=== PATIENT | female | born 1985 | race Caucasian/White ===

== ENCOUNTER 2017-07-05 06:57 | Outpatient (CLI) | payer MEDICAID | END 2017-07-05 06:58 | disposition home or self-care (01) | LOC: EMS 06:57 | PROVIDERS: ATTEND Surgery | DX: R11.10 Vomiting, unspecified (principal) | CPT/HCPCS: A0425; A0429 ==

== ENCOUNTER 2017-07-05 07:15 | Emergency (ER) | payer MEDICAID ==
[2017-07-05 07:21] VITALS: BP 120/76
[2017-07-05] MEDS ORDERED: ONDANSETRON 4 MG/2 ML VIAL IVP STA (07:26)
[2017-07-05] MEDS ORDERED: SODIUM CHLORIDE 0.9% 2,000 ML IV ONE (07:26)
[2017-07-05] MEDS ORDERED: KETOROLAC 60 MG/2 ML VIAL IVP STA (07:26)
--- NOTE | 2017-07-05 07:30 | ED Physician Documentation ---
History of Present Illness - Stated complaint Stated Complaint: ABD PAIN, N/V - Chief complaint Chief Complaint: Abd Pain - Additonal information Additional information: hx from pt 32 female no PMHx no prior surgeries, no meds no allergies, denies preg staying at [facility] and getting meals at [employer] had some abd bloating yesterday and then about 9pm last night, 5 hr after eating dinner (spaghetti), she developed NVD and int sharp abd pains no blood in vomit or diarrhea no one else is ill no travel no recent antibiotics no fever Review of Systems Constitutional: denies: Fever, Chills Cardiac: denies: Chest pain / pressure Respiratory: denies: Dyspnea GI: reports: Abdominal Pain, Nausea, Vomiting, Diarrhea. denies: Hematemesis, Bloody / black stool : denies: Now EGA (denies) Endocrine: denies: Easy bruising / bleeding Immunocompromised: denies: Immunocompromised PD PAST MEDICAL HISTORY - Past Surgical History Past Surgical History: No - Present Medications Home Medications: Ambulatory Orders Medication Instructions Recorded Confirmed Dicyclomine [Bentyl] 10 mg PO Q8H PRN #20 capsule 07/05/17 Ondansetron Odt [Zofran] 4 mg TL Q6H PRN #10 tablet 07/05/17 - Allergies Allergies/Adverse Reactions: Allergies Allergy/AdvReac Type Severity Reaction Status Date / Time No Known Drug Allergies Allergy Verified 07/05/17 07:21 - Social History Does the pt smoke?: Yes Smoking Status: Current every day smoker Does the pt drink ETOH?: Yes Does the pt have substance abuse?: No - Immunizations Immunizations are current?: No Immunizations: TDAP >10years/unknown - POLST Patient has POLST: No PD ED PE NORMAL - Vitals Vital signs reviewed: Yes - General General: Alert and oriented X 3 - HEENT HEENT: Other (dry chapped lips) - Cardiac Cardiac: RRR - Respiratory Respiratory: No respiratory distress - Abdomen Abdomen: Soft, Non tender - Derm Derm: Normal color - Neuro Neuro: Alert and oriented X 3 Results - Vitals Vitals: Vital Signs - 24 hr 07/05/17 07:18 Temperature 36.6 C Heart Rate 85 Respiratory 14 Rate Blood Pressure 120/76 O2 Saturation 96 Oxygen O2 Source Room air - Labs Labs: Laboratory Tests 07/05/17 07/05/17 07/05/17 07:30 07:30 07:30 WBC 14.2 H RBC 5.11 Hgb 15.8 Hct 45.8 MCV 89.5 MCH 31.0 MCHC 34.6 RDW 13.2 Plt Count 246 MPV 8.7 Neut # 13.1 H Lymph # 0.4 L Walker # 0.7 Eos # 0.0 Baso # 0.0 Absolute Nucleated RBC 0.01 Nucleated RBC % 0.1 Sodium 139 Potassium 3.5 Chloride 98 L Carbon Dioxide 28 Anion Gap 13.0 BUN 13 Creatinine 0.7 Estimated GFR (MDRD) 97 Glucose 118 H Calcium 9.8 Total Bilirubin 0.9 AST 22 ALT 22 Alkaline Phosphatase 70 Total Protein 8.9 H Albumin 5.2 Globulin 3.7 Albumin/Globulin Ratio 1.4 Lipase 23 Serum HCG, Qual NEGATIVE PD MEDICAL DECISION MAKING - ED course ED course: benign abd exam doubt food poisoning given that alrge number of people ate same dinner and did not get ill and 2/2 pt had some bloating prior to eating, pt thinks it is 2/2 type of food (chili tacos, spaghetti etc) will give IVF and tx symptomatically given that pt lives in group setting will get stool cx too but sounds viral Departure - Departure Disposition: 01 Home, Self Care Clinical Impression: Dehydration Vomiting Qualifiers: Vomiting type: unspecified Vomiting Intractability: non-intractable Nausea presence: with nausea Qualified Code(s): R11.2 - Nausea with vomiting, unspecified Diarrhea Qualifiers: Diarrhea type: unspecified type Qualified Code(s): R19.7 - Diarrhea, unspecified Condition: Good Instructions: ED Diet Vomiting Diarrhea, ED Gastroenteritis Vs Food Poison Follow-Up: Daphne Zimmer ARNP [Primary Care Provider] - Prescriptions: Dicyclomine [Bentyl] 10 mg PO Q8H PRN #20 capsule PRN Reason: stomach cramps Ondansetron Odt [Zofran] 4 mg TL Q6H PRN #10 tablet PRN Reason: Nausea / Vomiting Comments: Rest. Drink plenty of fluids. If you were able to provide a stool sample, and the results indicate a need for antibiotics, the ER staff will call you - please make sure you gave registration an up to date phone number to reach you at Follow up with your PMD if symptoms persist Return if worse
[2017-07-05 07:43] LABS: BASOPHILS % (AUTO) 0.1 %; EOSINOPHILS % (AUTO) 0.1 %; HGB - HEMOGLOBIN 15.8 g/dL (12.0-16.0); LYMPHOCYTES # (AUTO) 0.4 10^3/uL (1.5-3.5); MEAN CORPUSCULAR HGB CONC 34.6 g/dL (32.0-36.0); MEAN CORPUSCULAR VOLUME 89.5 fL (81.0-99.0); MEAN PLATELET VOLUME 8.7 fL (7.9-10.8); MONOCYTES # (AUTO) 0.7 10^3/uL (0.0-1.0); MONOCYTES % (AUTO) 4.8 %; NEUTROPHILS # (AUTO) 13.1 10^3/uL (1.5-6.6); PLT - PLATELET COUNT 246 10^3/uL (130-450); RED BLOOD COUNT 5.11 10^6/uL (4.20-5.40); RED CELL DISTRIBUTION WIDTH 13.2 % (12.0-15.0); WHITE BLOOD COUNT 14.2 x10^3/uL (4.8-10.8)
[2017-07-05 07:56] LABS: ALBUMIN 5.2 g/dL (3.2-5.5); ALBUMIN/GLOBULIN RATIO 1.4 (1.0-2.2); BILIRUBIN,TOTAL 0.9 mg/dL (0.2-1.0); CALCIUM 9.8 mg/dL (8.5-10.3); CREATININE 0.7 mg/dL (0.4-1.0); TOTAL PROTEIN 8.9 g/dL (6.7-8.2)
[2017-07-05 08:08] LABS: HCG,QUALITATIVE BLOOD NEGATIVE
== END 2017-07-05 09:19 | disposition home or self-care (01) ==
LOC: EDUNIT# → ED 07:15
DX: E86.0 Dehydration (principal); R11.2 Nausea with vomiting, unspecified; R19.7 Diarrhea, unspecified; Z59.0 Homelessness; F17.200 Nicotine dependence, unspecified, uncomplicated
CPT/HCPCS: 36415; 80053; 83690; 84703; 85025; 96374; 96375; 99283; 99284

== ENCOUNTER 2017-08-05 08:01 | Emergency (ER) | payer MEDICAID ==
[2017-08-05 08:10] VITALS: BP 116/73
--- NOTE | 2017-08-05 08:18 | ED Physician Documentation ---
History of Present Illness - Stated complaint Stated Complaint: TOOTH PX - Chief complaint Chief Complaint: General - Additonal information Additional information: hx from pt 32 y/o f denies preg dental decay long standing pain L lower X 5 days states cant get seen at [facility] until September no fever Review of Systems Constitutional: denies: Fever Throat: reports: Dental pain / toothache : denies: Now EGA PD PAST MEDICAL HISTORY - Past Surgical History Past Surgical History: No - Present Medications Home Medications: Ambulatory Orders Medication Instructions Recorded Confirmed Dicyclomine [Bentyl] 10 mg PO Q8H PRN #20 capsule 07/05/17 Ondansetron Odt [Zofran] 4 mg TL Q6H PRN #10 tablet 07/05/17 Amoxicillin 500 mg PO Q8H #30 capsule 08/05/17 HYDROcod/ACETAM 5/325 [[place] 5/325] 1 ea PO Q6H PRN #4 tablet 08/05/17 Ibuprofen [Motrin] 400 mg PO Q6H PRN #20 tablet 08/05/17 - Allergies Allergies/Adverse Reactions: Allergies Allergy/AdvReac Type Severity Reaction Status Date / Time No Known Drug Allergies Allergy Verified 07/05/17 07:21 - Social History Does the pt smoke?: No Smoking Status: Former smoker Does the pt drink ETOH?: Yes Does the pt have substance abuse?: No - Immunizations Immunizations are current?: No Immunizations: TDAP >10years/unknown - POLST Patient has POLST: No PD ED PE NORMAL - Vitals Vital signs reviewed: Yes - HEENT HEENT: Other (extensive decay, TTP L lower premoalr which is broken and missing poisterior 1/3 and 2nd molar which is dacayed down to a stump in the gumline, no visible abscess to drain, no sublingual swelling or trsismus or neck swelling ) - Cardiac Cardiac: RRR - Respiratory Respiratory: No respiratory distress, Clear bilaterally Results - Vitals Vitals: Vital Signs - 24 hr 08/05/17 08:05 Temperature 36.1 C L Heart Rate 71 Respiratory 16 Rate Blood Pressure 116/73 O2 Saturation 98 Oxygen O2 Source Room air Departure - Departure Disposition: Home, Self Care Clinical Impression: Dental infection Condition: Good Instructions: ED Abscess Dental Prescriptions: Amoxicillin 500 mg PO Q8H #30 capsule HYDROcod/ACETAM 5/325 [[place] 5/325] 1 ea PO Q6H PRN #4 tablet PRN Reason: Severe Pain Ibuprofen [Motrin] 400 mg PO Q6H PRN #20 tablet PRN Reason: Pain Comments: Take the antibiotic as prescribed. I have also prescribed motrin for pain and one days worth of vicodin to help until the antibiotics take effect. The antibiotics will help the infection but not the underlying dental decay - it is important you see a dentist as soon as possible Return if worse as discussed
== END 2017-08-05 08:29 | disposition home or self-care (01) ==
LOC: ED 08:01
DX: K04.7 Periapical abscess without sinus (principal); Z87.891 Personal history of nicotine dependence
CPT/HCPCS: 99283

== ENCOUNTER 2017-08-19 07:56 | Emergency (ER) | payer MEDICAID ==
[2017-08-19 08:15] VITALS: BP 132/70
[2017-08-19] MEDS ORDERED: PROPARACAINE 0.5% OPHTH DROPS 15 ML EACHEYE STA (08:22)
--- NOTE | 2017-08-19 08:45 | ED Physician Documentation ---
PD HPI OPHTHO - Stated complaint Stated Complaint: EYE IRRITATION - Chief complaint Chief Complaint: Heent - History obtained from History obtained from: Patient - History of Present Illness Timing - onset: How many days ago (3) Timing - duration: Days (3) Timing - details: Gradual onset, Still present Location: Both Quality / character: Itching, Burning Associated symptoms: Tearing, Discharge, Matting Contributing factors: Other (feels there is a lot of "poop smell" in the air.) Similar symptoms before: Diagnosis (conjunctivitis) Recently seen: Clinic - Additional information Additional information: 32-year-old previously healthy female has developed a bad tooth on the left lower side and has been placed on some amoxicillin about a week ago she is having some improvement in that but now is developed some grittiness to her eyes and discharged from the corner of both of her eyes. She has had this previously with conjunctivitis. Review of Systems Constitutional: denies: Fever Eyes: reports: Discharge, Irritation. denies: Loss of vision, Decreased vision , Photophobia Ears: denies: Ear pain Nose: reports: Congestion. denies: Rhinorrhea / runny nose Throat: reports: Dental pain / toothache. denies: Sore throat Cardiac: denies: Chest pain / pressure, Palpitations Respiratory: reports: Cough. denies: Dyspnea GI: denies: Vomiting Skin: denies: Rash PD PAST MEDICAL HISTORY - Past Medical History Past Medical History: No - Past Surgical History Past Surgical History: No - Present Medications Home Medications: Ambulatory Orders Medication Instructions Recorded Confirmed Amoxicillin 500 mg PO Q8H #30 capsule 08/05/17 08/19/17 Neomycin/Poly/Dex Ophth Drops 1 drops EACHEYE QID #1 bottle 08/19/17 [Maxitrol Ophth Drops] - Allergies Allergies/Adverse Reactions: Allergies Allergy/AdvReac Type Severity Reaction Status Date / Time No Known Drug Allergies Allergy Verified 08/19/17 08:15 - Social History Does the pt smoke?: No Smoking Status: Never smoker Does the pt drink ETOH?: Yes Does the pt have substance abuse?: No - Immunizations Immunizations are current?: No Immunizations: TDAP >10years/unknown - POLST Patient has POLST: No PD ED PE NORMAL - Vitals Vital signs reviewed: Yes - General General: No acute distress, Well developed/nourished - HEENT HEENT: Atraumatic, PERRL, EOMI, Ears normal, Moist mucous membranes, Pharynx benign, Other (There is a broken left lower pre-molar without drainage or swelling . The conjucntiva are with minimal inflamation and no fluoscien uptake. ) - Neck Neck: Supple, no meningeal sign, No bony TTP - Respiratory Respiratory: No respiratory distress - Derm Derm: Normal color, Warm and dry, No rash - Extremities Extremities: No deformity, No edema - Neuro Neuro: Alert and oriented X 3, orthodontist 2-12 intact, No motor deficit, Normal speech Eye Opening: Spontaneous Motor: Obeys Commands Verbal: Oriented GCS Score: 15 - Psych Psych: Normal mood, Normal affect Results - Vitals Vitals: Vital Signs - 24 hr 08/19/17 08:00 Temperature 36.7 C Heart Rate 80 Respiratory 18 Rate Blood Pressure 132/70 H O2 Saturation 96 Oxygen O2 Source Room air PD MEDICAL DECISION MAKING - ED course Complexity details: considered differential, d/w patient ED course: 32-year-old female with a complaint of grittiness to her eyes does not have much in the way of drainage from the eyes acutely here. she has described drainage from the corner of both of her eyes. No evidence of zoster. We will place her on some Maxitrol short-term. Departure - Departure Disposition: 01 Home, Self Care Clinical Impression: Conjunctivitis Qualifiers: Conjunctivitis type: acute Acute conjunctivitis type: bacterial Laterality: bilateral Qualified Code(s): H10.33 - Unspecified acute conjunctivitis, bilateral Condition: Stable Instructions: ED Conjunctivitis Bacterial Follow-Up: Daphne Zimmer ARNP [Primary Care Provider] - Prescriptions: Neomycin/Poly/Dex Ophth Drops [Maxitrol Ophth Drops] 1 drops EACHEYE QID #1 bottle
== END 2017-08-19 08:55 | disposition home or self-care (01) ==
LOC: ED 07:56
DX: H10.33 Unspecified acute conjunctivitis, bilateral (principal)
CPT/HCPCS: 99283; J3490

== ENCOUNTER 2017-09-05 19:53 | Outpatient (CLI) | payer MEDICAID | END 2017-09-05 19:54 | disposition critical access hospital (66) | LOC: EMS 19:53 | PROVIDERS: ATTEND Surgery | DX: R11.2 Nausea with vomiting, unspecified (principal) | CPT/HCPCS: A0425; A0429 ==

== ENCOUNTER 2017-09-05 20:11 | Emergency (ER) | payer MEDICAID ==
[2017-09-05] MEDS ORDERED: ONDANSETRON 4 MG/2 ML VIAL IVP STA (21:25)
[2017-09-05] MEDS ORDERED: SODIUM CHLORIDE 0.9% 1,000 ML IV ONE (21:37)
--- NOTE | 2017-09-05 23:01 | ED Physician Documentation ---
PD HPI NVD - Stated complaint Stated Complaint: VOMITING - Chief complaint Chief Complaint: Abd Pain - History obtained from History obtained from: Patient, EMS - History of Present Illness Timing - onset: Today Timing - details: Abrupt onset, Still present Associated symptoms: Abdominal pain Contributing factors: Bad food Similar symptoms before: Has not had sx before Recently seen: Not recently seen - Additonal information Additional information: Patient is a 32 year old female presenting to the emergency department for vomiting. Patient states that she had multiple episodes that just started today. patient lives in the alf and does not have a ride so she called ems to bring her in. Enroute patient refused IV placement or nausea medicine. Patient states that she is not sure of food that could have caused her symptoms. Review of Systems Constitutional: denies: Fever, Chills Eyes: reports: Reviewed and negative Ears: reports: Reviewed and negative Nose: denies: Rhinorrhea / runny nose, Congestion Throat: denies: Sore throat Cardiac: denies: Chest pain / pressure GI: reports: Abdominal Pain, Nausea, Vomiting, Hematemesis. denies: Diarrhea : reports: Reviewed and negative Skin: reports: Reviewed and negative Musculoskeletal: reports: Reviewed and negative Psychiatric: reports: Delusions, Anxiety PD PAST MEDICAL HISTORY - Past Surgical History Past Surgical History: No - Present Medications Home Medications: Ambulatory Orders Medication Instructions Recorded Confirmed Amoxicillin 500 mg PO Q8H #30 capsule 08/05/17 08/19/17 Neomycin/Poly/Dex Ophth Drops 1 drops EACHEYE QID #1 bottle 08/19/17 [Maxitrol Ophth Drops] Ondansetron Odt [Zofran] 4 mg TL Q6H PRN #10 tablet 09/05/17 - Allergies Allergies/Adverse Reactions: Allergies Allergy/AdvReac Type Severity Reaction Status Date / Time No Known Drug Allergies Allergy Verified 09/05/17 20:18 - Social History Does the pt smoke?: No Smoking Status: Never smoker Does the pt drink ETOH?: Yes Does the pt have substance abuse?: No - Immunizations Immunizations are current?: No Immunizations: TDAP >10years/unknown - POLST Patient has POLST: No PD ED PE NORMAL - Vitals Vital signs reviewed: Yes - General General: Alert and oriented X 3 - HEENT HEENT: Atraumatic, PERRL, Moist mucous membranes - Neck Neck: Supple, no meningeal sign - Cardiac Cardiac: RRR - Respiratory Respiratory: No respiratory distress - Abdomen Abdomen: Soft, Non tender, Non distended - Derm Derm: Normal color, No rash - Extremities Extremities: No deformity - Neuro Neuro: No motor deficit PD ED PE EXPANDED - Psych Psych: Tearful, Agitated, Combative Results - Vitals Vitals: Vital Signs - 24 hr 09/05/17 09/05/17 20:15 22:45 Temperature 36.4 C L 36.8 C Heart Rate 106 H 73 Respiratory 18 18 Rate Blood Pressure 131/87 H 105/63 O2 Saturation 97 97 Oxygen O2 Source Room air PD MEDICAL DECISION MAKING - ED course Complexity details: reviewed old records, reviewed results, re-evaluated patient , considered differential, d/w patient ED course: Patient was seen and examined at bedside. Patient was agitated and verbally abuse. IV was placed and patient was treated with IV fluids and zofran. Patient states that she did not want blood drawn. Patient had no evidence of hematemesis and had no actual episodes of emesis while in the emergency department. Upon discharge patient ripped out her IV and accused ems of stealing her jacket and her food stamps (card). Patient required no further inpatient work up and was stable for discharge with outpatient follow up. Departure - Departure Disposition: 01 Home, Self Care Clinical Impression: Gastroenteritis Condition: Good Instructions: ED Gastroenteritis Bacterial Follow-Up: Daphne Zimmer ARNP [Primary Care Provider] - Prescriptions: Ondansetron Odt [Zofran] 4 mg TL Q6H PRN #10 tablet PRN Reason: Nausea / Vomiting Discharge Date/Time: 09/05/17 23:03
[2017-09-05 23:03] VITALS: BP 105/63
== END 2017-09-05 23:03 | disposition home or self-care (01) ==
LOC: ED 20:11
DX: K52.9 Noninfective gastroenteritis and colitis, unspecified (principal)
CPT/HCPCS: 80053; 80320; 83690; 85025; 96361; 96374; 99283

== ENCOUNTER 2017-11-21 19:48 | Outpatient (CLI) | payer MEDICAID | END 2017-11-21 19:49 | disposition EMS.NT | LOC: EMS 19:48 | PROVIDERS: ATTEND Surgery | DX: K92.0 Hematemesis (principal) ==

== ENCOUNTER 2018-01-06 07:58 | Emergency (ER) | payer MEDICAID ==
[2018-01-06 08:08] VITALS: BP 118/66
--- NOTE | 2018-01-06 08:36 | ED Physician Documentation ---
History of Present Illness - Stated complaint Stated Complaint: WEAKNESS - Chief complaint Chief Complaint: Heent - Additonal information Additional information: hx from pt 2 female denies preg to ER with sinus and ear congestion, foul tasting sinus drainage, now a cough and so no travel lives at group home so perhaps exposed to illness no edema no NVD Review of Systems Constitutional: reports: Fatigue. denies: Fever Ears: reports: Ear pain Nose: reports: Congestion, Sinus pressure / pain Respiratory: reports: Cough GI: denies: Vomiting, Diarrhea : denies: Now EGA Musculoskeletal: denies: Extremity swelling PD PAST MEDICAL HISTORY - Past Medical History Past Medical History: No - Past Surgical History Past Surgical History: No - Present Medications Home Medications: Ambulatory Orders Medication Instructions Recorded Confirmed Fluticasone [Flonase] 1 sprays JORGE BID PRN #1 bottle 01/06/18 Pseudoephedrine [Sudafed] 30 mg PO Q6H PRN #20 tablet 01/06/18 guaiFENesin/DEXTROMETHORPHAN 10 ml PO Q6H PRN #120 ml 01/06/18 [Robitussin Dm] - Allergies Allergies/Adverse Reactions: Allergies Allergy/AdvReac Type Severity Reaction Status Date / Time No Known Drug Allergies Allergy Verified 01/06/18 08:08 - Social History Does the pt smoke?: No Smoking Status: Never smoker Does the pt drink ETOH?: Yes Does the pt have substance abuse?: No - Immunizations Immunizations are current?: No Immunizations: TDAP >10years/unknown - POLST Patient has POLST: No PD ED PE NORMAL - Vitals Vital signs reviewed: Yes - HEENT HEENT: Other (maxillary sinus TTP s focal redness or swelling). No: Ears normal (dull and retracted s erythema or purulence), Moist mucous membranes ( little dry - advised to drink plenty of fluids) - Neck Neck: Supple, no meningeal sign - Cardiac Cardiac: RRR - Respiratory Respiratory: No respiratory distress, Clear bilaterally - Derm Derm: Normal color - Extremities Extremities: No edema - Neuro Neuro: Alert and oriented X 3 Results - Vitals Vitals: Vital Signs - 24 hr 01/06/18 08:05 Temperature 36.4 C L Heart Rate 78 Respiratory 16 Rate Blood Pressure 118/66 O2 Saturation 97 Oxygen O2 Source Room air PD MEDICAL DECISION MAKING - ED course ED course: advised to drink fluids and pt states always thirsty - sugested a blood sugar and she decliens explained lungs sound clear but if coughing and soa rec CXR but pt eclined explained that based on exam does not look like AOM strep or pna and would not rec ab but will rx meds to ease sx she seems OK with this plan - Sepsis Event Vital Signs: Vital Signs - 24 hr 01/06/18 08:05 Temperature 36.4 C L Heart Rate 78 Respiratory 16 Rate Blood Pressure 118/66 O2 Saturation 97 Oxygen O2 Source Room air Departure - Departure Disposition: Home, Self Care Clinical Impression: Sinusitis Qualifiers: Sinusitis location: maxillary Chronicity: acute Recurrence: not specified as recurrent Qualified Code(s): J01.00 - Acute maxillary sinusitis, unspecified Condition: Good Instructions: ED Sinusitis No Abx Follow-Up: Daphne Zimmer ARNP [Primary Care Provider] - Prescriptions: Fluticasone [Flonase] 1 sprays JORGE BID PRN #1 bottle PRN Reason: allergies guaiFENesin/DEXTROMETHORPHAN [Robitussin Dm] 10 ml PO Q6H PRN #120 ml PRN Reason: Cough Pseudoephedrine [Sudafed] 30 mg PO Q6H PRN #20 tablet PRN Reason: congestion Comments: As I explained your exam does not indicate an ear infection, strep throat or pneumonia - so i do not think antibiotics will help Your sinuses are congested and draining and I think that is the source of most of these symptoms I have prescribed medications to ease your symptoms Drink plenty of fluids If your cough or shortness of breath worsens and you want the chest xray after all, please come back to the ER If you continue to be excessively thirsty and want to get a blood est for diabetes please see your PMD or come back to the ER
== END 2018-01-06 08:44 | disposition home or self-care (01) ==
LOC: ED 07:58
DX: J01.00 Acute maxillary sinusitis, unspecified (principal)
CPT/HCPCS: 99283

== ENCOUNTER 2018-03-09 21:54 | Outpatient (CLI) | payer MEDICAID | END 2018-03-09 21:55 | disposition short-term general hospital (02) | LOC: EMS 21:54 | PROVIDERS: ATTEND Surgery | DX: R11.2 Nausea with vomiting, unspecified (principal) | CPT/HCPCS: A0425; A0429; A0999 ==

== ENCOUNTER 2018-04-06 18:49 | Outpatient (CLI) | payer MEDICAID | END 2018-04-06 18:50 | disposition critical access hospital (66) | LOC: EMS 18:49 | PROVIDERS: ATTEND Surgery | DX: M54.9 Dorsalgia, unspecified (principal) | CPT/HCPCS: A0425; A0429; A0999 ==

== ENCOUNTER 2018-04-06 19:06 | Emergency (ER) | payer MEDICAID ==
[2018-04-06] MEDS ORDERED: ONDANSETRON 4 MG/2 ML VIAL IVP STA ×2 (19:18→20:30)
[2018-04-06] MEDS ORDERED: HYDROmorphone 1 MG/ML CARPUJECT IVP STA (19:18)
--- NOTE | 2018-04-06 19:20 | ED Physician Documentation ---
PD HPI ABD PAIN - Stated complaint Stated Complaint: BACK PAIN - History obtained from History obtained from: Patient - History of Present Illness Timing - onset: Today (Around noon today she had sudden onset right flank pain radiating to the right lower quadrant. It does hurt worse with motion. There is no associated nausea. It started at rest. No urinary complaints or hematuria. 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.) Review of Systems Constitutional: denies: Fever, Chills GI: denies: Abdominal Pain, Nausea, Vomiting, Constipation, Diarrhea : denies: Dysuria, Frequency, Hematuria PD PAST MEDICAL HISTORY - Past Surgical History Past Surgical History: No - Present Medications Home Medications: Ambulatory Orders Medication Instructions Recorded Confirmed Fluticasone [Flonase] 1 sprays JORGE BID PRN #1 bottle 01/06/18 Pseudoephedrine [Sudafed] 30 mg PO Q6H PRN #20 tablet 01/06/18 guaiFENesin/DEXTROMETHORPHAN 10 ml PO Q6H PRN #120 ml 01/06/18 [Robitussin Dm] Hydrocodone/Acetaminophen 1 - 2 each PO Q6H PRN #10 tablet 04/06/18 [Hydrocodon-Acetaminophen 5-325] - Allergies Allergies/Adverse Reactions: Allergies Allergy/AdvReac Type Severity Reaction Status Date / Time No Known Drug Allergies Allergy Verified 01/06/18 08:08 - Social History Does the pt smoke?: No Smoking Status: Never smoker Does the pt drink ETOH?: Yes Does the pt have substance abuse?: No - Immunizations Immunizations are current?: No Immunizations: TDAP >10years/unknown - POLST Patient has POLST: No PD ED PE NORMAL - Vitals Vital signs reviewed: Yes - General General: Alert and oriented X 3, No acute distress - HEENT HEENT: PERRL, EOMI - Neck Neck: Supple, no meningeal sign, No bony TTP - Cardiac Cardiac: RRR, No murmur - Respiratory Respiratory: No respiratory distress, Clear bilaterally - Abdomen Abdomen: Normal bowel sounds, Soft, Non tender - Back Back: Other (Some right paralumbar tenderness without focal CVA tenderness.) - Extremities Extremities: No edema, No calf tenderness / cord - Neuro Neuro: Alert and oriented X 3, Normal speech Eye Opening: Spontaneous Motor: Obeys Commands Verbal: Oriented GCS Score: 15 - Psych Psych: Normal mood, Normal affect Results - Vitals Vitals: Vital Signs - 24 hr 04/06/18 19:12 Temperature 37.6 C H Heart Rate 69 Respiratory 18 Rate Blood Pressure 118/73 O2 Saturation 98 Oxygen O2 Source Room air - Labs Labs: Laboratory Tests 04/06/18 04/06/18 04/06/18 19:15 19:30 19:30 WBC 10.3 RBC 4.37 Hgb 13.9 Hct 39.8 MCV 91.1 MCH 31.9 H MCHC 34.9 RDW 13.2 Plt Count 262 MPV 8.5 Neut # (Auto) 5.9 Lymph # (Auto) 3.5 [place] # (Auto) 0.8 Eos # (Auto) 0.1 Baso # (Auto) 0.0 Absolute Nucleated RBC 0.01 Nucleated RBC % 0.1 Sodium 139 Potassium 3.7 Chloride 102 Carbon Dioxide 28 Anion Gap 9.0 BUN 14 Creatinine 0.8 Estimated GFR (MDRD) 83 L Glucose 97 Calcium 9.4 Total Bilirubin 0.2 AST 16 ALT 17 Alkaline Phosphatase 59 Total Protein 8.1 Albumin 4.5 Globulin 3.6 Albumin/Globulin Ratio 1.3 Lipase 32 Urine Color YELLOW Urine Clarity HAZY Urine pH 5.5 Ur Specific [place] 1.020 Urine Protein NEGATIVE Urine Glucose (UA) NEGATIVE Urine Ketones NEGATIVE Urine Occult Blood NEGATIVE Urine Nitrite NEGATIVE Urine Bilirubin NEGATIVE Urine Urobilinogen 0.2 (NORMAL) Ur Leukocyte Esterase TRACE H Urine RBC 0-5 Urine WBC 4-5 Ur Squamous Epith Cells MANY Squamous H Urine Bacteria Few Ur Microscopic Review INDICATED Urine Culture Comments NOT INDICATED Urine HCG, Qual NEGATIVE - Rads (name of study) CT KUB Radiology: EMP read contemporaneously (negative for stone or appy) PD MEDICAL DECISION MAKING - ED course ED course: 33-year-old woman with acute right flank pain radiating to the right lower quadrant. Somewhat consistent with renal colic but no evidence of this on diagnostics. She also has pain with motion and position changing, somewhat consistent with musculoskeletal etiology. - Sepsis Event Vital Signs: Vital Signs - 24 hr 04/06/18 19:12 Temperature 37.6 C H Heart Rate 69 Respiratory 18 Rate Blood Pressure 118/73 O2 Saturation 98 Oxygen O2 Source Room air Departure - Departure Disposition: 01 Home, Self Care Clinical Impression: Abdominal pain Qualifiers: Abdominal location: right lower quadrant Qualified Code(s): R10.31 - Right lower quadrant pain Back pain Qualifiers: Back pain location: low back pain Chronicity: acute Back pain laterality: right Sciatica presence: without sciatica Qualified Code(s): M54.5 - Low back pain Condition: Good Record reviewed to determine appropriate education?: Yes Instructions: ED Abdominal Pain Unkn Cause Prescriptions: Hydrocodone/Acetaminophen [Hydrocodon-Acetaminophen 5-325] 1 - 2 each PO Q6H PRN #10 tablet PRN Reason: pain Comments: Call your doctor to arrange a follow-up appointment, make the next available appointment. In the interim, return anytime if worse or if new symptoms develop.
[2018-04-06 19:31] LABS: BILIRUBIN,URINE NEGATIVE (NEGATIVE); GLUCOSE, URINE (UA) NEGATIVE (NEGATIVE); KETONES,URINE (UA) NEGATIVE (NEGATIVE); LEUKOCYTE ESTERASE, URINE TRACE (NEGATIVE); NITRITE,URINE NEGATIVE (NEGATIVE); OCCULT BLOOD,URINE NEGATIVE (NEGATIVE); PH,URINE 5.5 PH (5.0-7.5); PROTEIN,URINE NEGATIVE (NEGATIVE); UROBILINOGEN,URINE 0.2 (NORMAL) E.U./dL (NORMAL)
[2018-04-06 19:39] LABS: CLARITY,URINE HAZY (CLEAR); HCG UR QUAL NEGATIVE
[2018-04-06 19:41] LABS: BASOPHILS % (AUTO) 0.4 %; EOSINOPHILS # (AUTO) 0.1 10^3/uL (0.0-0.7); HGB - HEMOGLOBIN 13.9 g/dL (12.0-16.0); LYMPHOCYTES # (AUTO) 3.5 10^3/uL (1.5-3.5); LYMPHOCYTES % (AUTO) 33.5 %; MEAN CORPUSCULAR HEMOGLOBIN 31.9 pg (27.0-31.0); MEAN CORPUSCULAR HGB CONC 34.9 g/dL (32.0-36.0); MEAN CORPUSCULAR VOLUME 91.1 fL (81.0-99.0); MEAN PLATELET VOLUME 8.5 fL (7.9-10.8); MONOCYTES # (AUTO) 0.8 10^3/uL (0.0-1.0); NEUTROPHILS # (AUTO) 5.9 10^3/uL (1.5-6.6); NEUTROPHILS % (AUTO) 57.1 %; PLT - PLATELET COUNT 262 10^3/uL (130-450); RED BLOOD COUNT 4.37 10^6/uL (4.20-5.40); RED CELL DISTRIBUTION WIDTH 13.2 % (12.0-15.0); WHITE BLOOD COUNT 10.3 x10^3/uL (4.8-10.8)
[2018-04-06 19:44] LABS: BACTERIA,URINE Few /HPF (None Seen); RBC,URINE 0-5 /HPF (0-5); SQUAMOUS EPITHELIAL CELL,UR MANY Squamous (<= Few)
[2018-04-06 19:52] LABS: ALBUMIN 4.5 g/dL (3.2-5.5); ALBUMIN/GLOBULIN RATIO 1.3 (1.0-2.2); BILIRUBIN,TOTAL 0.2 mg/dL (0.2-1.0); CALCIUM 9.4 mg/dL (8.5-10.3); CREATININE 0.8 mg/dL (0.4-1.0); TOTAL PROTEIN 8.1 g/dL (6.7-8.2)
--- NOTE | 2018-04-06 21:01 | CT Report ---
Reason: R flank pain Procedure Date: 04/06/2018 Accession Number: [id number] / [id number] Procedure: CT - Abdomen/Pelvis W/O CPT Code: FULL RESULT: EXAM: CT ABDOMEN AND PELVIS EXAM DATE: 04/06/2018 08:35 PM. CLINICAL HISTORY: Right flank pain. COMPARISONS: None. TECHNIQUE: Routine helical CT imaging was performed through the abdomen and pelvis. IV contrast: No. Enteric contrast: No. Reconstructions: Coronal and sagittal. In accordance with CT protocol optimization, one or more of the following dose reduction techniques were utilized for this exam: automated exposure control, adjustment of mA and/or KV based on patient size, or use of iterative reconstructive technique. FINDINGS: Lung Bases: Mild bilateral lower lobe dependent atelectasis. Liver: Normal. No masses. Gallbladder/Bile Ducts: Unremarkable. Spleen: Normal. Pancreas: Normal. Adrenal Glands: Normal. Kidneys: Normal. No masses or hydronephrosis. No urinary tract calculi are seen. Peritoneal Cavity/Bowel: Normal. No free fluid, free air or adenopathy. No masses or acute inflammatory process. The appendix appears normal. Pelvic Organs: Normal. The bladder and visualized pelvic organs are within normal limits. Vasculature: No aneurysms or other significant abnormality. Bones: No significant abnormality. IMPRESSION: 1. No urinary tract calculi are seen. No hydronephrosis. 2. Normal appendix. 3. Mild bilateral lower lobe dependent atelectasis. RADIA
[2018-04-06] MEDS ORDERED: HYDROcod/ACET 5/325 Prepack 4 PO STA (21:08)
[2018-04-06 21:20] VITALS: BP 146/77
== END 2018-04-06 21:15 | disposition home or self-care (01) ==
LOC: EDUNIT# → ED 19:06
DX: R10.31 Right lower quadrant pain (principal); M54.5 Low back pain
CPT/HCPCS: 36415; 74176; 80053; 81001; 81025; 83690; 85025; 96374; 99283; J1170; 81003; 87086

== ENCOUNTER 2018-05-10 19:58 | Emergency (ER) | payer MEDICAID ==
--- NOTE | 2018-05-10 20:16 | ED Physician Documentation ---
PD HPI NVD - Stated complaint Stated Complaint: VOMITING - Chief complaint Chief Complaint: Abd Pain - History obtained from History obtained from: Patient - History of Present Illness Timing - onset: How many hours ago (couple of hours ago, per patient), Today Timing - duration: Hours Timing - details: Abrupt onset, Waxing and waning Pain level now: 2 (JUAN) Associated symptoms: No: Fever, Abdominal pain, Chest pain Improved by: No: Eating, Laying still, Vomiting, BM, Position, Meds Worsened by: No: Eating, Moving, Breathing, Position, Palpation Recently seen: Not recently seen - Additonal information Additional information: patient complains of nausea and vomiting that started a few hours prior to arrival. She also has a mild, generalized headache, which is not part of the ief complaint but is noted on review of systems. She has had similar headaches before. Review of Systems Constitutional: reports: Reviewed and negative Eyes: reports: Reviewed and negative Cardiac: reports: Reviewed and negative Respiratory: reports: Reviewed and negative GI: reports: Nausea, Vomiting. denies: Abdominal Pain, Constipation, Diarrhea : denies: Dysuria, Frequency Neurologic: reports: Headache. denies: Head injury PD PAST MEDICAL HISTORY - Past Medical History Past Medical History: No - Past Surgical History Past Surgical History: No - Present Medications Home Medications: Ambulatory Orders Medication Instructions Recorded Confirmed LORazepam [Lorazepam] 0.5 mg PO TID PRN #14 tablet 05/10/18 Ondansetron [Ondansetron Odt] 4 mg PO Q6HR PRN #14 tab.rapdis 05/10/18 - Allergies Allergies/Adverse Reactions: Allergies Allergy/AdvReac Type Severity Reaction Status Date / Time No Known Drug Allergies Allergy Verified 05/10/18 20:05 - Social History Does the pt smoke?: No Smoking Status: Never smoker Does the pt drink ETOH?: Yes Does the pt have substance abuse?: No - Immunizations Immunizations are current?: No Immunizations: TDAP >10years/unknown - POLST Patient has POLST: No PD ED PE NORMAL - Vitals Vital signs reviewed: Yes - General General: Alert and oriented X 3, Well developed/nourished, Other (appears anxious and uncomfortable due to nausea) - HEENT HEENT: Other (pasty/tacky mucous membranes) - Neck Neck: Supple, no meningeal sign - Cardiac Cardiac: RRR, No murmur - Respiratory Respiratory: No respiratory distress, Clear bilaterally - Derm Derm: Normal color, Warm and dry Results - Vitals Vitals: Oxygen O2 Source Room air - Labs Labs: Laboratory Tests 05/10/18 05/10/18 05/10/18 20:15 20:15 21:47 WBC 12.8 H RBC 4.77 Hgb 15.1 Hct 42.8 MCV 89.8 MCH 31.7 H MCHC 35.3 RDW 13.4 Plt Count 288 MPV 8.8 Neut # (Auto) 10.1 H Lymph # (Auto) 1.8 Valley # (Auto) 0.9 Eos # (Auto) 0.0 Baso # (Auto) 0.1 Absolute Nucleated RBC 0.01 Nucleated RBC % 0.1 Sodium 141 Potassium 3.3 L Chloride 103 Carbon Dioxide 25 Anion Gap 13.0 BUN 8 Creatinine 0.7 Estimated GFR (MDRD) 96 Glucose 139 H Calcium 9.7 Total Bilirubin 0.7 AST 20 ALT 16 Alkaline Phosphatase 65 Total Protein 8.9 H Albumin 5.2 Globulin 3.7 Albumin/Globulin Ratio 1.4 Lipase 22 Urine Color YELLOW Urine Clarity CLEAR Urine pH 6.0 Ur Specific [place] >=1.030 H Urine Protein NEGATIVE Urine Glucose (UA) NEGATIVE Urine Ketones 40 H Urine Occult Blood TRACE-LYSE Urine Nitrite NEGATIVE Urine Bilirubin NEGATIVE Urine Urobilinogen 0.2 (NORMAL) Ur Leukocyte Esterase NEGATIVE Ur Microscopic Review NOT INDICATED Urine Culture Comments NOT INDICATED Urine HCG, Qual 05/10/18 21:47 WBC RBC Hgb Hct MCV MCH MCHC RDW Plt Count MPV Neut # (Auto) Lymph # (Auto) Valley # (Auto) Eos # (Auto) Baso # (Auto) Absolute Nucleated RBC Nucleated RBC % Sodium Potassium Chloride Carbon Dioxide Anion Gap BUN Creatinine Estimated GFR (MDRD) Glucose Calcium Total Bilirubin AST ALT Alkaline Phosphatase Total Protein Albumin Globulin Albumin/Globulin Ratio Lipase Urine Color Urine Clarity Urine pH Ur Specific [place] >=1.030 H Urine Protein Urine Glucose (UA) Urine Ketones Urine Occult Blood Urine Nitrite Urine Bilirubin Urine Urobilinogen Ur Leukocyte Esterase Ur Microscopic Review Urine Culture Comments Urine HCG, Qual NEGATIVE PD MEDICAL DECISION MAKING - ED course Complexity details: reviewed results, re-evaluated patient, considered differential, d/w patient ED course: patient reports good symptom relief after IV fluids, zofran, and ativan. SBP 90s is not unusual for her, per patient. Departure - Departure Disposition: 01 Home, Self Care Clinical Impression: Vomiting, Hypokalemia Condition: Good Instructions: ED Potassium Deficiency, ED Nausea Vomiting Follow-Up: Daphne Zimmer ARNP [Primary Care Provider] - Within 1 week Prescriptions: Ondansetron [Ondansetron Odt] 4 mg PO Q6HR PRN #14 tab.rapdis PRN Reason: Nausea / Vomiting LORazepam [Lorazepam] 0.5 mg PO TID PRN #14 tablet PRN Reason: Anxiety Discharge Date/Time: 05/10/18 22:54
[2018-05-10 20:27] LABS: BASOPHILS # (AUTO) 0.1 10^3/uL (0.0-0.1); BASOPHILS % (AUTO) 0.4 %; EOSINOPHILS % (AUTO) 0.1 %; HGB - HEMOGLOBIN 15.1 g/dL (12.0-16.0); LYMPHOCYTES # (AUTO) 1.8 10^3/uL (1.5-3.5); LYMPHOCYTES % (AUTO) 14.2 %; MEAN CORPUSCULAR HEMOGLOBIN 31.7 pg (27.0-31.0); MEAN CORPUSCULAR HGB CONC 35.3 g/dL (32.0-36.0); MEAN CORPUSCULAR VOLUME 89.8 fL (81.0-99.0); MEAN PLATELET VOLUME 8.8 fL (7.9-10.8); MONOCYTES # (AUTO) 0.9 10^3/uL (0.0-1.0); NEUTROPHILS # (AUTO) 10.1 10^3/uL (1.5-6.6); NEUTROPHILS % (AUTO) 78.3 %; PLT - PLATELET COUNT 288 10^3/uL (130-450); RED BLOOD COUNT 4.77 10^6/uL (4.20-5.40); RED CELL DISTRIBUTION WIDTH 13.4 % (12.0-15.0); WHITE BLOOD COUNT 12.8 x10^3/uL (4.8-10.8)
[2018-05-10] MEDS ORDERED: ONDANSETRON 4 MG/2 ML VIAL IVP STA (20:32)
[2018-05-10] MEDS ORDERED: LORazepam 2 MG/ML VIAL IVP STA (20:32)
[2018-05-10] MEDS ORDERED: SODIUM CHLORIDE 0.9% 1,000 ML IV STA (20:32)
[2018-05-10 20:40] LABS: ALBUMIN 5.2 g/dL (3.2-5.5); ALBUMIN/GLOBULIN RATIO 1.4 (1.0-2.2); BILIRUBIN,TOTAL 0.7 mg/dL (0.2-1.0); CALCIUM 9.7 mg/dL (8.5-10.3); CREATININE 0.7 mg/dL (0.4-1.0); TOTAL PROTEIN 8.9 g/dL (6.7-8.2)
[2018-05-10 22:00] LABS: BILIRUBIN,URINE NEGATIVE (NEGATIVE); GLUCOSE, URINE (UA) NEGATIVE (NEGATIVE); KETONES,URINE (UA) 40 mg/dL (NEGATIVE); LEUKOCYTE ESTERASE, URINE NEGATIVE (NEGATIVE); NITRITE,URINE NEGATIVE (NEGATIVE); OCCULT BLOOD,URINE TRACE-LYSE (NEGATIVE); PROTEIN,URINE NEGATIVE (NEGATIVE); UROBILINOGEN,URINE 0.2 (NORMAL) E.U./dL (NORMAL)
[2018-05-10 22:04] LABS: CLARITY,URINE CLEAR (CLEAR); HCG UR QUAL NEGATIVE
[2018-05-10 22:12] VITALS: BP 103/60
[2018-05-10] MEDS ORDERED: POTASSIUM BICARB 25 MEQ TABLET PO STA (22:47)
== END 2018-05-10 22:54 | disposition home or self-care (01) ==
LOC: ED 19:58
DX: R11.2 Nausea with vomiting, unspecified (principal); E87.6 Hypokalemia
CPT/HCPCS: 36415; 80053; 81003; 81025; 83690; 85025; 96361; 96374; 99283; A9270; J2060; 81001; 87086

== ENCOUNTER 2018-05-27 08:00 | Emergency (ER) | payer MEDICAID ==
--- NOTE | 2018-05-27 08:13 | ED Physician Documentation ---
PD HPI GI BLEED - Stated complaint Stated Complaint: BLOOD IN STOOL - History obtained from History obtained from: Patient - History of Present Illness Timing - onset: Yesterday (noted passage of a worm per rectum, with some stool as well. She says she saw it just as toilet was flushing, so not able to bring it.), How many months ago (has noted some dark/black stools at times over the past few months. Has had intermittent abd cramps and nausea for months, and says she has "had intestinal issues since she was a teenager".) Timing - details: Other (has had abd cramps, irregular stools, some melena intermittently for months to years, per patient. No prior worms noted recently. She says she noted some small worms in her stool once when she was young, like 7 years old.) Associated symptoms: Black/tarry stool, Loss of appetite. No: BRBPR, Diarrhea, Fever Contributing factors: No: Sick contact, Bad food, Travel Similar symptoms before: No diagnosis Recently seen: Emergency Dept (for abd cramps, with normal blood tests.) Review of Systems Constitutional: reports: Fatigue. denies: Fever, Chills, Myalgias GI: reports: Abdominal Pain, Nausea, Bloody / black stool. denies: Vomiting, Constipation, Diarrhea : denies: Dysuria, Frequency PD PAST MEDICAL HISTORY - Past Medical History Cardiovascular: None Respiratory: None Neuro: None GI: GERD, Ulcers - Past Surgical History Past Surgical History: No - Present Medications Home Medications: Ambulatory Orders Medication Instructions Recorded Confirmed LORazepam [Lorazepam] 0.5 mg PO TID PRN #14 tablet 05/10/18 Ondansetron [Ondansetron Odt] 4 mg PO Q6HR PRN #14 tab.rapdis 05/10/18 Famotidine 20 mg PO DAILY #30 tablet 05/27/18 Mebendazole [Emverm] 100 mg PO BID #6 tab.chew 05/27/18 Ondansetron Odt [Zofran] 4 mg TL Q6H PRN #10 tablet 05/27/18 - Allergies Allergies/Adverse Reactions: Allergies Allergy/AdvReac Type Severity Reaction Status Date / Time No Known Drug Allergies Allergy Verified 05/27/18 08:18 - Social History Does the pt smoke?: No Smoking Status: Never smoker Does the pt drink ETOH?: Yes Does the pt have substance abuse?: No - Immunizations Immunizations are current?: No Immunizations: TDAP >10years/unknown - POLST Patient has POLST: No PD ED PE NORMAL - Vitals Vital signs reviewed: Yes - General General: Alert and oriented X 3, No acute distress, Well developed/nourished - Cardiac Cardiac: RRR, No murmur - Respiratory Respiratory: Clear bilaterally - Abdomen Abdomen: Normal bowel sounds, Soft, Non tender, Non distended, No organomegaly - Female Female : Deferred - Rectal Rectal: Deferred - Back Back: No CVA TTP - Derm Derm: Normal color, Warm and dry - Neuro Neuro: Alert and oriented X 3, Normal speech Results - Vitals Vitals: Vital Signs - 24 hr 05/27/18 05/27/18 08:03 09:26 Temperature 36.4 C L 36.5 C Heart Rate 83 80 Respiratory 18 18 Rate Blood Pressure 151/100 H 140/87 H O2 Saturation 100 100 Oxygen O2 Source Room air PD MEDICAL DECISION MAKING - ED course Complexity details: considered differential (normal recent labs, so did not feel need to recheck blood count in lieu of the "months of melena". She reports passing a worm in stool that was longer (more like tapeworm and not pinworm, my editorial). I would empirically treat antihelminthic, given the low accuracy of O&P testing. ), d/w patient Departure - Departure Disposition: 01 Home, Self Care Clinical Impression: Intestinal worms, Melena Condition: Stable Record reviewed to determine appropriate education?: Yes Instructions: ED Hematochezia Stable Follow-Up: Madeleine Edwards ARNP [Primary Care Provider] - Prescriptions: Famotidine 20 mg PO DAILY #30 tablet Mebendazole [Emverm] 100 mg PO BID #6 tab.chew Ondansetron Odt [Zofran] 4 mg TL Q6H PRN #10 tablet PRN Reason: Nausea / Vomiting Comments: Drink lots of fluids. I looked up the best dosing for intestinal worms and it was the mebendazole twice daily for 3 days. Given your intestinal pains and recent episodes of vomiting, I would also suggest some acid reducing medicines such as famotidine daily for a month. I would answer trying if needed for nausea. Tylenol if needed for pains or cramps. You may pass other worms after taking the above medication as they detached from the wall and clear out in the stool. That would be normal. Follow-up with your primary care if not improved in a week or so. Discharge Date/Time: 05/27/18 09:26
[2018-05-27 09:49] VITALS: BP 140/87
== END 2018-05-27 09:26 | disposition home or self-care (01) ==
LOC: ED 08:00
DX: B82.0 Intestinal helminthiasis, unspecified (principal); K92.1 Melena
CPT/HCPCS: 99283

== ENCOUNTER 2018-06-24 09:01 | Emergency (ER) | payer MEDICAID ==
[2018-06-24 10:11] LABS: HCG UR QUAL NEGATIVE
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
[2018-06-24 11:39] VITALS: BP 116/66
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
== END 2018-06-24 12:00 | disposition home or self-care (01) ==
LOC: ED 09:01
DX: M54.2 Cervicalgia (principal); G89.4 Chronic pain syndrome; Z59.0 Homelessness
CPT/HCPCS: 72125; 81025; 99283

== ENCOUNTER 2018-06-26 12:59 | Emergency (ER) | payer MEDICAID ==
[2018-06-26 13:06] VITALS: BP 162/133
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
== END 2018-06-26 13:26 | disposition home or self-care (01) ==
LOC: ED 12:59
DX: M54.2 Cervicalgia (principal); R03.0 Elevated blood-pressure reading, without diagnosis of hypertension
CPT/HCPCS: 99283

== ENCOUNTER 2019-01-25 06:43 | Emergency (ER) | payer MEDICAID ==
[2019-01-25 06:51] VITALS: BP 134/76
[2019-01-25 07:17] LABS: BASOPHILS # (AUTO) 0.1 10^3/uL (0.0-0.1); BASOPHILS % (AUTO) 0.6 %; EOSINOPHILS # (AUTO) 0.1 10^3/uL (0.0-0.7); EOSINOPHILS % (AUTO) 1.4 %; HGB - HEMOGLOBIN 13.4 g/dL (12.0-16.0); LYMPHOCYTES # (AUTO) 1.8 10^3/uL (1.5-3.5); LYMPHOCYTES % (AUTO) 22.7 %; MEAN CORPUSCULAR HEMOGLOBIN 30.9 pg (27.0-31.0); MEAN CORPUSCULAR HGB CONC 33.4 g/dL (32.0-36.0); MEAN CORPUSCULAR VOLUME 92.4 fL (81.0-99.0); MEAN PLATELET VOLUME 10.7 fL (7.9-10.8); MONOCYTES # (AUTO) 0.8 10^3/uL (0.0-1.0); MONOCYTES % (AUTO) 10.5 %; NEUTROPHILS # (AUTO) 5.1 10^3/uL (1.5-6.6); NEUTROPHILS % (AUTO) 64.4 %; PLT - PLATELET COUNT 257 10^3/uL (130-450); RED BLOOD COUNT 4.34 10^6/uL (4.20-5.40); RED CELL DISTRIBUTION WIDTH 12.4 % (12.0-15.0); WHITE BLOOD COUNT 7.9 x10^3/uL (4.8-10.8)
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
[2019-01-25] MEDS ORDERED: HALOPERIDOL 5 MG/ML VIAL IVP STA (07:28)
[2019-01-25] MEDS ORDERED: diphenhydrAMINE INJ 50 MG/ML VIAL IVP STA (07:29)
[2019-01-25] MEDS ORDERED: SODIUM CHLORIDE 0.9% 1,000 ML IV ONE ×2 (07:29)
[2019-01-25 07:37] LABS: BILIRUBIN,TOTAL 0.5 mg/dL (0.2-1.0); CALCIUM 8.9 mg/dL (8.5-10.3); CREATININE 0.7 mg/dL (0.4-1.0)
[2019-01-25 07:38] LABS: ALBUMIN 3.9 g/dL (3.2-5.5); ALBUMIN/GLOBULIN RATIO 1.3 (1.0-2.2); TOTAL PROTEIN 6.8 g/dL (6.7-8.2)
[2019-01-25 07:48] LABS: ACETAMINOPHEN < 10 ug/mL (10-30); SALICYLATE < 4.0 mg/dL
== END 2019-01-25 08:10 | disposition home or self-care (01) ==
LOC: EDUNIT# → ED 06:43
DX: R10.9 Unspecified abdominal pain (principal); R11.2 Nausea with vomiting, unspecified; Z53.20 Procedure and treatment not carried out because of patient's decision for unspecified reasons
CPT/HCPCS: 36415; 80053; 80307; 80320; 80329; 83690; 84443; 85025

== ENCOUNTER 2019-01-25 08:41 | Emergency (ER) | payer MEDICAID ==
[2019-01-25] MEDS ORDERED: OLANZapine ODT 5 MG TABLET TL STA (08:51)
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
[2019-01-25 08:57] LABS: MUDS CUTOFF CONCENTRATIONS CUTOFF CONC BELOW:
[2019-01-25 09:00] LABS: BILIRUBIN,URINE NEGATIVE (NEGATIVE); GLUCOSE, URINE (UA) NEGATIVE (NEGATIVE); KETONES,URINE (UA) NEGATIVE (NEGATIVE); LEUKOCYTE ESTERASE, URINE NEGATIVE (NEGATIVE); NITRITE,URINE NEGATIVE (NEGATIVE); OCCULT BLOOD,URINE NEGATIVE (NEGATIVE); PROTEIN,URINE NEGATIVE (NEGATIVE); UROBILINOGEN,URINE 0.2 (NORMAL) E.U./dL (NORMAL)
[2019-01-25 09:12] LABS: CLARITY,URINE SL. CLOUDY (CLEAR); HCG UR QUAL NEGATIVE
[2019-01-25 09:17] LABS: BACTERIA,URINE Moderate /HPF (None Seen); RBC,URINE None Seen /HPF (0-5); SQUAMOUS EPITHELIAL CELL,UR MANY Squamous (<= Few)
[2019-01-25 09:19] LABS: AMPHETAMINE SCREEN,URINE NEGATIVE (NEGATIVE); BENZODIAZEPINES SCREEN, URINE NEGATIVE (NEGATIVE); COCAINE SCREEN URINE NEGATIVE (NEGATIVE); METHADONE SCREEN, URINE NEGATIVE (NEGATIVE); METHAMPHETAMINES SCREEN, URINE NEGATIVE (NEGATIVE); OPIATE SCREEN, URINE NEGATIVE (NEGATIVE); OXYCODONE SCREEN, URINE NEGATIVE (NEGATIVE); PROPOXYPHENE SCREEN, URINE NEGATIVE (NEGATIVE); TRICYCLIC ANTIDEPRESSANT,URINE NEGATIVE (NEGATIVE)
[2019-01-25] MEDS ORDERED: NITROFURANTOIN MACRO 100 MG CAPSULE PO STA (09:41)
[2019-01-25 19:44] VITALS: BP 119/67
== END 2019-01-25 21:12 ==
LOC: EDUNIT# → ED 08:41
DX: F20.9 Schizophrenia, unspecified (principal); R10.9 Unspecified abdominal pain; R11.2 Nausea with vomiting, unspecified
CPT/HCPCS: 36415; 80053; 80306; 80307; 80320; 80329; 81001; 81025; 83690; 84443; 85025; 99285; A9270; 81003; 87086

== ENCOUNTER 2019-06-20 12:14 | Outpatient (CLI) | payer MEDICAID | END 2019-06-20 12:15 | disposition critical access hospital (66) | LOC: EMS 12:14 | PROVIDERS: ATTEND Surgery | DX: S00.83XA Contusion of other part of head, initial encounter (principal); X83.8XXA Intentional self-harm by other specified means, initial encounter; Y92.009 Unspecified place in unspecified non-institutional (private) residence as the place of occurrence of the external cause; R44.0 Auditory hallucinations; R45.1 Restlessness and agitation | CPT/HCPCS: A0425; A0429; A0999 ==

== ENCOUNTER 2019-06-20 12:31 | Emergency (ER) | payer MEDICAID ==
[2019-06-20 12:38] VITALS: BP 107/72
--- NOTE | 2019-06-20 12:49 | ED Physician Documentation ---
PD HPI MHE - Stated complaint Stated Complaint: MHE - Chief complaint Chief Complaint: MHE - History obtained from History obtained from: Patient (34-year-old woman presents by ambulance for potential mental health evaluation. She said her eyes hurt the other day and she smacked her face. There was no self-harm intent. There was some sort of misunderstanding and someone called the police who did not detain her but she is brought in by paramedics. She says she has no suicidal or homicidal ideation. No severe depression. No problems with drugs or alcohol. She is homeless. She declines offers at inpatient psychiatric placement.) Review of Systems Constitutional: denies: Fever, Chills Cardiac: denies: Chest pain / pressure Respiratory: denies: Dyspnea GI: denies: Abdominal Pain, Nausea, Vomiting, Diarrhea PD PAST MEDICAL HISTORY - Past Medical History Cardiovascular: None Respiratory: None Neuro: None GI: GERD, Ulcers Psych: Other - Past Surgical History Past Surgical History: No - Present Medications Home Medications: Ambulatory Orders Medication Instructions Recorded Confirmed No Known Home Medications 06/26/18 06/26/18 Physical Therapy 1 unit TD ONCE #1 06/26/18 - Allergies Allergies/Adverse Reactions: Allergies Allergy/AdvReac Type Severity Reaction Status Date / Time No Known Drug Allergies Allergy Verified 06/20/19 12:34 - Social History Does the pt smoke?: No Smoking Status: Never smoker Does the pt drink ETOH?: Yes Does the pt have substance abuse?: No - Immunizations Immunizations are current?: No Immunizations: TDAP >10years/unknown - POLST Patient has POLST: No PD ED PE NORMAL - Vitals Vital signs reviewed: Yes - General General: Alert and oriented X 3, Other (Well-appearing woman who is quiet but with decent eye sick contact in no distress) - HEENT HEENT: PERRL, EOMI, Other (No facial bony tenderness but there is a little bit of bruising in the infraorbital areas bilaterally.) - Neck Neck: Supple, no meningeal sign, No bony TTP - Neuro Neuro: Alert and oriented X 3, 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 Departure - Departure Disposition: 01 Home, Self Care Clinical Impression: Facial contusion Qualifiers: Encounter type: initial encounter Qualified Code(s): S00.83XA - Contusion of other part of head, initial encounter Condition: Good Record reviewed to determine appropriate education?: Yes Instructions: ED Stress React Comments: Follow-up with [facility] at [phone] to schedule psychiatric care and counseling. Avoid drugs and alcohol. Return anytime if you have Psychiatric or medical needs.
== END 2019-06-20 12:53 | disposition home or self-care (01) ==
LOC: EDUNIT# → ED 12:31
DX: S00.83XA Contusion of other part of head, initial encounter (principal); X58.XXXA Exposure to other specified factors, initial encounter; Z59.0 Homelessness
CPT/HCPCS: 99282

== ENCOUNTER 2019-07-04 08:54 | Outpatient (CLI) | payer MEDICAID | END 2019-07-04 08:55 | disposition EMS.NT | LOC: EMS 08:54 | PROVIDERS: ATTEND Surgery | DX: H93.92 Unspecified disorder of left ear (principal) ==

== ENCOUNTER 2019-07-04 14:06 | Emergency (ER) | payer MEDICAID ==
[2019-07-04 14:18] VITALS: BP 141/89
[2019-07-04] MEDS ORDERED: AMOX/CLAV 875 MG/125 MG TABLET PO STA (15:25)
--- NOTE | 2019-07-04 15:29 | ED Physician Documentation ---
PD HPI MHE - Stated complaint Stated Complaint: MHE - Chief complaint Chief Complaint: MHE - History obtained from History obtained from: Patient, Family - History of Present Illness Primary symptom: Other (states L ear pain, believes there are mites in her ears. States put bleach into her ear to kill the mites.) Pain level max: 0 Pain level now: 0 Similar symptoms before: Diagnosis (schizophrenia) Recently seen: Not recently seen - Additional information Additional information: 34-year-old female states that she is staying in a place with "lots of genetic code" everywhere. She states that when she tried to remove the genetic code from a bookshelf the bone mites fell down and infiltrated her ear. She is trying to kill the bone mites with bleach. She is not suicidal or homicidal. She denies any drug use. Review of Systems Ten Systems: 10 systems reviewed and negative Constitutional: denies: Fever, Chills Ears: denies: Ear pain Nose: denies: Rhinorrhea / runny nose, Congestion Respiratory: denies: Cough GI: denies: Nausea, Vomiting Skin: denies: Rash Musculoskeletal: denies: Neck pain, Back pain Psychiatric: reports: Hallucinations, Delusions PD PAST MEDICAL HISTORY - Past Medical History Cardiovascular: None Respiratory: None Neuro: None GI: GERD, Ulcers Psych: Other - Past Surgical History Past Surgical History: No - Present Medications Home Medications: Ambulatory Orders Medication Instructions Recorded Confirmed Physical Therapy 1 unit TD ONCE #1 06/26/18 Amox/Clav 875/125 [Augmentin] 1 each PO Q12H #20 tablet 07/04/19 OLANZapine ODT [Zyprexa Odt] 5 mg TL DAILY #14 tablet 07/04/19 - Allergies Allergies/Adverse Reactions: Allergies Allergy/AdvReac Type Severity Reaction Status Date / Time No Known Drug Allergies Allergy Verified 07/04/19 14:18 - Social History Does the pt smoke?: No Smoking Status: Never smoker Does the pt drink ETOH?: Yes Does the pt have substance abuse?: No - Immunizations Immunizations are current?: No Immunizations: TDAP >10years/unknown - POLST Patient has POLST: No PD ED PE NORMAL - Vitals Vital signs reviewed: Yes - General General: No acute distress, Other (alert, oriented to person and place) - HEENT HEENT: PERRL, Moist mucous membranes, Pharynx benign, Other (L TM is erythematous, dull, bulging with loss of landmarks. Purulent fluid present. R TM is normal) - Neck Neck: Supple, no meningeal sign - Cardiac Cardiac: RRR, Strong equal pulses - Respiratory Respiratory: No respiratory distress, Clear bilaterally - Abdomen Abdomen: Soft, Non tender, Non distended - Derm Derm: Warm and dry - Neuro Neuro: Alert and oriented X 3 - Psych Psych: Normal mood, Normal affect Results - Vitals Vitals: Vital Signs - 24 hr 07/04/19 14:11 Temperature 36.6 C Heart Rate 104 H Respiratory 20 Rate Blood Pressure 141/89 H O2 Saturation 100 Oxygen O2 Source Room air PD MEDICAL DECISION MAKING - ED course Complexity details: considered differential, d/w patient, d/w family ED course: Family states that she is at her mental baseline. She is disorganized, but is not suicidal or homicidal. We will place her on antibiotics for her ear infection. John Parrish [facility] Zelalem was also present when she was in the ED and spoke with the patient. He knows her well and sees her almost daily. He states that she is at her baseline as well. Patient and family counseled regarding signs and symptoms for which I believe and urgent re-evaluation would be necessary. Patient with good understanding of and agreement to plan and is comfortable going home at this time This document was made in part using voice recognition software. While efforts are made to proofread this document, sound alike and grammatical errors may occur. She refuses any other work-up at this time Departure - Departure Disposition: 01 Home, Self Care Clinical Impression: Otitis media Qualifiers: Otitis media type: suppurative Chronicity: acute Laterality: left Recurrence: not specified as recurrent Spontaneous tympanic membrane rupture: without spontaneous rupture Qualified Code(s): H66.002 - Acute suppurative otitis media without spontaneous rupture of ear drum, left ear Condition: Good Instructions: ED Otitis Media Acute Adult Follow-Up: Daphne Zimmer ARNP [Primary Care Provider] - Within 1 week Prescriptions: Amox/Clav 875/125 [Augmentin] 1 each PO Q12H #20 tablet OLANZapine ODT [Zyprexa Odt] 5 mg TL DAILY #14 tablet Comments: Take all antibiotics until gone. Return if you worsen. Follow-up with your doctor for further care. Discharge Date/Time: 07/04/19 15:45
--- NOTE | 2019-07-05 20:33 | ED Physician Documentation ---
ED Addendum - Addendum Addendum: 07/05/19 20:32 Her sister was here, states patient left before obtaining prescriptions, and patient refused to come back into the department, at the sister's request they were sent electronically to [facility].
== END 2019-07-04 15:45 | disposition home or self-care (01) ==
LOC: ED 14:06
DX: H66.002 Acute suppurative otitis media without spontaneous rupture of ear drum, left ear (principal)
CPT/HCPCS: 80053; 80307; 80320; 80329; 83690; 84443; 85025; 99283; 99284

== ENCOUNTER 2019-07-20 05:19 | Outpatient (CLI) | payer MEDICAID | END 2019-07-20 05:20 | disposition critical access hospital (66) | LOC: EMS 05:19 | PROVIDERS: ATTEND Surgery | DX: R53.1 Weakness (principal) | CPT/HCPCS: A0425; A0429 ==

== ENCOUNTER 2019-07-20 05:35 | Emergency (ER) | payer MEDICAID ==
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
[2019-07-20 05:53] VITALS: BP 115/86
[2019-07-20] MEDS ORDERED: NEOMYCIN/POLYMYX/HC OTIC DROPS RIGHTEAR STA (05:53)
[2019-07-20] MEDS ORDERED: ACETAMINOPHEN 325 MG TABLET PO STA (05:53)
[2019-07-20] MEDS ORDERED: DOXYCYCLINE 100 MG TABLET PO STA (05:53)
[2019-07-20] MEDS ORDERED: OLANZapine ODT 5 MG TABLET TL STA (05:53)
== END 2019-07-20 06:26 | disposition home or self-care (01) ==
LOC: EDUNIT# → ED 05:35
DX: H60.11 Cellulitis of right external ear (principal); F25.9 Schizoaffective disorder, unspecified; Z59.0 Homelessness
CPT/HCPCS: 99284; 99285

== ENCOUNTER 2019-07-20 18:30 | Emergency (ER) | payer MEDICAID ==
[2019-07-20 18:55] LABS: MUDS CUTOFF CONCENTRATIONS CUTOFF CONC BELOW:
[2019-07-20 18:58] LABS: GLUCOSE, URINE (UA) NEGATIVE (NEGATIVE); KETONES,URINE (UA) 15 mg/dL (NEGATIVE); LEUKOCYTE ESTERASE, URINE NEGATIVE (NEGATIVE); NITRITE,URINE NEGATIVE (NEGATIVE); OCCULT BLOOD,URINE NEGATIVE (NEGATIVE); PH,URINE 5.5 PH (5.0-7.5); PROTEIN,URINE 30 mg/dL (NEGATIVE); UROBILINOGEN,URINE 1 (NORMAL) E.U./dL (NORMAL)
[2019-07-20 19:00] LABS: BILIRUBIN,URINE NEGATIVE (NEGATIVE); CLARITY,URINE CLEAR (CLEAR); HCG UR QUAL NEGATIVE; ICTOTEST,URINE NEGATIVE
[2019-07-20 19:06] LABS: BACTERIA,URINE Few /HPF (None Seen); MUCUS,URINE Moderate Strands; RBC,URINE None Seen /HPF (0-5); SQUAMOUS EPITHELIAL CELL,UR MOD Squamous (<= Few)
[2019-07-20 19:08] LABS: AMPHETAMINE SCREEN,URINE POSITIVE (NEGATIVE); BENZODIAZEPINES SCREEN, URINE NEGATIVE (NEGATIVE); COCAINE SCREEN URINE NEGATIVE (NEGATIVE); METHADONE SCREEN, URINE NEGATIVE (NEGATIVE); METHAMPHETAMINES SCREEN, URINE POSITIVE (NEGATIVE); OPIATE SCREEN, URINE NEGATIVE (NEGATIVE); OXYCODONE SCREEN, URINE NEGATIVE (NEGATIVE); PROPOXYPHENE SCREEN, URINE NEGATIVE (NEGATIVE); TRICYCLIC ANTIDEPRESSANT,URINE NEGATIVE (NEGATIVE)
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
[2019-07-20 19:20] LABS: BASOPHILS # (AUTO) 0.1 10^3/uL (0.0-0.1); BASOPHILS % (AUTO) 0.7 %; EOSINOPHILS # (AUTO) 0.1 10^3/uL (0.0-0.7); EOSINOPHILS % (AUTO) 1.1 %; HGB - HEMOGLOBIN 14.9 g/dL (12.0-16.0); LYMPHOCYTES # (AUTO) 2.3 10^3/uL (1.5-3.5); LYMPHOCYTES % (AUTO) 21.9 %; MEAN CORPUSCULAR HEMOGLOBIN 29.8 pg (27.0-31.0); MEAN CORPUSCULAR HGB CONC 33.9 g/dL (32.0-36.0); MEAN CORPUSCULAR VOLUME 87.8 fL (81.0-99.0); MEAN PLATELET VOLUME 10.2 fL (7.9-10.8); MONOCYTES # (AUTO) 0.8 10^3/uL (0.0-1.0); MONOCYTES % (AUTO) 8.2 %; NEUTROPHILS % (AUTO) 67.7 %; PLT - PLATELET COUNT 289 10^3/uL (130-450); RED CELL DISTRIBUTION WIDTH 12.7 % (12.0-15.0); WHITE BLOOD COUNT 10.3 x10^3/uL (4.8-10.8)
[2019-07-20 19:39] LABS: ACETAMINOPHEN < 10 ug/mL (10-30); ALBUMIN/GLOBULIN RATIO 1.6 (1.0-2.2); ALKALINE PHOSPHATASE 54 IU/L (42-121); ALT ALANINE AMINOTRANSFERASE 19 IU/L (10-60); AST ASPARTATE AMINOTRANSFERASE 28 IU/L (10-42); BILIRUBIN,TOTAL 0.9 mg/dL (0.2-1.0); BUN - BLOOD UREA NITROGEN 15 mg/dL (6-20); CALCIUM 9.7 mg/dL (8.5-10.3); CARBON DIOXIDE - CO2 24 mmol/L (21-32); CHLORIDE 99 mmol/L (101-111); CREATININE 0.8 mg/dL (0.4-1.0); GFR - MDRD 82 (>89); GLUCOSE 126 mg/dL (70-100); LIPASE 23 U/L (22-51); SALICYLATE < 6.0 mg/dL; SODIUM 138 mmol/L (135-145); TOTAL PROTEIN 8.2 g/dL (6.7-8.2)
[2019-07-20] MEDS ORDERED: OLANZapine ODT 5 MG TABLET TL ONE (20:24)
[2019-07-20] MEDS ORDERED: POTASSIUM CHLORIDE 20 MEQ/15 ML UDC PO STA (21:23)
[2019-07-20] MEDS ORDERED: POTASSIUM CHLORIDE 20 MEQ TABLET PO STA (21:52)
[2019-07-20] MEDS ORDERED: OLANZapine 10 MG VIAL IM STA (22:37)
[2019-07-20] MEDS: NEOMYCIN/POLYMYX/HC OTIC DROPS RIGHTEAR STA (22:51)
[2019-07-21 00:11] LABS: CALCIUM 9.4 mg/dL (8.5-10.3); CREATININE 0.8 mg/dL (0.4-1.0)
[2019-07-21] MEDS ORDERED: OLANZapine ODT 5 MG TABLET TL ONE (00:44)
[2019-07-21] MEDS ORDERED: LORazepam 1 MG TABLET PO STA (01:01)
[2019-07-21] MEDS: NEOMYCIN/POLYMYX/HC OTIC DROPS RIGHTEAR STA (01:06)
[2019-07-21 01:54] VITALS: BP 121/90
== END 2019-07-21 04:41 ==
LOC: EDUNIT# → ED 18:30
DX: F25.9 Schizoaffective disorder, unspecified (principal); H60.501 Unspecified acute noninfective otitis externa, right ear; H60.11 Cellulitis of right external ear; E87.6 Hypokalemia; Z59.0 Homelessness
CPT/HCPCS: 36415; 80048; 80053; 80306; 80307; 80320; 80329; 81001; 81025; 83690; 84443; 85025; 93005; 99284; 99285; A9270; J8499; 81003; 87086

== ENCOUNTER 2019-08-24 05:11 | Outpatient (CLI) | payer MEDICAID | END 2019-08-24 05:12 | disposition critical access hospital (66) | LOC: EMS 05:11 | PROVIDERS: ATTEND Surgery | DX: H92.01 Otalgia, right ear (principal) | CPT/HCPCS: A0425; A0429 ==

== ENCOUNTER 2019-08-24 05:25 | Emergency (ER) | payer MEDICAID ==
--- NOTE | 2019-08-24 05:15 | ED Physician Documentation ---
History of Present Illness - Stated complaint Stated Complaint: EAR PAIN - History obtained from History obtained from: Patient (The patient is a 34 y/o f who p/w r ear pain, states she is using cortispiron drops in her right eart and new c/o of worsening ear pain and redness and now notices bloody purulent discharge from her right ear without headaches, neck pain or rashes, denies pain behind the ear, denies diabetes or trauma. denies any altitude changes or recent swimming in fresh or saltwater.) Review of Systems Constitutional: reports: Reviewed and negative. denies: Fever Eyes: reports: Reviewed and negative Ears: reports: Ear pain, Drainage/discharge. denies: Loss of hearing Nose: reports: Reviewed and negative Throat: reports: Reviewed and negative Cardiac: reports: Reviewed and negative Respiratory: reports: Reviewed and negative GI: reports: Reviewed and negative : reports: Reviewed and negative Skin: reports: Reviewed and negative Musculoskeletal: reports: Reviewed and negative Neurologic: reports: Reviewed and negative Psychiatric: reports: Reviewed and negative Endocrine: reports: Reviewed and negative Immunocompromised: reports: Reviewed and negative PD PAST MEDICAL HISTORY - Present Medications Home Medications: Ambulatory Orders Medication Instructions Recorded Confirmed Amox/Clav 875/125 [Augmentin] 1 each PO Q12H #20 tablet 07/04/19 OLANZapine ODT [Zyprexa Odt] 5 mg TL DAILY #14 tablet 07/04/19 Doxycycline Monohydrate 100 mg PO BID #14 tablet 07/20/19 Naproxen 375 mg PO BID #20 tablet 07/20/19 Neomycin/Polymyx/Hc Otic Drops 4 drops OT TID #1 bottle 07/20/19 [Cortisporin Ear Susp] Amox/Clav 875/125 [Augmentin] 1 each PO Q12H 10 Days #20 tablet 08/24/19 Ciproflox/Dexameth Otic Drops 4 drops OT BID #1 bottle 08/24/19 [Ciprodex] Ciprofloxacin HCl [Cipro] 500 mg PO BID 10 Days #20 tablet 08/24/19 - Allergies Allergies/Adverse Reactions: Allergies Allergy/AdvReac Type Severity Reaction Status Date / Time No Known Drug Allergies Allergy Verified 08/24/19 05:33 PD ED PE NORMAL - Vitals Vital signs reviewed: Yes - General General: Alert and oriented X 3, No acute distress, Well developed/nourished - HEENT HEENT: Atraumatic, PERRL, EOMI, Moist mucous membranes, Pharynx benign, Dentition benign, Other (right tragus swelling of the right ear and the bryant and antitragus. discharge from the right external auditory canal. no swelling or tenderness of the mastoid process. no preauricular Lymphadenopathy. 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 The right ear external auditory canal I placed a week later and infused it with Ciprodex that should remain in for the next 48 hours and then should be removed after that. If the patient is unable to remove this she should return to the emergency department for removal of the right ear wick.She was given name and phone number of the local early childhood educator aide, [facility] early childhood educator aide in [place].Patient was also given a intramuscular dose of Rocephin here in the emergency department as well as a prescription for oral Augmentin and a prescription for oral ciprofloxacin. Augmentin is 875/125 that should be taken twice a day for the next 10 days and ciprofloxacin 500 mg should be taken twice a day for the next 10 days as well.Patient was given her first dose of ciprofloxacin here in the emergency department.) Departure - Departure Disposition: 01 Home, Self Care Clinical Impression: Otitis externa Qualifiers: Otitis externa type: other infective Chronicity: acute Laterality: right Qualified Code(s): H60.391 - Other infective otitis externa, right ear Otitis media Qualifiers: Otitis media type: suppurative Chronicity: acute Laterality: right Recurrence: non-recurrent Spontaneous tympanic membrane rupture: with spontaneous rupture Qualified Code(s): H66.011 - Acute suppurative otitis media with spontaneous rupture of ear drum, right ear Condition: Good Instructions: ED Otitis Media Acute Adult, ED Otitis Externa Follow-Up: YOUR,DOCTOR [Other] - Tomorrow Chas Andrade MD [Physician No Access] - Tomorrow Prescriptions: Amox/Clav 875/125 [Augmentin] 1 each PO Q12H 10 Days #20 tablet Ciproflox/Dexameth Otic Drops [Ciprodex] 4 drops OT BID #1 bottle Ciprofloxacin HCl [Cipro] 500 mg PO BID 10 Days #20 tablet Comments: CALL [phone] [employer] MACHINE OPERATOR TO SCHEDULE FOLLOW UP THIS WEEK, TAKE ANTIBIOTICS DIRECTED.
[2019-08-24 05:33] VITALS: BP 130/69
[2019-08-24] MEDS ORDERED: CIPROFLOXACIN 250 MG TABLET PO STA (05:36)
[2019-08-24] MEDS ORDERED: cefTRIAXone 1 GM VIAL IM STA (05:37)
[2019-08-24] MEDS ORDERED: LIDOCAINE 1% 2 ML VIAL MC ONE (05:37)
[2019-08-24] MEDS ORDERED: HYDROcod/ACETAM 5/325 MG TABLET PO STA (05:38)
[2019-08-24] MEDS ORDERED: ONDANSETRON ODT 4 MG TABLET TL STA (05:38)
[2019-08-24] MEDS ORDERED: CIPROFLOX/DEXAMETH OTIC DROPS ONE (05:59)
[2019-08-24] MEDS ORDERED: CIPROFLOX/DEXAMETH OTIC DROPS RIGHTEAR SCH (09:00)
== END 2019-08-24 06:11 | disposition home or self-care (01) ==
LOC: EDUNIT# → ED 05:25
DX: H60.391 Other infective otitis externa, right ear (principal); H66.011 Acute suppurative otitis media with spontaneous rupture of ear drum, right ear
CPT/HCPCS: 96372; 99283; 99284; A9270; Q0162

== ENCOUNTER 2019-09-06 15:55 | Emergency (ER) | payer MEDICAID ==
[2019-09-06] MEDS ORDERED: DEXAMETHASONE 10 MG/ML VIAL IVP STA (16:55)
[2019-09-06] MEDS ORDERED: SODIUM CHLORIDE 0.9% 1,000 ML IV ONE (16:55)
[2019-09-06] MEDS ORDERED: IPRATROPIUM/ALBUTEROL 3 ML NEB INH STA (16:57)
--- NOTE | 2019-09-06 16:58 | ED Physician Documentation ---
History of Present Illness - Stated complaint Stated Complaint: DIZZY/SOA/WEAKNESS - Chief complaint Chief Complaint: Neuro - History obtained from History obtained from: Patient - History of Present Illness Timing: How many days ago (2-3) - Additonal information Additional information: 34-year-old female has been recently treated for otitis externa and otitis media has finished her antibiotic and she is beginning to have some pain in her right upper molar she has had some dizziness and lightheadedness feels quite poorly and has developed a cough as well. She feels a bit short of breath. She is feeling that she is having a difficult time breathing through her nose. Review of Systems Constitutional: reports: Chills, Fatigue, Sweats. 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 : None HEENT: None Psych: Other Musculoskeletal: None Derm: None - Past Surgical History Past Surgical History: No - Present Medications Home Medications: Ambulatory Orders Medication Instructions Recorded Confirmed Amox/Clav 875/125 [Augmentin] 1 each PO Q12H #20 tablet 07/04/19 OLANZapine ODT [Zyprexa Odt] 5 mg TL DAILY #14 tablet 07/04/19 Doxycycline Monohydrate 100 mg PO BID #14 tablet 07/20/19 Naproxen 375 mg PO BID #20 tablet 07/20/19 Neomycin/Polymyx/Hc Otic Drops 4 drops OT TID #1 bottle 07/20/19 [Cortisporin Ear Susp] Amox/Clav 875/125 [Augmentin] 1 each PO Q12H 10 Days #20 tablet 08/24/19 Ciproflox/Dexameth Otic Drops 4 drops OT BID #1 bottle 08/24/19 [Ciprodex] Ciprofloxacin HCl [Cipro] 500 mg PO BID 10 Days #20 tablet 08/24/19 - Allergies Allergies/Adverse Reactions: Allergies Allergy/AdvReac Type Severity Reaction Status Date / Time No Known Drug Allergies Allergy Verified 09/06/19 16:11 - Social History Does the pt smoke?: Yes Smoking Status: Light tobacco smoker Does the pt drink ETOH?: No Does the pt have substance abuse?: Yes - Immunizations Immunizations are current?: No Immunizations: TDAP >10years/unknown - POLST Patient has POLST: No PD ED PE NORMAL - Vitals Vital signs reviewed: Yes - General General: Alert and oriented X 3, No acute distress, Well developed/nourished - HEENT HEENT: Atraumatic, PERRL, EOMI, Other (dry mucous membranes. The left TM is healing right is clear. ) - Neck Neck: Supple, no meningeal sign, No bony TTP - Cardiac Cardiac: RRR, No murmur - Respiratory Respiratory: No respiratory distress, Other (diminished breath sounds bilat ) - Abdomen Abdomen: Soft, Non tender - Back Back: No CVA TTP, No spinal TTP - Derm Derm: Normal color, Warm and dry, No rash - Extremities Extremities: No deformity, No edema - Neuro Neuro: Alert and oriented X 3, fashion consultant 2-12 intact, No motor deficit, No sensory deficit, Normal speech Eye Opening: Spontaneous Motor: Obeys Commands Verbal: Oriented GCS Score: 15 - Psych Psych: Other (mood is defeated and the affect is blunted. ) Results - Vitals Vitals: Vital Signs - 24 hr 09/06/19 09/06/19 09/06/19 16:12 17:20 17:56 Temperature 36.9 C 36.7 C Heart Rate 102 H 89 76 Respiratory 16 16 16 Rate Blood Pressure 115/65 119/76 O2 Saturation 100 100 Oxygen O2 Source Room air - Labs Labs: Laboratory Tests 09/06/19 09/06/19 09/06/19 17:05 17:05 17:05 WBC 11.1 H RBC 4.87 Hgb 14.6 Hct 44.8 MCV 92.0 MCH 30.0 MCHC 32.6 RDW 13.2 Plt Count 333 MPV 10.2 Neut # (Auto) 8.1 H Lymph # (Auto) 2.2 [place] # (Auto) 0.6 Eos # (Auto) 0.1 Baso # (Auto) 0.1 Absolute Nucleated RBC 0.00 Nucleated RBC % 0.0 Sodium 137 Potassium 3.9 Chloride 101 Carbon Dioxide 28 Anion Gap 8.0 BUN 13 Creatinine 0.7 Estimated GFR (MDRD) 96 Glucose 101 H Lactic Acid 1.1 Calcium 9.3 Total Bilirubin 0.4 AST 12 ALT 13 Alkaline Phosphatase 54 Total Protein 7.6 Albumin 4.3 Globulin 3.3 Albumin/Globulin Ratio 1.3 Lipase 30 Urine Color Urine Clarity Urine pH Ur Specific [place] Urine Protein Urine Glucose (UA) Urine Ketones Urine Occult Blood Urine Nitrite Urine Bilirubin Urine Urobilinogen Ur Leukocyte Esterase Ur Microscopic Review Urine Culture Comments Urine HCG, Qual 09/06/19 17:50 WBC RBC Hgb Hct MCV MCH MCHC RDW Plt Count MPV Neut # (Auto) Lymph # (Auto) [place] # (Auto) Eos # (Auto) Baso # (Auto) Absolute Nucleated RBC Nucleated RBC % Sodium Potassium Chloride Carbon Dioxide Anion Gap BUN Creatinine Estimated GFR (MDRD) Glucose Lactic Acid Calcium Total Bilirubin AST ALT Alkaline Phosphatase Total Protein Albumin Globulin Albumin/Globulin Ratio Lipase Urine Color YELLOW Urine Clarity CLEAR Urine pH 7.0 Ur Specific [place] 1.020 Urine Protein NEGATIVE Urine Glucose (UA) NEGATIVE Urine Ketones NEGATIVE Urine Occult Blood TRACE-INTA Urine Nitrite NEGATIVE Urine Bilirubin NEGATIVE Urine Urobilinogen 0.2 (NORMAL) Ur Leukocyte Esterase NEGATIVE Ur Microscopic Review NOT INDICATED Urine Culture Comments NOT INDICATED Urine HCG, Qual NEGATIVE - Rads (name of study) chest Radiology: Prelim report reviewed (Impression: Normal two-view chest radiography.), EMP read indepedently, See rad report Procedures - IVC sono (time) 1650 Bedside IVC sono: IVC measures (cm) (1.12), Dehydration (est >1 liter deficit.) PD MEDICAL DECISION MAKING - ED course Complexity details: reviewed old records, reviewed results, re-evaluated patient, considered differential, d/w patient ED course: 34-year-old female who has recently finished a course of antibiotic for otitis media appears to have had improvement in her infection she is dehydrated today and I believe most of her symptoms are related to this dehydration. She does feel improved after getting hydration here in the emergency department she also sounded like she had some wheezes in her lungs and we gave her a dose of dexamethasone and she finished about half a treatment and felt that it was not helping and making her breathing worse. The patient relates that when she takes antibiotic she seems to get dehydrated and certainly that was shown here today. We have treated her for dehydration I have indicated to her that if she feels like there is a new infection that is brewing, when it declares itself, we will be happy to initiate some treatment. Departure - Departure Disposition: 01 Home, Self Care Clinical Impression: Dehydration Condition: Stable Instructions: ED Dehydration Follow-Up: Daphne Zimmer ARNP [Primary Care Provider] -
[2019-09-06 17:12] LABS: BASOPHILS # (AUTO) 0.1 10^3/uL (0.0-0.1); BASOPHILS % (AUTO) 0.7 %; EOSINOPHILS # (AUTO) 0.1 10^3/uL (0.0-0.7); EOSINOPHILS % (AUTO) 0.6 %; HGB - HEMOGLOBIN 14.6 g/dL (12.0-16.0); LYMPHOCYTES # (AUTO) 2.2 10^3/uL (1.5-3.5); LYMPHOCYTES % (AUTO) 19.5 %; MEAN CORPUSCULAR HGB CONC 32.6 g/dL (32.0-36.0); MEAN PLATELET VOLUME 10.2 fL (7.9-10.8); MONOCYTES # (AUTO) 0.6 10^3/uL (0.0-1.0); MONOCYTES % (AUTO) 5.8 %; NEUTROPHILS # (AUTO) 8.1 10^3/uL (1.5-6.6); NEUTROPHILS % (AUTO) 72.9 %; PLT - PLATELET COUNT 333 10^3/uL (130-450); RED BLOOD COUNT 4.87 10^6/uL (4.20-5.40); RED CELL DISTRIBUTION WIDTH 13.2 % (12.0-15.0); WHITE BLOOD COUNT 11.1 x10^3/uL (4.8-10.8)
[2019-09-06 17:24] LABS: ALBUMIN 4.3 g/dL (3.2-5.5); ALBUMIN/GLOBULIN RATIO 1.3 (1.0-2.2); BILIRUBIN,TOTAL 0.4 mg/dL (0.2-1.0); CALCIUM 9.3 mg/dL (8.5-10.3); CREATININE 0.7 mg/dL (0.4-1.0); TOTAL PROTEIN 7.6 g/dL (6.7-8.2)
--- NOTE | 2019-09-06 17:48 | XRAY Report ---
Reason: cough, soa Procedure Date: 09/06/2019 Accession Number: [id number] / [id number] Procedure: XR - Chest 2 View X-Ray CPT Code: 90866 Final Report FULL RESULT: EXAM: CHEST RADIOGRAPHY EXAM DATE: 09/06/2019 05:18 PM. CLINICAL HISTORY: Cough, shortness of breath. COMPARISON: CHEST 2 VIEW PA/LAT 08/19/2015 4:32 AM. TECHNIQUE: 2 views. FINDINGS: Lungs/Pleura: No focal opacities evident. No pleural effusion. No pneumothorax. Normal volumes. Mediastinum: Heart and mediastinal contours are unremarkable. Other: None. IMPRESSION: Normal 2-view chest radiography. [facility]
[2019-09-06 17:57] LABS: BILIRUBIN,URINE NEGATIVE (NEGATIVE); GLUCOSE, URINE (UA) NEGATIVE (NEGATIVE); KETONES,URINE (UA) NEGATIVE (NEGATIVE); LEUKOCYTE ESTERASE, URINE NEGATIVE (NEGATIVE); NITRITE,URINE NEGATIVE (NEGATIVE); OCCULT BLOOD,URINE TRACE-INTA (NEGATIVE); PROTEIN,URINE NEGATIVE (NEGATIVE); UROBILINOGEN,URINE 0.2 (NORMAL) E.U./dL (NORMAL)
[2019-09-06 18:00] LABS: CLARITY,URINE CLEAR (CLEAR); HCG UR QUAL NEGATIVE
[2019-09-06 18:16] VITALS: BP 114/92
== END 2019-09-06 19:07 | disposition home or self-care (01) ==
LOC: ED 15:55
DX: E86.0 Dehydration (principal)
CPT/HCPCS: 36415; 71046; 80053; 81001; 81003; 81025; 83605; 83690; 85025; 87086; 94640; 96361; 96374; 99284

== ENCOUNTER 2019-10-12 11:31 | Emergency (ER) | payer MEDICAID ==
--- NOTE | 2019-10-12 11:43 | ED Physician Documentation ---
PD HPI MHE - Stated complaint Stated Complaint: MHE - History obtained from History obtained from: Patient, Police, Other (IOP/DM) - History of Present Illness Primary symptom: Anxiety, Out of meds (She states she ran out of her medicines and had not taken them for 2 days. She states they are available for pickup at [facility]. [facility] P check with the pharmacy and the medications have been available for 10 days so the patient has been without medicines for much longer than her stated 2 days.), Medical clearance (The patient has reportedly been having a normal behavior and scattered thought process. She was contacted by her IOP counselor who felt she was not managing well. Apparently was taking drugs and not taking her medicines. This was violation of her less restrictive ordinance. The DCR at the patient brought in by police for medical clearance for hospitalization.) Timing - onset: How many days ago (several days) Contributing factors: Substance abuse - drugs, Out of meds Similar symptoms before: Diagnosis (She reportedly has some schizoaffective disorder and also some history of drug use in the past.) Review of Systems Constitutional: denies: Fever, Chills Nose: denies: Rhinorrhea / runny nose, Congestion Throat: denies: Sore throat Respiratory: reports: Cough (mild nonproductive). denies: Dyspnea GI: denies: Nausea, Vomiting, Diarrhea Skin: denies: Abrasion (s), Laceration (s) Neurologic: denies: Headache, Head injury PD PAST MEDICAL HISTORY - Past Medical History Cardiovascular: None Respiratory: None Neuro: None Endocrine/Autoimmune: None GI: GERD, Ulcers HEEL BREASTER: None : None HEENT: None Psych: Other Musculoskeletal: None Derm: None - Past Surgical History Past Surgical History: No - Present Medications Home Medications: Ambulatory Orders Medication Instructions Recorded Confirmed Aripiprazole [Abilify] 15 mg PO 10/12/19 Lorazepam [Ativan] 1 mg 10/12/19 Lurasidone HCl [Latuda] 10/12/19 hydrOXYzine pamoate [Hydroxyzine 50 mg PO 10/12/19 Pamoate] - Allergies Allergies/Adverse Reactions: Allergies Allergy/AdvReac Type Severity Reaction Status Date / Time No Known Drug Allergies Allergy Verified 09/06/19 16:11 - Social History Does the pt smoke?: Yes Smoking Status: Light tobacco smoker Does the pt drink ETOH?: No Does the pt have substance abuse?: Yes - Immunizations Immunizations are current?: No Immunizations: TDAP >10years/unknown - POLST Patient has POLST: No PD ED PE NORMAL - Vitals Vital signs reviewed: Yes - General General: Alert and oriented X 3, Well developed/nourished - HEENT HEENT: Pharynx benign. No: Moist mucous membranes - Neck Neck: Supple, no meningeal sign, No adenopathy - Cardiac Cardiac: RRR, No murmur - Respiratory Respiratory: Clear bilaterally - Abdomen Abdomen: Soft, Non tender - Derm Derm: Normal color, Warm and dry - Neuro Neuro: Alert and oriented X 3, No motor deficit, Normal speech - Psych Psych: No: Normal affect (Somewhat anxious and with some pressured speech but not tangential. She is able answer questions appropriately though will be slightly unfocused at times. She does not feel that she has a problem and needs attention at this time. She initially was refusing blood tests and urine test but then agreed to it.) Results - Vitals Vitals: Vital Signs - 24 hr 10/12/19 10/12/19 10/12/19 11:52 11:56 12:54 Temperature 36.9 C 36.9 C Heart Rate 90 88 70 Respiratory 16 18 16 Rate Blood Pressure 114/93 H 114/90 H 112/67 O2 Saturation 100 100 98 10/12/19 14:51 Temperature 36.6 C Heart Rate 72 Respiratory 16 Rate Blood Pressure 122/70 O2 Saturation 98 Oxygen O2 Source Room air - EKG (time done) 13:44 Rate: Rate (enter#) (72) Rhythm: NSR [place]: Normal Intervals: Normal [place] QRS: Normal Ischemia: Normal ST segments. No: ST elevation c/w ischemia, ST depression - Labs Labs: Laboratory Tests 10/12/19 10/12/19 10/12/19 12:34 12:34 12:34 WBC 8.4 RBC 4.47 Hgb 13.5 Hct 41.6 MCV 93.1 MCH 30.2 MCHC 32.5 RDW 13.5 Plt Count 231 MPV 10.1 Neut # (Auto) 5.3 Lymph # (Auto) 2.1 [place] # (Auto) 0.8 Eos # (Auto) 0.1 Baso # (Auto) 0.1 Absolute Nucleated RBC 0.00 Nucleated RBC % 0.0 Sodium 132 L Potassium 3.8 Chloride 100 L Carbon Dioxide 28 Anion Gap 4.0 L BUN 11 Creatinine 0.5 Estimated GFR (MDRD) 141 Glucose 93 Calcium 8.4 L Total Bilirubin 1.5 H AST 17 ALT 14 Alkaline Phosphatase 55 Total Protein 7.1 Albumin 4.0 Globulin 3.1 Albumin/Globulin Ratio 1.3 Lipase 22 TSH 0.57 Urine Color Urine Clarity Urine pH Ur Specific [place] Urine Protein Urine Glucose (UA) Urine Ketones Urine Occult Blood Urine Nitrite Urine Bilirubin Urine Urobilinogen Ur Leukocyte Esterase Ur Microscopic Review Urine Culture Comments Urine HCG, Qual Salicylates < 6.0 Urine Opiates Screen Ur Oxycodone Screen Urine Methadone Screen Ur Propoxyphene Screen Acetaminophen < 10 L Ur Barbiturates Screen Ur Tricyclics Screen Ur Phencyclidine Scrn Ur Amphetamine Screen U Methamphetamines Scrn U Benzodiazepines Scrn Urine Cocaine Screen U Cannabinoids Screen Ethyl Alcohol < 5.0 10/12/19 10/12/19 13:15 13:15 WBC RBC Hgb Hct MCV MCH MCHC RDW Plt Count MPV Neut # (Auto) Lymph # (Auto) [place] # (Auto) Eos # (Auto) Baso # (Auto) Absolute Nucleated RBC Nucleated RBC % Sodium Potassium Chloride Carbon Dioxide Anion Gap BUN Creatinine Estimated GFR (MDRD) Glucose Calcium Total Bilirubin AST ALT Alkaline Phosphatase Total Protein Albumin Globulin Albumin/Globulin Ratio Lipase TSH Urine Color YELLOW Urine Clarity CLEAR Urine pH 7.0 Ur Specific [place] 1.010 Urine Protein NEGATIVE Urine Glucose (UA) NEGATIVE Urine Ketones NEGATIVE Urine Occult Blood NEGATIVE Urine Nitrite NEGATIVE Urine Bilirubin NEGATIVE Urine Urobilinogen 0.2 (NORMAL) Ur Leukocyte Esterase NEGATIVE Ur Microscopic Review NOT INDICATED Urine Culture Comments NOT INDICATED Urine HCG, Qual NEGATIVE Salicylates Urine Opiates Screen NEGATIVE Ur Oxycodone Screen NEGATIVE Urine Methadone Screen NEGATIVE Ur Propoxyphene Screen NEGATIVE Acetaminophen Ur Barbiturates Screen NEGATIVE Ur Tricyclics Screen NEGATIVE Ur Phencyclidine Scrn NEGATIVE Ur Amphetamine Screen POSITIVE H U Methamphetamines Scrn POSITIVE H U Benzodiazepines Scrn NEGATIVE Urine Cocaine Screen NEGATIVE U Cannabinoids Screen POSITIVE H Ethyl Alcohol - Rads (name of study) chest xray Radiology: Prelim report reviewed (no aCUTE PROCESS), See rad report PD MEDICAL DECISION MAKING - ED course Complexity details: considered differential (Patient was brought in a bit agitated and unfocused in police custody but was still being cooperative and following direction. She did not feel that she needed to be here for assessment. She initially refused blood in urine but then agreed to it. The [facility] Asuncion Serna came in to evaluate the patient and was going to hospitalized her based on her revoking of her LR O due to the not taking medications and also with drug use over the last several days at least.), d/w patient, d/w sap business intelligence consultant ([facility] Asuncion Serna who saw the patient in the ER and felt that she was at danger to herself with noncompliance and her behaviors and drug use. She arranged hospitalization involuntarily.) ED course: The patient seems well here with some agitation but that is improving and little bit of vagueness over the activity is over the last several days or so. Sounds likely should been doing some meth use and drug use and not taking her medi cines. She claims she was out of them and needed to pick them up at the pharmacy but unclear as to how long they have been available there. She is cleared medically without any acute illness visible. Departure - Departure Disposition: [facility] Psych Hosp/Unit DC/Xfer Clinical Impression: Abnormal behavior, Methamphetamine use, Noncompliance with medication regimen Schizoaffective disorder Qualifiers: Schizoaffective disorder type: unspecified Qualified Code(s): F25.9 - Schizoaffective disorder, unspecified Condition: Stable Record reviewed to determine appropriate education?: Yes
--- NOTE | 2019-10-12 12:36 | XRAY Report ---
Reason: mild cough Procedure Date: 10/12/2019 Accession Number: [id number] / [id number] Procedure: XR - Chest 1 View X-Ray CPT Code: 71467 Final Report FULL RESULT: EXAM: CHEST RADIOGRAPHY EXAM DATE: 10/12/2019 12:30 PM. CLINICAL HISTORY: Mild cough. COMPARISON: CHEST 2 VIEW 09/06/2019 5:02 PM CHEST 2 VIEW PA/LAT 08/19/2015 4:32 AM. TECHNIQUE: 1 view. FINDINGS: Lungs/Pleura: No focal opacities evident. No pleural effusion. No pneumothorax. Mediastinum: Within exam limitations, the cardiomediastinal contour is normal. Other: No acute osseous abnormality. IMPRESSION: Normal single view chest. No focal pulmonary consolidation. RADIA
[2019-10-12 12:42] LABS: BASOPHILS # (AUTO) 0.1 10^3/uL (0.0-0.1); BASOPHILS % (AUTO) 0.6 %; EOSINOPHILS # (AUTO) 0.1 10^3/uL (0.0-0.7); EOSINOPHILS % (AUTO) 1.4 %; HGB - HEMOGLOBIN 13.5 g/dL (12.0-16.0); LYMPHOCYTES # (AUTO) 2.1 10^3/uL (1.5-3.5); LYMPHOCYTES % (AUTO) 24.4 %; MEAN CORPUSCULAR HEMOGLOBIN 30.2 pg (27.0-31.0); MEAN CORPUSCULAR HGB CONC 32.5 g/dL (32.0-36.0); MEAN CORPUSCULAR VOLUME 93.1 fL (81.0-99.0); MEAN PLATELET VOLUME 10.1 fL (7.9-10.8); MONOCYTES # (AUTO) 0.8 10^3/uL (0.0-1.0); MONOCYTES % (AUTO) 9.9 %; NEUTROPHILS # (AUTO) 5.3 10^3/uL (1.5-6.6); NEUTROPHILS % (AUTO) 63.2 %; PLT - PLATELET COUNT 231 10^3/uL (130-450); RED BLOOD COUNT 4.47 10^6/uL (4.20-5.40); RED CELL DISTRIBUTION WIDTH 13.5 % (12.0-15.0); WHITE BLOOD COUNT 8.4 x10^3/uL (4.8-10.8)
[2019-10-12 12:59] LABS: ACETAMINOPHEN < 10 ug/mL (10-30); ALBUMIN/GLOBULIN RATIO 1.3 (1.0-2.2); ALKALINE PHOSPHATASE 55 IU/L (42-121); ALT ALANINE AMINOTRANSFERASE 14 IU/L (10-60); AST ASPARTATE AMINOTRANSFERASE 17 IU/L (10-42); BILIRUBIN,TOTAL 1.5 mg/dL (0.2-1.0); BUN - BLOOD UREA NITROGEN 11 mg/dL (6-20); CALCIUM 8.4 mg/dL (8.5-10.3); CARBON DIOXIDE - CO2 28 mmol/L (21-32); CHLORIDE 100 mmol/L (101-111); CREATININE 0.5 mg/dL (0.4-1.0); GLUCOSE 93 mg/dL (70-100); LIPASE 22 U/L (22-51); SALICYLATE < 6.0 mg/dL; SODIUM 132 mmol/L (135-145); TOTAL PROTEIN 7.1 g/dL (6.7-8.2)
[2019-10-12 13:25] LABS: MUDS CUTOFF CONCENTRATIONS CUTOFF CONC BELOW:
[2019-10-12 13:27] LABS: BILIRUBIN,URINE NEGATIVE (NEGATIVE); GLUCOSE, URINE (UA) NEGATIVE (NEGATIVE); KETONES,URINE (UA) NEGATIVE (NEGATIVE); LEUKOCYTE ESTERASE, URINE NEGATIVE (NEGATIVE); NITRITE,URINE NEGATIVE (NEGATIVE); OCCULT BLOOD,URINE NEGATIVE (NEGATIVE); PROTEIN,URINE NEGATIVE (NEGATIVE); UROBILINOGEN,URINE 0.2 (NORMAL) E.U./dL (NORMAL)
[2019-10-12 13:29] LABS: CLARITY,URINE CLEAR (CLEAR); HCG UR QUAL NEGATIVE
[2019-10-12] MEDS ORDERED: LORazepam 0.5 MG TABLET PO STA (13:37)
[2019-10-12] MEDS ORDERED: hydrOXYzine PAMOATE 25 MG CAPSULE PO STA (13:37)
[2019-10-12 13:38] LABS: AMPHETAMINE SCREEN,URINE POSITIVE (NEGATIVE)
[2019-10-12 13:39] LABS: BENZODIAZEPINES SCREEN, URINE NEGATIVE (NEGATIVE); COCAINE SCREEN URINE NEGATIVE (NEGATIVE); METHADONE SCREEN, URINE NEGATIVE (NEGATIVE); METHAMPHETAMINES SCREEN, URINE POSITIVE (NEGATIVE); OPIATE SCREEN, URINE NEGATIVE (NEGATIVE); OXYCODONE SCREEN, URINE NEGATIVE (NEGATIVE); PROPOXYPHENE SCREEN, URINE NEGATIVE (NEGATIVE); TRICYCLIC ANTIDEPRESSANT,URINE NEGATIVE (NEGATIVE)
[2019-10-12] MEDS ORDERED: OLANZapine ODT 5 MG TABLET TL ONE (16:37)
[2019-10-12 19:22] VITALS: BP 109/60
== END 2019-10-12 19:22 ==
LOC: ED 11:31
DX: Z00.8 Encounter for other general examination (principal); F15.90 Other stimulant use, unspecified, uncomplicated; F25.9 Schizoaffective disorder, unspecified; Z91.128 Patient's intentional underdosing of medication regimen for other reason; Z72.0 Tobacco use
CPT/HCPCS: 36415; 71045; 80053; 80306; 80307; 80320; 80329; 81003; 81025; 83690; 84443; 85025; 87635; 93005; 99283; 99285; A9270; 81001; 81599; 87086

== ENCOUNTER 2020-04-15 | Emergency (ER) | payer MEDICAID ==
--- NOTE | 2020-04-15 00:10 | ED Physician Documentation ---
History of Present Illness - Stated complaint Stated Complaint: VOMITING/COUGHING BLOOD - Chief complaint Chief Complaint: Abd Pain - History obtained from History obtained from: Patient - Additonal information Additional information: Patient is a 35-year-old female who admits to drinking alcohol heavily and using marijuana presents with vomiting. She thinks that she may have noticed some blood in her vomit denies taking any anticoagulants or antiplatelets. Denies any hematochezia or bright red blood per rectum. Denies any fevers chills or night sweats. Review of Systems Constitutional: reports: Reviewed and negative Eyes: reports: Reviewed and negative Ears: reports: Reviewed and negative Nose: reports: Reviewed and negative Throat: reports: Reviewed and negative Cardiac: reports: Reviewed and negative Respiratory: reports: Reviewed and negative GI: reports: Nausea, Vomiting : reports: Reviewed and negative Skin: reports: Reviewed and negative Musculoskeletal: reports: Reviewed and negative Neurologic: reports: Reviewed and negative Psychiatric: reports: Reviewed and negative Endocrine: reports: Reviewed and negative Immunocompromised: reports: Reviewed and negative PD PAST MEDICAL HISTORY - Past Medical History Cardiovascular: None Respiratory: None Neuro: None Endocrine/Autoimmune: None GI: GERD, Ulcers EX CHEF: None : None HEENT: None Psych: Other Musculoskeletal: None Derm: None - Past Surgical History Past Surgical History: No - Present Medications Home Medications: Ambulatory Orders Medication Instructions Recorded Confirmed Aripiprazole [Abilify] 15 mg PO 10/12/19 Lorazepam [Ativan] 1 mg 10/12/19 Lurasidone HCl [Latuda] 10/12/19 hydrOXYzine pamoate [Hydroxyzine 50 mg PO 10/12/19 Pamoate] Ondansetron Odt [Zofran Odt] 4 mg TL Q6H PRN #10 tablet 04/15/20 - Allergies Allergies/Adverse Reactions: Allergies Allergy/AdvReac Type Severity Reaction Status Date / Time No Known Drug Allergies Allergy Verified 04/15/20 00:06 - Social History Does the pt smoke?: Yes Smoking Status: Light tobacco smoker Does the pt drink ETOH?: No Does the pt have substance abuse?: Yes - Immunizations Immunizations are current?: No Immunizations: TDAP >10years/unknown - POLST Patient has POLST: No PD ED PE NORMAL - Vitals Vital signs reviewed: Yes - General General: Alert and oriented X 3, No acute distress, Well developed/nourished - HEENT HEENT: Atraumatic, PERRL, EOMI, Ears normal, Moist mucous membranes, Pharynx benign, Dentition benign - Neck Neck: Supple, no meningeal sign, No bony TTP, No JVD - Cardiac Cardiac: RRR, No murmur, Strong equal pulses - Respiratory Respiratory: No respiratory distress, Clear bilaterally - Abdomen Abdomen: Normal bowel sounds, Soft, Non tender, Non distended, No organomegaly - Female Female : Deferred - Rectal Rectal: Deferred - Back Back: No CVA TTP, No spinal TTP - Derm Derm: Normal color, Warm and dry, No rash - Extremities Extremities: No deformity, No tenderness to palpate, Normal ROM s pain, No edema, No calf tenderness / cord - Neuro Neuro: Alert and oriented X 3, dog raiser 2-12 intact, No motor deficit, No sensory deficit, Normal speech - Psych Psych: Normal mood, Normal affect Results - Vitals Vitals: Vital Signs - 24 hr 04/15/20 04/15/20 04/15/20 00:00 00:54 02:51 Temperature 37.3 C 37.3 C 37 C Heart Rate 85 85 72 Respiratory 18 18 Rate Blood Pressure 122/93 H 122/93 H 138/96 H O2 Saturation 96 100 04/15/20 04:41 Temperature Heart Rate 65 Respiratory 18 Rate Blood Pressure 126/80 O2 Saturation 95 Oxygen O2 Source Room air - Labs Labs: Laboratory Tests 04/15/20 04/15/20 04/15/20 00:50 00:50 00:50 WBC 17.1 H RBC 5.02 Hgb 15.5 Hct 45.3 MCV 90.2 MCH 30.9 MCHC 34.2 RDW 12.9 Plt Count 379 MPV 10.6 Neut # (Auto) 13.2 H Lymph # (Auto) 2.2 [place] # (Auto) 1.6 H Eos # (Auto) 0.0 Baso # (Auto) 0.1 Absolute Nucleated RBC 0.00 Band Neuts % (Manual) Not Reportable Abnorm Lymph % (Manual) Not Reportable Nucleated RBC % 0.0 Neutrophils # (Manual) Not Reportable Lymphocytes # (Manual) Not Reportable Monocytes # (Manual) Not Reportable Eosinophils # (Manual) Not Reportable Basophils # (Manual) Not Reportable Differential Comment MANUAL=AUTO DIFF Platelet Estimate NORMAL (130-450,000) RBC Morph Micro Appear NORMAL APPEARANCE PT 12.9 H INR 1.2 APTT 29.3 Sodium 140 Potassium 2.8 L Chloride 96 L Carbon Dioxide 26 Anion Gap 18.0 H BUN 17 Creatinine 0.9 Estimated GFR (MDRD) 71 L Glucose 164 H Calcium 10.0 Total Bilirubin 1.0 AST 19 ALT 18 Alkaline Phosphatase 52 Total Protein 8.9 H Albumin 5.4 Globulin 3.5 Albumin/Globulin Ratio 1.5 Lipase 25 Urine Color Urine Clarity Urine pH Ur Specific [place] Urine Protein Urine Glucose (UA) Urine Ketones Urine Occult Blood Urine Nitrite Urine Bilirubin Urine Urobilinogen Ur Leukocyte Esterase Ur Microscopic Review Urine Culture Comments Urine HCG, Qual Urine Opiates Screen Ur Oxycodone Screen Urine Methadone Screen Ur Propoxyphene Screen Ur Barbiturates Screen Ur Tricyclics Screen Ur Phencyclidine Scrn Ur Amphetamine Screen U Methamphetamines Scrn U Benzodiazepines Scrn Urine Cocaine Screen U Cannabinoids Screen Ethyl Alcohol < 5.0 04/15/20 04/15/20 04/15/20 02:54 03:08 03:08 WBC RBC Hgb Hct MCV MCH MCHC RDW Plt Count MPV Neut # (Auto) Lymph # (Auto) [place] # (Auto) Eos # (Auto) Baso # (Auto) Absolute Nucleated RBC Band Neuts % (Manual) Abnorm Lymph % (Manual) Nucleated RBC % Neutrophils # (Manual) Lymphocytes # (Manual) Monocytes # (Manual) Eosinophils # (Manual) Basophils # (Manual) Differential Comment Platelet Estimate RBC Morph Micro Appear PT INR APTT Sodium Potassium Chloride Carbon Dioxide Anion Gap BUN Creatinine Estimated GFR (MDRD) Glucose Calcium Total Bilirubin AST ALT Alkaline Phosphatase Total Protein Albumin Globulin Albumin/Globulin Ratio Lipase Urine Color YELLOW Urine Clarity CLEAR Urine pH 7.0 Ur Specific [place] >1.030 1.020 Urine Protein TRACE Urine Glucose (UA) NEGATIVE Urine Ketones TRACE Urine Occult Blood TRACE-INTA Urine Nitrite NEGATIVE Urine Bilirubin NEGATIVE Urine Urobilinogen 0.2 (NORMAL) Ur Leukocyte Esterase NEGATIVE Ur Microscopic Review NOT INDICATED Urine Culture Comments NOT INDICATED Urine HCG, Qual NEGATIVE Urine Opiates Screen NEGATIVE Ur Oxycodone Screen NEGATIVE Urine Methadone Screen NEGATIVE Ur Propoxyphene Screen NEGATIVE Ur Barbiturates Screen NEGATIVE Ur Tricyclics Screen NEGATIVE Ur Phencyclidine Scrn NEGATIVE Ur Amphetamine Screen NEGATIVE U Methamphetamines Scrn NEGATIVE U Benzodiazepines Scrn NEGATIVE Urine Cocaine Screen NEGATIVE U Cannabinoids Screen POSITIVE H Ethyl Alcohol PD MEDICAL DECISION MAKING - ED course Complexity details: reviewed old records, reviewed results, re-evaluated patient, considered differential, d/w patient, d/w family ED course: 35-year-old female presents to the emergency department with vomiting after drinking alcohol heavily yesterday and smoking marijuana. She also thinks she might of noticed some blood in her vomit. Denies any fever chills or night sweats. The patient here was noted to be dehydrated was given 2 L of IV fluids IV antiemetics and monitored for several hours she is well-appearing now she is tolerated p.o. challenge and would like to be discharged home patient counseled on decreasing or discontinuing her use of alcohol and marijuana. Departure - Departure Disposition: 01 Home, Self Care Clinical Impression: Dehydration Vomiting Qualifiers: Vomiting type: unspecified Vomiting Intractability: unspecified Nausea presence: unspecified Qualified Code(s): R11.10 - Vomiting, unspecified Condition: Stable Instructions: ED Nausea Vomiting Follow-Up: your, doctor [Other] Prescriptions: Ondansetron Odt [Zofran Odt] 4 mg TL Q6H PRN #10 tablet PRN Reason: Nausea / Vomiting Comments: Follow-up with your primary care provider this week. Decrease marijuana and alcohol use.
[2020-04-15] MEDS ORDERED: PROMETHAZINE INJ 25 MG in SODIUM CHLORIDE 0.9% 50 ML IV STA (00:20)
[2020-04-15] MEDS ORDERED: FAMOTIDINE 20 MG/2 ML SYRINGE IVP STA (00:20)
[2020-04-15] MEDS ORDERED: ONDANSETRON 4 MG/2 ML VIAL IVP STA (00:20)
[2020-04-15] MEDS ORDERED: SODIUM CHLORIDE 0.9% 1,000 ML IV STA ×2 (00:21→02:26)
[2020-04-15] MEDS ORDERED: PROMETHAZINE 25 MG/1 ML VIAL ONE (00:33)
[2020-04-15 01:04] LABS: BASOPHILS # (AUTO) 0.1 10^3/uL (0.0-0.1); BASOPHILS % (AUTO) 0.3 %; EOSINOPHILS % (AUTO) 0.1 %; HGB - HEMOGLOBIN 15.5 g/dL (12.0-16.0); LYMPHOCYTES # (AUTO) 2.2 10^3/uL (1.5-3.5); LYMPHOCYTES % (AUTO) 12.8 %; MEAN CORPUSCULAR HEMOGLOBIN 30.9 pg (27.0-31.0); MEAN CORPUSCULAR HGB CONC 34.2 g/dL (32.0-36.0); MEAN CORPUSCULAR VOLUME 90.2 fL (81.0-99.0); MEAN PLATELET VOLUME 10.6 fL (7.9-10.8); MONOCYTES # (AUTO) 1.6 10^3/uL (0.0-1.0); MONOCYTES % (AUTO) 9.1 %; NEUTROPHILS # (AUTO) 13.2 10^3/uL (1.5-6.6); NEUTROPHILS % (AUTO) 77.1 %; PLT - PLATELET COUNT 379 10^3/uL (130-450); RED BLOOD COUNT 5.02 10^6/uL (4.20-5.40); RED CELL DISTRIBUTION WIDTH 12.9 % (12.0-15.0); WHITE BLOOD COUNT 17.1 x10^3/uL (4.8-10.8)
[2020-04-15] MEDS ORDERED: PANTOPRAZOLE 40 MG VIAL IVP STA (01:09)
[2020-04-15 01:10] LABS: INR 1.2 (0.8-1.2); PT - PROTHROMBIN TIME 12.9 secs (9.9-12.6)
[2020-04-15 01:16] LABS: ALBUMIN 5.4 g/dL (3.2-5.5); ALBUMIN/GLOBULIN RATIO 1.5 (1.0-2.2); ALKALINE PHOSPHATASE 52 IU/L (42-121); ALT ALANINE AMINOTRANSFERASE 18 IU/L (10-60); AST ASPARTATE AMINOTRANSFERASE 19 IU/L (10-42); BUN - BLOOD UREA NITROGEN 17 mg/dL (6-20); CARBON DIOXIDE - CO2 26 mmol/L (21-32); CHLORIDE 96 mmol/L (101-111); CREATININE 0.9 mg/dL (0.4-1.0); GLUCOSE 164 mg/dL (70-100); LIPASE 25 U/L (22-51); SODIUM 140 mmol/L (135-145); TOTAL PROTEIN 8.9 g/dL (6.7-8.2)
[2020-04-15 01:17] LABS: PARTIAL THROMBOPLASTIN TIME 29.3 secs (24.9-33.3)
[2020-04-15] MEDS ORDERED: POTASSIUM CHLOR 20 MEQ/100 ML 20 MEQ/100 ML BAG IV ONE (01:19)
[2020-04-15 02:26] LABS: DIFFERENTIAL COMMENT MANUAL=AUTO DIFF; PLATELET ESTIMATE, MANUAL NORMAL (130-450,000) (NORMAL); RBC MORPHOLOGY (MULTIPLE) NORMAL APPEARANCE (NORMAL)
[2020-04-15 02:55] LABS: HCG UR QUAL NEGATIVE
[2020-04-15 03:14] LABS: MUDS CUTOFF CONCENTRATIONS CUTOFF CONC BELOW:
[2020-04-15 03:15] LABS: BILIRUBIN,URINE NEGATIVE (NEGATIVE); GLUCOSE, URINE (UA) NEGATIVE (NEGATIVE); KETONES,URINE (UA) TRACE mg/dL (NEGATIVE); LEUKOCYTE ESTERASE, URINE NEGATIVE (NEGATIVE); NITRITE,URINE NEGATIVE (NEGATIVE); OCCULT BLOOD,URINE TRACE-INTA (NEGATIVE); PROTEIN,URINE TRACE mg/dL (NEGATIVE); UROBILINOGEN,URINE 0.2 (NORMAL) E.U./dL (NORMAL)
[2020-04-15 03:17] LABS: CLARITY,URINE CLEAR (CLEAR)
[2020-04-15 03:26] LABS: AMPHETAMINE SCREEN,URINE NEGATIVE (NEGATIVE); BENZODIAZEPINES SCREEN, URINE NEGATIVE (NEGATIVE); COCAINE SCREEN URINE NEGATIVE (NEGATIVE); METHADONE SCREEN, URINE NEGATIVE (NEGATIVE); METHAMPHETAMINES SCREEN, URINE NEGATIVE (NEGATIVE); OPIATE SCREEN, URINE NEGATIVE (NEGATIVE); OXYCODONE SCREEN, URINE NEGATIVE (NEGATIVE); PROPOXYPHENE SCREEN, URINE NEGATIVE (NEGATIVE); TRICYCLIC ANTIDEPRESSANT,URINE NEGATIVE (NEGATIVE)
[2020-04-15 04:42] VITALS: BP 126/80
== END 2020-04-15 04:56 | disposition home or self-care (01) ==
LOC: ED
DX: R11.2 Nausea with vomiting, unspecified (principal); E86.0 Dehydration; F17.200 Nicotine dependence, unspecified, uncomplicated; F10.10 Alcohol abuse, uncomplicated
CPT/HCPCS: 36415; 80053; 80306; 80320; 81003; 81025; 83690; 85025; 85610; 85730; 96361; 96365; 96366; 96367; 96375; 99283; 99285; J7040; 81001; 87086

== ENCOUNTER 2020-04-16 23:43 | Emergency (ER) | payer MEDICAID ==
--- NOTE | 2020-04-17 00:12 | ED Physician Documentation ---
PD HPI ABD PAIN - Stated complaint Stated Complaint: ABD PX - Chief complaint Chief Complaint: Abd Pain - History obtained from History obtained from: Patient - History of Present Illness Timing - onset: How many days ago (2-3) Timing - details: Abrupt onset, Waxing and waning Pain level now: 3 Quality: Cramping Location: Epigastric Radiation: Other (no radiation) Improved by: Other (nothing) Worsened by: Eating Associated symptoms: Nausea, Vomiting, Hematemesis. No: Fever, Diarrhea, Constipation Recently seen: Emergency Dept - Additional information Additional information: T+R from this ED yesterday for same symptoms, returns due to recurrence of symptoms. c/o nausea, vomiting, and epigastric burning/cramping. She had improvement after IV fluids, zofran, protonix, pepcid, and phenergan. She says she did not fill the prescription antinauseant because she got to the store after the pharmacy had closed. She says she has noticed some blood in her vomitus but no clots. Review of Systems Constitutional: denies: Fever, Chills, Sweats Cardiac: reports: Reviewed and negative Respiratory: reports: Reviewed and negative GI: reports: Abdominal Pain, Nausea, Vomiting, Hematemesis. denies: Constipation, Diarrhea : denies: Now [place] PD PAST MEDICAL HISTORY - Past Medical History Past Medical History: Yes Cardiovascular: None Respiratory: None Neuro: None Endocrine/Autoimmune: None GI: GERD, Ulcers MEDICAL CLINIC MANAGER: None : None HEENT: None Psych: Other Musculoskeletal: None Derm: None - Past Surgical History Past Surgical History: No - Present Medications Home Medications: Ambulatory Orders Medication Instructions Recorded Confirmed Aripiprazole [Abilify] 15 mg PO 10/12/19 Lorazepam [Ativan] 1 mg 10/12/19 Lurasidone HCl [Latuda] 10/12/19 hydrOXYzine pamoate [Hydroxyzine 50 mg PO 10/12/19 Pamoate] Ondansetron Odt [Zofran Odt] 4 mg TL Q6H PRN #10 tablet 04/15/20 Potassium Chloride [K-Dur] 20 meq PO BIDWM #8 tablet 04/17/20 - Allergies Allergies/Adverse Reactions: Allergies Allergy/AdvReac Type Severity Reaction Status Date / Time No Known Drug Allergies Allergy Verified 04/16/20 23:52 - Social History Does the pt smoke?: Yes Smoking Status: Current every day smoker Does the pt drink ETOH?: No Does the pt have substance abuse?: Yes - Immunizations Immunizations are current?: No Immunizations: TDAP >10years/unknown - POLST Patient has POLST: No PD ED PE NORMAL - Vitals Vital signs reviewed: Yes - General General: Alert and oriented X 3, No acute distress, Well developed/nourished - Neck Neck: Supple, no meningeal sign - Cardiac Cardiac: RRR, No murmur - Respiratory Respiratory: No respiratory distress, Clear bilaterally - Abdomen Abdomen: Normal bowel sounds, Soft, Non tender, Non distended - Back Back: No CVA TTP - Derm Derm: Normal color, Warm and dry Results - Vitals Vitals: Vital Signs - 24 hr 04/16/20 04/16/20 04/17/20 23:45 23:53 02:31 Temperature 36.4 C L 36.4 C L 37.1 C Heart Rate 70 70 63 Respiratory 18 18 18 Rate Blood Pressure 147/76 H 147/76 H 136/76 H O2 Saturation 95 95 96 04/17/20 04:25 Temperature 37.3 C Heart Rate 81 Respiratory 20 Rate Blood Pressure 132/92 H O2 Saturation 97 Oxygen O2 Source Room air - Labs Labs: Laboratory Tests 04/17/20 04/17/20 04/17/20 00:51 00:51 01:57 WBC 14.6 H RBC 4.89 Hgb 15.2 Hct 43.7 MCV 89.4 MCH 31.1 H MCHC 34.8 RDW 12.2 Plt Count 313 MPV 10.5 Neut # (Auto) 11.2 H Lymph # (Auto) 1.9 [place] # (Auto) 1.3 H Eos # (Auto) 0.0 Baso # (Auto) 0.1 Absolute Nucleated RBC 0.00 Nucleated RBC % 0.0 Sodium 138 Potassium 2.6 L Chloride 99 L Carbon Dioxide 26 Anion Gap 13.0 BUN 15 Creatinine 0.8 Estimated GFR (MDRD) 82 L Glucose 142 H Calcium 9.4 Total Bilirubin 1.4 H AST 17 ALT 21 Alkaline Phosphatase 50 Total Protein 8.3 H Albumin 5.1 Globulin 3.2 Albumin/Globulin Ratio 1.6 Lipase 24 Urine Color YELLOW Urine Clarity CLEAR Urine pH 7.0 Ur Specific [place] 1.025 Urine Protein NEGATIVE Urine Glucose (UA) NEGATIVE Urine Ketones 15 H Urine Occult Blood NEGATIVE Urine Nitrite NEGATIVE Urine Bilirubin NEGATIVE Urine Urobilinogen 0.2 (NORMAL) Ur Leukocyte Esterase NEGATIVE Ur Microscopic Review NOT INDICATED Urine Culture Comments NOT INDICATED Urine HCG, Qual NEGATIVE Urine Opiates Screen NEGATIVE Ur Oxycodone Screen NEGATIVE Urine Methadone Screen NEGATIVE Ur Propoxyphene Screen NEGATIVE Ur Barbiturates Screen NEGATIVE Ur Tricyclics Screen NEGATIVE Ur Phencyclidine Scrn NEGATIVE Ur Amphetamine Screen NEGATIVE U Methamphetamines Scrn NEGATIVE U Benzodiazepines Scrn NEGATIVE Urine Cocaine Screen NEGATIVE U Cannabinoids Screen POSITIVE H Ethyl Alcohol < 5.0 PD MEDICAL DECISION MAKING - ED course Complexity details: reviewed old records, reviewed results, re-evaluated patient, considered differential, d/w patient ED course: leukocytosis improved compared to yesterday's visit, although her hypokalemia is worse but should be manageable in outpatient setting after IV and PO potassium in ED. She reported significant improvement in symptoms after IV fluids, phenergan, and protonix, and was able to tolerate PO. She did not have any hematemsis during ED stay although she was vomiting early in stay. Her abdominal exam was nontender initially and on reevaluation prior to discharge. Departure - Departure Disposition: 01 Home, Self Care Clinical Impression: Hypokalemia Vomiting Qualifiers: Vomiting type: unspecified Vomiting Intractability: non-intractable Nausea presence: with nausea Qualified Code(s): R11.2 - Nausea with vomiting, unspecified Condition: Good Instructions: ED Potassium Deficiency, ED Nausea Vomiting Prescriptions: Potassium Chloride [K-Dur] 20 meq PO BIDWM #8 tablet Discharge Date/Time: 04/17/20 04:30
[2020-04-17] MEDS ORDERED: PANTOPRAZOLE 40 MG VIAL IVP STA (00:21)
[2020-04-17] MEDS ORDERED: PROMETHAZINE INJ 25 MG in SODIUM CHLORIDE 0.9% 50 ML IV STA (00:21)
[2020-04-17] MEDS ORDERED: SODIUM CHLORIDE 0.9% 1,000 ML IV STA (00:21)
[2020-04-17] MEDS ORDERED: PROMETHAZINE 25 MG/1 ML VIAL ONE (00:34)
[2020-04-17 01:02] LABS: BASOPHILS # (AUTO) 0.1 10^3/uL (0.0-0.1); BASOPHILS % (AUTO) 0.4 %; EOSINOPHILS % (AUTO) 0.1 %; HGB - HEMOGLOBIN 15.2 g/dL (12.0-16.0); LYMPHOCYTES # (AUTO) 1.9 10^3/uL (1.5-3.5); LYMPHOCYTES % (AUTO) 13.1 %; MEAN CORPUSCULAR HEMOGLOBIN 31.1 pg (27.0-31.0); MEAN CORPUSCULAR HGB CONC 34.8 g/dL (32.0-36.0); MEAN CORPUSCULAR VOLUME 89.4 fL (81.0-99.0); MEAN PLATELET VOLUME 10.5 fL (7.9-10.8); MONOCYTES # (AUTO) 1.3 10^3/uL (0.0-1.0); MONOCYTES % (AUTO) 8.9 %; NEUTROPHILS # (AUTO) 11.2 10^3/uL (1.5-6.6); NEUTROPHILS % (AUTO) 76.9 %; PLT - PLATELET COUNT 313 10^3/uL (130-450); RED BLOOD COUNT 4.89 10^6/uL (4.20-5.40); RED CELL DISTRIBUTION WIDTH 12.2 % (12.0-15.0); WHITE BLOOD COUNT 14.6 x10^3/uL (4.8-10.8)
[2020-04-17 01:14] LABS: ALBUMIN 5.1 g/dL (3.2-5.5); ALBUMIN/GLOBULIN RATIO 1.6 (1.0-2.2); ALKALINE PHOSPHATASE 50 IU/L (42-121); ALT ALANINE AMINOTRANSFERASE 21 IU/L (10-60); AST ASPARTATE AMINOTRANSFERASE 17 IU/L (10-42); BILIRUBIN,TOTAL 1.4 mg/dL (0.2-1.0); BUN - BLOOD UREA NITROGEN 15 mg/dL (6-20); CALCIUM 9.4 mg/dL (8.5-10.3); CARBON DIOXIDE - CO2 26 mmol/L (21-32); CHLORIDE 99 mmol/L (101-111); CREATININE 0.8 mg/dL (0.4-1.0); GLUCOSE 142 mg/dL (70-100); LIPASE 24 U/L (22-51); SODIUM 138 mmol/L (135-145); TOTAL PROTEIN 8.3 g/dL (6.7-8.2)
[2020-04-17 02:00] LABS: MUDS CUTOFF CONCENTRATIONS CUTOFF CONC BELOW:
[2020-04-17 02:04] LABS: BILIRUBIN,URINE NEGATIVE (NEGATIVE); GLUCOSE, URINE (UA) NEGATIVE (NEGATIVE); KETONES,URINE (UA) 15 mg/dL (NEGATIVE); LEUKOCYTE ESTERASE, URINE NEGATIVE (NEGATIVE); NITRITE,URINE NEGATIVE (NEGATIVE); OCCULT BLOOD,URINE NEGATIVE (NEGATIVE); PROTEIN,URINE NEGATIVE (NEGATIVE); UROBILINOGEN,URINE 0.2 (NORMAL) E.U./dL (NORMAL)
[2020-04-17 02:06] LABS: CLARITY,URINE CLEAR (CLEAR); HCG UR QUAL NEGATIVE
[2020-04-17 02:16] LABS: AMPHETAMINE SCREEN,URINE NEGATIVE (NEGATIVE); BENZODIAZEPINES SCREEN, URINE NEGATIVE (NEGATIVE); COCAINE SCREEN URINE NEGATIVE (NEGATIVE); METHADONE SCREEN, URINE NEGATIVE (NEGATIVE); METHAMPHETAMINES SCREEN, URINE NEGATIVE (NEGATIVE); OPIATE SCREEN, URINE NEGATIVE (NEGATIVE); OXYCODONE SCREEN, URINE NEGATIVE (NEGATIVE); PROPOXYPHENE SCREEN, URINE NEGATIVE (NEGATIVE); TRICYCLIC ANTIDEPRESSANT,URINE NEGATIVE (NEGATIVE)
[2020-04-17] MEDS ORDERED: POTASSIUM CHLORIDE 20 MEQ TABLET PO STA (02:35)
[2020-04-17] MEDS ORDERED: POTASSIUM CHLOR 10 MEQ/100 ML 10 MEQ/100 ML BAG IV STA (02:35)
[2020-04-17 04:30] VITALS: BP 132/92
== END 2020-04-17 04:30 | disposition home or self-care (01) ==
LOC: ED 23:43
DX: E87.6 Hypokalemia (principal); R11.2 Nausea with vomiting, unspecified; F17.200 Nicotine dependence, unspecified, uncomplicated
CPT/HCPCS: 36415; 80053; 80306; 80320; 81003; 81025; 83690; 85025; 96365; 96366; 96367; 96375; 99284; A9270; J7040; 81001; 87086

== ENCOUNTER 2020-07-31 23:22 | Outpatient (CLI) | payer MEDICAID | END 2020-07-31 23:23 | disposition critical access hospital (66) | LOC: EMS 23:22 | PROVIDERS: ATTEND Surgery | DX: R46.89 Other symptoms and signs involving appearance and behavior (principal) | CPT/HCPCS: A0425; A0429; A0999 ==

== ENCOUNTER 2020-07-31 23:38 | Emergency (ER) | payer MEDICAID ==
[2020-08-01] MEDS ORDERED: ACETAMINOPHEN 325 MG TABLET PO STA (00:03)
[2020-08-01] MEDS: OLANZapine ODT 5 MG TABLET TL ONE ×2 (00:06→00:23)
[2020-08-01] MEDS ORDERED: OLANZapine 10 MG VIAL IM STA ×2 (00:13)
[2020-08-01 00:59] LABS: BASOPHILS # (AUTO) 0.1 10^3/uL (0.0-0.1); BASOPHILS % (AUTO) 0.6 %; EOSINOPHILS % (AUTO) 0.2 %; HGB - HEMOGLOBIN 13.7 g/dL (12.0-16.0); LYMPHOCYTES # (AUTO) 2.6 10^3/uL (1.5-3.5); LYMPHOCYTES % (AUTO) 20.2 %; MEAN CORPUSCULAR HEMOGLOBIN 30.7 pg (27.0-31.0); MEAN CORPUSCULAR HGB CONC 33.8 g/dL (32.0-36.0); MEAN CORPUSCULAR VOLUME 90.8 fL (81.0-99.0); MEAN PLATELET VOLUME 10.1 fL (7.9-10.8); MONOCYTES # (AUTO) 1.2 10^3/uL (0.0-1.0); MONOCYTES % (AUTO) 9.8 %; NEUTROPHILS # (AUTO) 8.8 10^3/uL (1.5-6.6); NEUTROPHILS % (AUTO) 68.9 %; PLT - PLATELET COUNT 329 10^3/uL (130-450); RED BLOOD COUNT 4.46 10^6/uL (4.20-5.40); RED CELL DISTRIBUTION WIDTH 12.4 % (12.0-15.0); WHITE BLOOD COUNT 12.7 x10^3/uL (4.8-10.8)
[2020-08-01 01:13] LABS: ACETAMINOPHEN 17 ug/mL (10-30); ALBUMIN 4.8 g/dL (3.2-5.5); ALBUMIN/GLOBULIN RATIO 1.5 (1.0-2.2); ALKALINE PHOSPHATASE 59 IU/L (42-121); ALT ALANINE AMINOTRANSFERASE 17 IU/L (10-60); AST ASPARTATE AMINOTRANSFERASE 21 IU/L (10-42); BILIRUBIN,TOTAL 1.4 mg/dL (0.2-1.0); BUN - BLOOD UREA NITROGEN 16 mg/dL (6-20); CALCIUM 9.5 mg/dL (8.5-10.3); CARBON DIOXIDE - CO2 23 mmol/L (21-32); CHLORIDE 100 mmol/L (101-111); CREATININE 0.8 mg/dL (0.4-1.0); GLUCOSE 129 mg/dL (70-100); LIPASE 19 U/L (22-51); SALICYLATE < 6.0 mg/dL; TOTAL PROTEIN 7.9 g/dL (6.7-8.2)
[2020-08-01 01:48] LABS: HCG,QUALITATIVE BLOOD NEGATIVE
--- NOTE | 2020-08-01 01:58 | ED Physician Documentation ---
History of Present Illness - Stated complaint Stated Complaint: MHE - Chief complaint Chief Complaint: MHE - History obtained from History obtained from: Patient - Additonal information Additional information: 35-year-old woman with history of schizophrenia, noncompliant with meds, and multidrug abuse presents for psychiatric evaluation this evening. She was brought in by EMS after her boyfriend called 911. On arrival, she was speaking quickly, complaining of diffuse body aches, difficult to obtain history 2/2 agitated delirium. A large kitchen knife was found in her belongings and confiscated. denied drug use other than MJ. She repeatedly said, "I am having an " and c/o abdominal pain, then would quickly change subjects, apparently speaking to internal stimuli. She also was able to show us some swelling and erythema on her left foot but could not explain what happened. Patient was partly re-directable and initially consented to oral zyprexa but then would not take it. She also refused bloodwork, refused to provide urine sample, repeatedly attempted to leave her room and walk on the injured foot. 5mg IM zyprexa was administered with improvement in mental status. she requested her phone. After calling and speaking with a relative she is now resting comfortably in bed in [facility]. 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 : None HEENT: None Psych: Other Musculoskeletal: None Derm: None - Past Surgical History Past Surgical History: No - Present Medications Home Medications: Ambulatory Orders Medication Instructions Recorded Confirmed Acetaminophen [Acetaminophen Extra 500 mg PO Q6HR PRN 07/31/20 07/31/20 Strength] Amox/Clav 875/125 [Augmentin] 1 each PO Q12H 07/31/20 07/31/20 Ibuprofen [Motrin] 800 mg PO Q8H PRN 07/31/20 07/31/20 - Allergies Allergies/Adverse Reactions: Allergies Allergy/AdvReac Type Severity Reaction Status Date / Time No Known Drug Allergies Allergy Verified 07/31/20 23:55 - Social History Does the pt smoke?: Yes Smoking Status: Current every day smoker Does the pt drink ETOH?: No Does the pt have substance abuse?: Yes - Immunizations Immunizations are current?: No Immunizations: TDAP >10years/unknown - POLST Patient has POLST: No PD ED PE NORMAL - Vitals Vital signs reviewed: Yes - General General: Other (Alert, unkempt appearing, in NAD) - HEENT HEENT: Atraumatic, PERRL, EOMI, Moist mucous membranes - Neck Neck: Supple, no meningeal sign - Cardiac Cardiac: RRR - Respiratory Respiratory: No respiratory distress, Clear bilaterally - Abdomen Abdomen: Soft, Non tender, Non distended - Female Female : Other (unable to complete exam 2/2 patient uncooperative) - Rectal Rectal: Deferred - Derm Derm: Normal color - Extremities Extremities: No deformity, Other (R foot with erythema and swelling to dorsal aspect. tender with rom.) - Neuro Neuro: Other (alert, agitated delirium) - Psych Psych: Other (agitated delirium) Results - Vitals Vitals: Vital Signs - 24 hr 07/31/20 08/01/20 08/01/20 23:52 00:30 00:45 Temperature 36.6 C Heart Rate 117 H 121 H 118 H Respiratory 20 20 18 Rate Blood Pressure 128/96 H 139/77 H 110/76 O2 Saturation 97 99 99 08/01/20 08/01/20 08/01/20 00:58 01:28 01:58 Temperature Heart Rate 106 H 94 85 Respiratory 16 18 16 Rate Blood Pressure 120/87 H 110/62 108/60 O2 Saturation 100 95 96 08/01/20 08/01/20 08/01/20 02:37 03:00 03:30 Temperature Heart Rate 96 95 91 Respiratory 16 14 16 Rate Blood Pressure 110/62 111/64 113/68 O2 Saturation 96 98 97 08/01/20 08/01/20 08/01/20 04:00 05:00 05:37 Temperature 36.9 C Heart Rate 91 81 87 Respiratory 16 17 16 Rate Blood Pressure 115/71 111/60 113/64 O2 Saturation 97 98 97 Oxygen O2 Source Room air - Labs Labs: Laboratory Tests 08/01/20 08/01/20 08/01/20 00:53 00:53 00:53 WBC 12.7 H RBC 4.46 Hgb 13.7 Hct 40.5 MCV 90.8 MCH 30.7 MCHC 33.8 RDW 12.4 Plt Count 329 MPV 10.1 Neut # (Auto) 8.8 H Lymph # (Auto) 2.6 [place] # (Auto) 1.2 H Eos # (Auto) 0.0 Baso # (Auto) 0.1 Absolute Nucleated RBC 0.00 Nucleated RBC % 0.0 Sodium 136 Potassium 3.6 Chloride 100 L Carbon Dioxide 23 Anion Gap 13.0 BUN 16 Creatinine 0.8 Estimated GFR (MDRD) 82 L Glucose 129 H Calcium 9.5 Total Bilirubin 1.4 H AST 21 ALT 17 Alkaline Phosphatase 59 Total Protein 7.9 Albumin 4.8 Globulin 3.1 Albumin/Globulin Ratio 1.5 Lipase 19 L TSH 2.69 Serum HCG, Qual Salicylates < 6.0 Acetaminophen 17 Ethyl Alcohol < 5.0 08/01/20 00:53 WBC RBC Hgb Hct MCV MCH MCHC RDW Plt Count MPV Neut # (Auto) Lymph # (Auto) [place] # (Auto) Eos # (Auto) Baso # (Auto) Absolute Nucleated RBC Nucleated RBC % Sodium Potassium Chloride Carbon Dioxide Anion Gap BUN Creatinine Estimated GFR (MDRD) Glucose Calcium Total Bilirubin AST ALT Alkaline Phosphatase Total Protein Albumin Globulin Albumin/Globulin Ratio Lipase TSH Serum HCG, Qual NEGATIVE Salicylates Acetaminophen Ethyl Alcohol PD MEDICAL DECISION MAKING - ED course ED course: 35-year-old woman with history of schizophrenia, noncompliant with meds presents with acute psychotic episode that appears to have improved with IM Zyprexa. Also with right ankle swelling and erythema without signs of fracture on x-ray. We will continue to observe. Patient will likely need a splint and crutches, but we will have to evaluate her in the morning for compliance. Patient in [facility]. endorsed to Dr. Silverman for further evaluation, management, and care.
[2020-08-01 05:38] VITALS: BP 113/64
[2020-08-01] MEDS ORDERED: METOCLOPRAMIDE 10 MG TABLET PO STA (06:13)
[2020-08-01 07:07] LABS: MUDS CUTOFF CONCENTRATIONS CUTOFF CONC BELOW:
[2020-08-01 07:10] LABS: BILIRUBIN,URINE NEGATIVE (NEGATIVE); GLUCOSE, URINE (UA) NEGATIVE (NEGATIVE); KETONES,URINE (UA) NEGATIVE (NEGATIVE); LEUKOCYTE ESTERASE, URINE NEGATIVE (NEGATIVE); NITRITE,URINE NEGATIVE (NEGATIVE); OCCULT BLOOD,URINE NEGATIVE (NEGATIVE); PROTEIN,URINE NEGATIVE (NEGATIVE); UROBILINOGEN,URINE 0.2 (NORMAL) E.U./dL (NORMAL)
[2020-08-01 07:13] LABS: CLARITY,URINE CLEAR (CLEAR)
--- NOTE | 2020-08-01 07:16 | ED Physician Documentation ---
ED Addendum - Addendum Addendum: 08/01/20 07:[address] Mireles at shift change. Patient was reassessed. Doing much better after Zyprexa overnight. Now she is alert and oriented. Only complaint is redness and warmth of the right foot. She has a focal area of cellulitis on the top of the foot. Nothing to suggest a necrotizing infection. She has her Latuda and will take it as prescribed she says. Denies SI or HI. Diagnosis: 1. Psychosis 2. Right foot cellulitis Disposition: Discharged home Condition: Stable
[2020-08-01 07:19] LABS: AMPHETAMINE SCREEN,URINE POSITIVE (NEGATIVE); BENZODIAZEPINES SCREEN, URINE NEGATIVE (NEGATIVE); COCAINE SCREEN URINE NEGATIVE (NEGATIVE); METHADONE SCREEN, URINE NEGATIVE (NEGATIVE); METHAMPHETAMINES SCREEN, URINE POSITIVE (NEGATIVE); OPIATE SCREEN, URINE NEGATIVE (NEGATIVE); OXYCODONE SCREEN, URINE NEGATIVE (NEGATIVE); PROPOXYPHENE SCREEN, URINE NEGATIVE (NEGATIVE); TRICYCLIC ANTIDEPRESSANT,URINE NEGATIVE (NEGATIVE)
--- NOTE | 2020-08-01 08:10 | XRAY Report ---
PROCEDURE: Ankle 3 View RT INDICATIONS: swelling foot, ankle TECHNIQUE: 3 views of the ankle were acquired. COMPARISON: None. FINDINGS: Bones: No acute fractures or dislocations. Ankle mortise is normally aligned. No suspicious bony l esions. Soft tissues: Soft tissue edema is seen at the lateral aspect of the foot. Nonspecific calcifications are seen in the plantar heel fat pad. IMPRESSION: No acute osseous abnormality. If there is clinical concern or persistent symptoms, furth er evaluation with repeat radiographs or advanced imaging (e.g. CT, MRI) may be obtained for further evaluation. There is no significant discrepancy when compared with the overnight teleradiology report. Reviewed by: Demond Sweeney MD on 08/01/2020 8:08 AM PST Approved by: Demond Sweeney MD on 08/01/2020 8:08 AM [facility] Station ID: [id number]
--- NOTE | 2020-08-01 08:10 | XRAY Report ---
PROCEDURE: Foot 3 View RT INDICATIONS: swelling, erythema TECHNIQUE: 3 views of the foot were acquired. COMPARISON: None. FINDINGS: Bones: No acute fractures or dislocations. No suspicious bony lesions. Soft tissues: Soft tissue edema is seen at the dorsal and lateral aspect of the foot. Nonspecific joseph cifications are seen in the plantar heel fat pad. IMPRESSION: No acute osseous abnormality. If there is clinical concern or persistent symptoms, further evaluation with repeat radiographs or advanced imaging (e.g. CT, MRI) may be obtained for further evaluation. There is no significant discrepancy when compared with the overnight teleradiology report. Reviewed by: Demond Sweeney MD on 08/01/2020 8:09 AM [facility] Approved by: Demond Sweeney MD on 08/01/2020 8:09 AM [facility] Station ID: [id number]
== END 2020-08-01 07:23 | disposition home or self-care (01) ==
LOC: EDUNIT# → ED 23:38
DX: L03.115 Cellulitis of right lower limb (principal); F29 Unspecified psychosis not due to a substance or known physiological condition; F20.9 Schizophrenia, unspecified; Z91.14 Patient's other noncompliance with medication regimen; F17.200 Nicotine dependence, unspecified, uncomplicated
CPT/HCPCS: 36415; 73610; 73630; 80053; 80306; 80307; 80320; 80329; 81003; 83690; 84443; 84703; 85025; 96372; 99285; A9270; 81001

== ENCOUNTER 2021-02-17 11:17 | Emergency (ER) | payer MEDICAID ==
[2021-02-17 11:33] VITALS: BP 135/82
[2021-02-17 11:38] LABS: MUDS CUTOFF CONCENTRATIONS CUTOFF CONC BELOW:
[2021-02-17 11:46] LABS: GLUCOSE, URINE (UA) NEGATIVE (NEGATIVE); KETONES,URINE (UA) NEGATIVE (NEGATIVE); LEUKOCYTE ESTERASE, URINE NEGATIVE (NEGATIVE); NITRITE,URINE NEGATIVE (NEGATIVE); OCCULT BLOOD,URINE NEGATIVE (NEGATIVE); PROTEIN,URINE TRACE mg/dL (NEGATIVE); UROBILINOGEN,URINE 1 (NORMAL) E.U./dL (NORMAL)
[2021-02-17 11:51] LABS: BILIRUBIN,URINE NEGATIVE (NEGATIVE); CLARITY,URINE CLEAR (CLEAR); ICTOTEST,URINE NEGATIVE
[2021-02-17 12:07] LABS: AMPHETAMINE SCREEN,URINE POSITIVE (NEGATIVE); BARBITURATE SCREEN,UR NEGATIVE (NEGATIVE); BENZODIAZEPINES SCREEN, URINE NEGATIVE (NEGATIVE); COCAINE SCREEN URINE NEGATIVE (NEGATIVE); METHADONE SCREEN, URINE NEGATIVE (NEGATIVE); METHAMPHETAMINES SCREEN, URINE POSITIVE (NEGATIVE); OPIATE SCREEN, URINE NEGATIVE (NEGATIVE); OXYCODONE SCREEN, URINE NEGATIVE (NEGATIVE); PROPOXYPHENE SCREEN, URINE NEGATIVE (NEGATIVE); THC CANNABINOID SCREEN, URINE POSITIVE (NEGATIVE); TRICYCLIC ANTIDEPRESSANT,URINE NEGATIVE (NEGATIVE)
[2021-02-17 12:11] LABS: BASOPHILS # (AUTO) 0.1 10^3/uL (0.0-0.1); BASOPHILS % (AUTO) 0.5 %; EOSINOPHILS % (AUTO) 0.3 %; HCT - HEMATOCRIT 36.5 % (37.0-47.0); HGB - HEMOGLOBIN 12.5 g/dL (12.0-16.0); LYMPHOCYTES % (AUTO) 18.6 %; MEAN CORPUSCULAR HEMOGLOBIN 31.3 pg (27.0-31.0); MEAN CORPUSCULAR HGB CONC 34.2 g/dL (32.0-36.0); MEAN CORPUSCULAR VOLUME 91.5 fL (81.0-99.0); MEAN PLATELET VOLUME 9.9 fL (7.9-10.8); MONOCYTES # (AUTO) 1.1 10^3/uL (0.0-1.0); MONOCYTES % (AUTO) 9.8 %; NEUTROPHILS # (AUTO) 7.7 10^3/uL (1.5-6.6); NEUTROPHILS % (AUTO) 70.5 %; PLT - PLATELET COUNT 304 10^3/uL (130-450); RED BLOOD COUNT 3.99 10^6/uL (4.20-5.40); RED CELL DISTRIBUTION WIDTH 12.6 % (12.0-15.0); WHITE BLOOD COUNT 10.9 x10^3/uL (4.8-10.8)
[2021-02-17 12:25] LABS: ACETAMINOPHEN < 10 ug/mL (10-30); ALBUMIN 4.5 g/dL (3.2-5.5); ALBUMIN/GLOBULIN RATIO 1.6 (1.0-2.2); ALKALINE PHOSPHATASE 63 IU/L (42-121); ALT ALANINE AMINOTRANSFERASE 29 IU/L (10-60); AST ASPARTATE AMINOTRANSFERASE 51 IU/L (10-42); BILIRUBIN,TOTAL 1.1 mg/dL (0.2-1.0); BUN - BLOOD UREA NITROGEN 10 mg/dL (6-20); CALCIUM 9.2 mg/dL (8.5-10.3); CARBON DIOXIDE - CO2 21 mmol/L (21-32); CHLORIDE 104 mmol/L (101-111); CREATININE 0.9 mg/dL (0.4-1.0); ETOH - ETHANOL < 5.0 mg/dL; GFR - MDRD 71 (>89); GLUCOSE 109 mg/dL (70-100); LIPASE 22 U/L (22-51); POTASSIUM 2.8 mmol/L (3.5-5.0); SALICYLATE < 6.0 mg/dL; SODIUM 137 mmol/L (135-145); TOTAL PROTEIN 7.3 g/dL (6.7-8.2)
[2021-02-17] MEDS ORDERED: POTASSIUM CHLORIDE 20 MEQ TABLET PO STA (12:58)
== END 2021-02-17 12:51 | disposition left against medical advice (07) ==
LOC: EDUNIT# → ED 11:17
DX: Z53.21 Procedure and treatment not carried out due to patient leaving prior to being seen by health care provider (principal)
CPT/HCPCS: 36415; 80053; 80306; 80307; 80320; 80329; 81001; 81003; 81025; 83690; 84443; 85025; 87086

== ENCOUNTER 2021-06-17 02:36 | Outpatient (CLI) | payer MEDICAID | END 2021-06-17 02:37 | disposition EMS.NT | LOC: EMS 02:36 | DX: Z03.89 Encounter for observation for other suspected diseases and conditions ruled out (principal) ==

== ENCOUNTER 2021-09-13 14:16 | Outpatient (CLI) | payer MEDICAID | END 2021-09-13 23:59 | disposition critical access hospital (66) | LOC: EMS 14:16 | DX: Z04.6 Encounter for general psychiatric examination, requested by authority (principal); R41.82 Altered mental status, unspecified; S99.922A Unspecified injury of left foot, initial encounter; X58.XXXA Exposure to other specified factors, initial encounter | CPT/HCPCS: A0425; A0429; A0999 ==

== ENCOUNTER 2021-09-13 14:35 | Emergency (ER) | payer MEDICAID ==
[2021-09-13 14:58] LABS: BASOPHILS # (AUTO) 0.1 10^3/uL (0.0-0.1); BASOPHILS % (AUTO) 0.7 %; EOSINOPHILS # (AUTO) 0.1 10^3/uL (0.0-0.7); HCT - HEMATOCRIT 37.3 % (37.0-47.0); HGB - HEMOGLOBIN 12.4 g/dL (12.0-16.0); LYMPHOCYTES # (AUTO) 1.8 10^3/uL (1.5-3.5); LYMPHOCYTES % (AUTO) 22.4 %; MEAN CORPUSCULAR HEMOGLOBIN 30.4 pg (27.0-31.0); MEAN CORPUSCULAR HGB CONC 33.2 g/dL (32.0-36.0); MEAN CORPUSCULAR VOLUME 91.4 fL (81.0-99.0); MEAN PLATELET VOLUME 10.5 fL (7.9-10.8); MONOCYTES # (AUTO) 0.9 10^3/uL (0.0-1.0); NEUTROPHILS # (AUTO) 5.2 10^3/uL (1.5-6.6); NEUTROPHILS % (AUTO) 64.7 %; PLT - PLATELET COUNT 287 10^3/uL (130-450); RED BLOOD COUNT 4.08 10^6/uL (4.20-5.40); RED CELL DISTRIBUTION WIDTH 12.5 % (12.0-15.0); WHITE BLOOD COUNT 8.1 x10^3/uL (4.8-10.8)
[2021-09-13 15:18] LABS: ACETAMINOPHEN < 10 ug/mL (10-30); ALBUMIN 3.9 g/dL (3.2-5.5); ALBUMIN/GLOBULIN RATIO 1.2 (1.0-2.2); ALKALINE PHOSPHATASE 73 IU/L (42-121); ALT ALANINE AMINOTRANSFERASE 30 IU/L (10-60); AST ASPARTATE AMINOTRANSFERASE 25 IU/L (10-42); BILIRUBIN,TOTAL 0.5 mg/dL (0.2-1.0); BUN - BLOOD UREA NITROGEN 14 mg/dL (6-20); CALCIUM 9.1 mg/dL (8.5-10.3); CARBON DIOXIDE - CO2 26 mmol/L (21-32); CHLORIDE 102 mmol/L (101-111); CREATININE 0.7 mg/dL (0.4-1.0); ETOH - ETHANOL < 5.0 mg/dL; GFR - MDRD 95 (>89); GLUCOSE 111 mg/dL (70-100); LIPASE 34 U/L (22-51); POTASSIUM 3.1 mmol/L (3.5-5.0); SALICYLATE < 6.0 mg/dL; SODIUM 138 mmol/L (135-145); TOTAL PROTEIN 7.2 g/dL (6.7-8.2)
[2021-09-13 15:44] LABS: MUDS CUTOFF CONCENTRATIONS CUTOFF CONC BELOW:
[2021-09-13 15:54] LABS: BILIRUBIN,URINE NEGATIVE (NEGATIVE); GLUCOSE, URINE (UA) NEGATIVE (NEGATIVE); KETONES,URINE (UA) NEGATIVE (NEGATIVE); LEUKOCYTE ESTERASE, URINE NEGATIVE (NEGATIVE); NITRITE,URINE NEGATIVE (NEGATIVE); OCCULT BLOOD,URINE NEGATIVE (NEGATIVE); PROTEIN,URINE NEGATIVE (NEGATIVE); UROBILINOGEN,URINE 0.2 (NORMAL) E.U./dL (NORMAL)
[2021-09-13 16:01] LABS: CLARITY,URINE CLEAR (CLEAR); HCG UR QUAL NEGATIVE
[2021-09-13 16:18] LABS: AMPHETAMINE SCREEN,URINE POSITIVE (NEGATIVE); BARBITURATE SCREEN,UR NEGATIVE (NEGATIVE); BENZODIAZEPINES SCREEN, URINE NEGATIVE (NEGATIVE); COCAINE SCREEN URINE NEGATIVE (NEGATIVE); METHADONE SCREEN, URINE NEGATIVE (NEGATIVE); METHAMPHETAMINES SCREEN, URINE POSITIVE (NEGATIVE); OPIATE SCREEN, URINE NEGATIVE (NEGATIVE); OXYCODONE SCREEN, URINE NEGATIVE (NEGATIVE); PROPOXYPHENE SCREEN, URINE NEGATIVE (NEGATIVE); THC CANNABINOID SCREEN, URINE NEGATIVE (NEGATIVE); TRICYCLIC ANTIDEPRESSANT,URINE NEGATIVE (NEGATIVE)
--- NOTE | 2021-09-13 16:32 | ED Physician Documentation ---
PD HPI MHE - Stated complaint Stated Complaint: MHE/FOOT INFECTION - Chief complaint Chief Complaint: MHE - History obtained from History obtained from: Patient, EMS - History of Present Illness Timing - onset: Today Pain level max: 0 Pain level now: 0 Contributing factors: Substance abuse - drugs (methamphetamine) Similar symptoms before: Has not had sx before Recently seen: Not recently seen - Additional information Additional information: Patient is a 36-year-old female brought in by EMS for an involuntary mental health treatment hold. They state that she is "gravely disabled". The DCR reportedly saw her on scene. They did not bring any involuntary commitment paperwork with them. Patient states she has not suicidal or homicidal. 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 : None HEENT: None Psych: Other Musculoskeletal: None Derm: None - Past Surgical History Past Surgical History: No - Present Medications Home Medications: Ambulatory Orders Medication Instructions Recorded Confirmed clindamycin HCL [Cleocin HCl] 300 mg PO Q6H #28 cap 09/13/21 - Allergies Allergies/Adverse Reactions: Allergies Allergy/AdvReac Type Severity Reaction Status Date / Time No Known Drug Allergies Allergy Verified 09/13/21 14:44 - Social History Does the pt smoke?: Yes Smoking Status: Current every day smoker Does the pt drink ETOH?: No Does the pt have substance abuse?: Yes - Immunizations Immunizations are current?: No Immunizations: TDAP >10years/unknown - POLST Patient has POLST: No PD ED PE NORMAL - Vitals Vital signs reviewed: Yes - General General: Alert and oriented X 3, No acute distress, Well developed/nourished - HEENT HEENT: Moist mucous membranes, Pharynx benign - Neck Neck: Supple, no meningeal sign - Cardiac Cardiac: RRR, Strong equal pulses - Respiratory Respiratory: No respiratory distress, Clear bilaterally - Abdomen Abdomen: Soft, Non tender, Non distended - Derm Derm: Warm and dry - Extremities Extremities: Other (Cool left calf, warm right calf. 2 small purplish areas to the distal left toes. No drainage. No abscess. No tenderness) - Neuro Neuro: Alert and oriented X 3 - Psych Psych: Normal mood, Normal affect Results - Vitals Vitals: Vital Signs - 24 hr 09/13/21 09/13/21 09/13/21 14:42 16:50 19:30 Temperature 36.7 C 37.1 C Heart Rate 104 H 102 H 84 Respiratory 20 18 14 Rate Blood Pressure 150/84 H 148/76 H 124/76 O2 Saturation 100 98 Oxygen O2 Source Room air - Labs Labs: Laboratory Tests 09/13/21 09/13/21 09/13/21 14:53 14:53 14:53 WBC 8.1 RBC 4.08 L Hgb 12.4 Hct 37.3 MCV 91.4 MCH 30.4 MCHC 33.2 RDW 12.5 Plt Count 287 MPV 10.5 Neut # (Auto) 5.2 Lymph # (Auto) 1.8 [place] # (Auto) 0.9 Eos # (Auto) 0.1 Baso # (Auto) 0.1 Absolute Nucleated RBC 0.00 Nucleated RBC % 0.0 ESR Sodium 138 Potassium 3.1 L Chloride 102 Carbon Dioxide 26 Anion Gap 10.0 BUN 14 Creatinine 0.7 Estimated GFR (MDRD) 95 Glucose 111 H Lactic Acid Calcium 9.1 Total Bilirubin 0.5 AST 25 ALT 30 Alkaline Phosphatase 73 C-Reactive Protein Total Protein 7.2 Albumin 3.9 Globulin 3.3 Albumin/Globulin Ratio 1.2 Lipase 34 TSH 1.64 Urine Color Urine Clarity Urine pH Ur Specific [place] Urine Protein Urine Glucose (UA) Urine Ketones Urine Occult Blood Urine Nitrite Urine Bilirubin Urine Urobilinogen Ur Leukocyte Esterase Ur Microscopic Review Urine Culture Comments Urine HCG, Qual Nasal Adenovirus (PCR) Nasal B. parapertussis DNA (PCR) Nasal Coronavir 229E PCR Nasal Coronavir HKU1 PCR Nasal Coronavir NL63 PCR Nasal Coronavir OC43 PCR Nasal Enterovir/Rhinovir PCR Nasal Influenza B PCR Nasal Influenza A PCR Nasal Parainfluen 1 PCR Nasal Parainfluen 2 PCR Nasal Parainfluen 3 PCR Nasal Parainfluen 4 PCR Nasal RSV (PCR) Nasal B.pertussis DNA PCR Nasal C.pneumoniae (PCR) [place] Human Metapneumo PCR Nasal M.pneumoniae (PCR) Nasal SARS-CoV-2 (PCR) Salicylates < 6.0 Urine Opiates Screen Ur Oxycodone Screen Urine Methadone Screen Ur Propoxyphene Screen Acetaminophen < 10 L Ur Barbiturates Screen Ur Tricyclics Screen Ur Phencyclidine Scrn Ur Amphetamine Screen U Methamphetamines Scrn U Benzodiazepines Scrn Urine Cocaine Screen U Cannabinoids Screen Ethyl Alcohol < 5.0 09/13/21 09/13/21 09/13/21 15:20 15:20 15:20 WBC RBC Hgb Hct MCV MCH MCHC RDW Plt Count MPV Neut # (Auto) Lymph # (Auto) [place] # (Auto) Eos # (Auto) Baso # (Auto) Absolute Nucleated RBC Nucleated RBC % ESR 11 Sodium Potassium Chloride Carbon Dioxide Anion Gap BUN Creatinine Estimated GFR (MDRD) Glucose Lactic Acid 1.7 Calcium Total Bilirubin AST ALT Alkaline Phosphatase C-Reactive Protein < 1.0 Total Protein Albumin Globulin Albumin/Globulin Ratio Lipase TSH Urine Color Urine Clarity Urine pH Ur Specific [place] Urine Protein Urine Glucose (UA) Urine Ketones Urine Occult Blood Urine Nitrite Urine Bilirubin Urine Urobilinogen Ur Leukocyte Esterase Ur Microscopic Review Urine Culture Comments Urine HCG, Qual Nasal Adenovirus (PCR) Nasal B. parapertussis DNA (PCR) Nasal Coronavir 229E PCR Nasal Coronavir HKU1 PCR Nasal Coronavir NL63 PCR Nasal Coronavir OC43 PCR Nasal Enterovir/Rhinovir PCR Nasal Influenza B PCR Nasal Influenza A PCR Nasal Parainfluen 1 PCR Nasal Parainfluen 2 PCR Nasal Parainfluen 3 PCR Nasal Parainfluen 4 PCR Nasal RSV (PCR) Nasal B.pertussis DNA PCR Nasal C.pneumoniae (PCR) [place] Human Metapneumo PCR Nasal M.pneumoniae (PCR) Nasal SARS-CoV-2 (PCR) Salicylates Urine Opiates Screen Ur Oxycodone Screen Urine Methadone Screen Ur Propoxyphene Screen Acetaminophen Ur Barbiturates Screen Ur Tricyclics Screen Ur Phencyclidine Scrn Ur Amphetamine Screen U Methamphetamines Scrn U Benzodiazepines Scrn Urine Cocaine Screen U Cannabinoids Screen Ethyl Alcohol 09/13/21 09/13/21 15:34 16:54 WBC RBC Hgb Hct MCV MCH MCHC RDW Plt Count MPV Neut # (Auto) Lymph # (Auto) [place] # (Auto) Eos # (Auto) Baso # (Auto) Absolute Nucleated RBC Nucleated RBC % ESR Sodium Potassium Chloride Carbon Dioxide Anion Gap BUN Creatinine Estimated GFR (MDRD) Glucose Lactic Acid Calcium Total Bilirubin AST ALT Alkaline Phosphatase C-Reactive Protein Total Protein Albumin Globulin Albumin/Globulin Ratio Lipase TSH Urine Color YELLOW Urine Clarity CLEAR Urine pH 7.0 Ur Specific [place] 1.020 Urine Protein NEGATIVE Urine Glucose (UA) NEGATIVE Urine Ketones NEGATIVE Urine Occult Blood NEGATIVE Urine Nitrite NEGATIVE Urine Bilirubin NEGATIVE Urine Urobilinogen 0.2 (NORMAL) Ur Leukocyte Esterase NEGATIVE Ur Microscopic Review NOT INDICATED Urine Culture Comments NOT INDICATED Urine HCG, Qual NEGATIVE Nasal Adenovirus (PCR) NOT DETECTED Nasal B. parapertussis DNA (PCR) NOT DETECTED Nasal Coronavir 229E PCR NOT DETECTED Nasal Coronavir HKU1 PCR NOT DETECTED Nasal Coronavir NL63 PCR NOT DETECTED Nasal Coronavir OC43 PCR NOT DETECTED Nasal Enterovir/Rhinovir PCR NOT DETECTED Nasal Influenza B PCR NOT DETECTED Nasal Influenza A PCR NOT DETECTED Nasal Parainfluen 1 PCR NOT DETECTED Nasal Parainfluen 2 PCR NOT DETECTED Nasal Parainfluen 3 PCR NOT DETECTED Nasal Parainfluen 4 PCR NOT DETECTED Nasal RSV (PCR) NOT DETECTED Nasal B.pertussis DNA PCR NOT DETECTED Nasal C.pneumoniae (PCR) NOT DETECTED [place] Human Metapneumo PCR NOT DETECTED Nasal M.pneumoniae (PCR) NOT DETECTED Nasal SARS-CoV-2 (PCR) NOT DETECTED Salicylates Urine Opiates Screen NEGATIVE Ur Oxycodone Screen NEGATIVE Urine Methadone Screen NEGATIVE Ur Propoxyphene Screen NEGATIVE Acetaminophen Ur Barbiturates Screen NEGATIVE Ur Tricyclics Screen NEGATIVE Ur Phencyclidine Scrn NEGATIVE Ur Amphetamine Screen POSITIVE H U Methamphetamines Scrn POSITIVE H U Benzodiazepines Scrn NEGATIVE Urine Cocaine Screen NEGATIVE U Cannabinoids Screen NEGATIVE Ethyl Alcohol - Rads (name of study) Arterial ultrasound, left lower extremity Radiology: Final report received, EMP read contemporaneously, See rad report (Diffuse elevated velocities involving the left lower arteries and monophasic flow. Findings compatible with proximal stenosis of the left lower extremity inflow disease.) PD MEDICAL DECISION MAKING - ED course Complexity details: reviewed results, re-evaluated patient, considered differential, d/w patient ED course: Patient is a 36-year-old female who has been using methamphetamines. Her left lower extremity did warm up to the same temperature as her right lower extremity. The purple discoloration did resolve on the toes. She has evidence of a proximal stenosis somewhere in the arterial system on the left lower extremity. Patient adamantly refuses a CT scan for further evaluation. The DCR was consulted, John, does not feel that she meets criteria for involuntary hold at this time. The patient is not actively suicidal or homicidal. She does refuse any further work-up and states that she will follow up with her doctor for further care. Patient is well-appearing, nontoxic. Afebrile. Ambulating without difficulty. Patient counseled regarding signs and symptoms for which I believe and urgent re-evaluation would be necessary. Patient with good understanding of and agreement to plan and is comfortable going home at this time This document was made in part using voice recognition software. While efforts are made to proofread this document, sound alike and grammatical errors may occur. Departure - Departure Disposition: Home, Self Care Clinical Impression: Methamphetamine use, Homelessness, Artery stenosis Schizoaffective disorder Qualifiers: Schizoaffective disorder type: unspecified Qualified Code(s): F25.9 - Schizoaffective disorder, unspecified Cellulitis Qualifiers: Site of cellulitis: extremity Site of cellulitis of extremity: toe Laterality: left Qualified Code(s): L03.032 - Cellulitis of left toe Condition: Good Instructions: ED Drug Abuse General Follow-Up: your,doctor in 1 week [Other] Prescriptions: clindamycin HCL [Cleocin HCl] 300 mg PO Q6H #28 cap Comments: We have sent a prescription for you to [facility]. Please take all antibiotics until gone. Please follow-up with your doctor for a wound check on your feet within 1 week. Follow-up as directed by John the [facility] tongalindo. Return if you worsen You also need to follow-up with your doctor regarding your abnormal ultrasound of your left lower extremity. You will likely need a CT scan of the area to evaluate for any proximal stenosis. Return if you worsen or change your mind about further evaluation. Discharge Date/Time: 09/13/21 19:46
[2021-09-13] MEDS ORDERED: CLINDAMYCIN 150 MG CAPSULE PO STA (17:44)
[2021-09-13 18:06] LABS: CORONAVIRUS 229E-RESP PCR NOT DETECTED; CORONAVIRUS HKU1-RESP PCR NOT DETECTED
[2021-09-13 18:07] LABS: B. PARAPERTUSSIS- RESP PCR PAN NOT DETECTED; B. PERTUSSIS- RESP PCR PANEL NOT DETECTED; C. PNEUMONIAE- RESP PCR PANEL NOT DETECTED; CORONAVIRUS NL63-RESP PCR NOT DETECTED; CORONAVIRUS OC43-RESP PCR NOT DETECTED; HUMAN METAPNEUMOVIRUS NOT DETECTED; INFLUENZA A- RESP PCR PANEL NOT DETECTED; INFLUENZA B - RESP PCR PANEL NOT DETECTED; M. PNEUMONIAE- RESP PCR PANEL NOT DETECTED; PARAINFLUENZA VIRUS 1 NOT DETECTED; PARAINFLUENZA VIRUS 2 NOT DETECTED; PARAINFLUENZA VIRUS 3 NOT DETECTED; PARAINFLUENZA VIRUS 4 NOT DETECTED; RHINOVIRUS/ENTEROVIRUS NOT DETECTED; RSV- RESP PCR PANEL NOT DETECTED; SARS-CoV-2 -RESP PCR PANEL NOT DETECTED
--- NOTE | 2021-09-13 18:15 | Ultrasound Report ---
PROCEDURE: Duplex Lwr Ext Arterial LT INDICATIONS: LLE cold, purple toes TECHNIQUE: Color and pulse Doppler interrogation was performed of the left lower extremity arterial system, with image documentation. COMPARISON: None FINDINGS: Common femoral artery: 240 cm/sec, with monophasic flow. Deep femoral artery: 194 cm/sec, with monophasic flow. Proximal superficial femoral artery: 199 cm/sec, with monophasic flow. Mid superficial femoral artery: 223 cm/sec, with monophasic flow. Distal superficial femoral artery: 180 cm/sec, with monophasic flow. Popliteal artery: 167 cm/sec, with monophasic flow. Posterior tibial artery: 145 cm/sec, with monophasic flow. Anterior tibial artery/dorsalis pedis: 145/147 cm/sec, with monophasic flow. [place]choa-scale imaging description: No atherosclerotic plaque identified. IMPRESSION: Diffuse elevated velocities involving the left lumpectomy arteries and monophasic flow. Findings comp atible proximal stenosis with left lower extremity inflow disease. Reviewed by: Sandra Chavez MD, PhD on 09/13/2021 6:14 PM PST Approved by: Sandra Chavez MD, PhD on 09/13/2021 6:14 PM PST Station ID: [id number]
[2021-09-13 19:31] VITALS: BP 124/76
== END 2021-09-13 19:46 | disposition home or self-care (01) ==
LOC: EDUNIT# → ED 14:35
DX: L03.032 Cellulitis of left toe (principal); F15.90 Other stimulant use, unspecified, uncomplicated; F25.9 Schizoaffective disorder, unspecified; I65.29 Occlusion and stenosis of unspecified carotid artery; F17.200 Nicotine dependence, unspecified, uncomplicated; Z59.00 Homelessness unspecified; Z20.822 Contact with and (suspected) exposure to COVID-19
CPT/HCPCS: 0202U; 36415; 80053; 80306; 80307; 80320; 80329; 81003; 81025; 83605; 83690; 84443; 85025; 85651; 86140; 87040; 93926; 99283; 99284; A9270; 81001; 87086

== ENCOUNTER 2021-09-24 10:04 | Outpatient (CLI) | payer MEDICAID | END 2021-09-24 10:05 | disposition critical access hospital (66) | LOC: EMS 10:04 | DX: M79.672 Pain in left foot (principal); M79.89 Other specified soft tissue disorders | CPT/HCPCS: A0425; A0429; A0999 ==

== ENCOUNTER 2021-09-24 10:15 | Emergency (ER) | payer MEDICAID ==
[2021-09-24 10:27] VITALS: BP 128/101
[2021-09-24 11:26] LABS: BASOPHILS # (AUTO) 0.1 10^3/uL (0.0-0.1); BASOPHILS % (AUTO) 0.6 %; EOSINOPHILS # (AUTO) 0.1 10^3/uL (0.0-0.7); EOSINOPHILS % (AUTO) 1.1 %; HCT - HEMATOCRIT 43.5 % (37.0-47.0); HGB - HEMOGLOBIN 14.4 g/dL (12.0-16.0); LYMPHOCYTES # (AUTO) 2.1 10^3/uL (1.5-3.5); LYMPHOCYTES % (AUTO) 21.8 %; MEAN CORPUSCULAR HEMOGLOBIN 29.9 pg (27.0-31.0); MEAN CORPUSCULAR HGB CONC 33.1 g/dL (32.0-36.0); MEAN CORPUSCULAR VOLUME 90.2 fL (81.0-99.0); MEAN PLATELET VOLUME 10.2 fL (7.9-10.8); MONOCYTES # (AUTO) 0.9 10^3/uL (0.0-1.0); MONOCYTES % (AUTO) 9.6 %; NEUTROPHILS # (AUTO) 6.4 10^3/uL (1.5-6.6); NEUTROPHILS % (AUTO) 66.8 %; PLT - PLATELET COUNT 319 10^3/uL (130-450); RED BLOOD COUNT 4.82 10^6/uL (4.20-5.40); RED CELL DISTRIBUTION WIDTH 12.4 % (12.0-15.0); WHITE BLOOD COUNT 9.5 x10^3/uL (4.8-10.8)
[2021-09-24 11:33] LABS: CALCIUM 9.4 mg/dL (8.5-10.3); CREATININE 0.6 mg/dL (0.4-1.0); POTASSIUM 3.7 mmol/L (3.5-5.0)
[2021-09-24] MEDS ORDERED: IOVERSOL 320 100 ML VIAL IVP ONE (12:00)
--- NOTE | 2021-09-24 13:15 | ED Physician Documentation ---
History of Present Illness - Stated complaint Stated Complaint: L FT PX - Chief complaint Chief Complaint: Ext Problem - History obtained from History obtained from: Patient, EMS - History of Present Illness Pain level max: 2 Pain level now: 1 - Additonal information Additional information: Patient is a 36-year-old female brought in by EMS for left foot pain. She states that she has bruising to her left second and third toes as well as pain. Nothing makes it better or worse. Does not recall any injury. No fevers. No chills. She does smoke cigarettes and methamphetamine. 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 : None HEENT: None Psych: Other Musculoskeletal: None Derm: None - Past Surgical History Past Surgical History: No - Present Medications Home Medications: Ambulatory Orders Medication Instructions Recorded Confirmed clindamycin HCL [Cleocin HCl] 300 mg PO Q6H #28 cap 09/13/21 - Allergies Allergies/Adverse Reactions: Allergies Allergy/AdvReac Type Severity Reaction Status Date / Time No Known Drug Allergies Allergy Verified 09/24/21 10:21 - Social History Does the pt smoke?: Yes Smoking Status: Current every day smoker Does the pt drink ETOH?: No Does the pt have substance abuse?: Yes - Immunizations Immunizations are current?: No Immunizations: TDAP >10years/unknown - POLST Patient has POLST: No PD ED PE NORMAL - Vitals Vital signs reviewed: Yes - General General: Alert and oriented X 3, No acute distress, Well developed/nourished - HEENT HEENT: PERRL, Moist mucous membranes - Neck Neck: Supple, no meningeal sign - Cardiac Cardiac: RRR - Respiratory Respiratory: No respiratory distress, Clear bilaterally - Abdomen Abdomen: Soft, Non tender, Non distended - Derm Derm: Warm and dry - Extremities Extremities: Other (Small amount of what appears to be bruising to the left first second and third toes, dorsal aspect. No sign of infection. NVI) - Neuro Neuro: Alert and oriented X 3 Results - Vitals Vitals: Vital Signs - 24 hr 09/24/21 10:21 Temperature 36.6 C Heart Rate 115 H Respiratory 20 Rate Blood Pressure 128/101 H O2 Saturation 99 Oxygen O2 Source Room air - Labs Labs: Laboratory Tests 09/24/21 09/24/21 11:17 11:17 WBC 9.5 RBC 4.82 Hgb 14.4 Hct 43.5 MCV 90.2 MCH 29.9 MCHC 33.1 RDW 12.4 Plt Count 319 MPV 10.2 Neut # (Auto) 6.4 Lymph # (Auto) 2.1 [place] # (Auto) 0.9 Eos # (Auto) 0.1 Baso # (Auto) 0.1 Absolute Nucleated RBC 0.00 Nucleated RBC % 0.0 Sodium 140 Potassium 3.7 Chloride 104 Carbon Dioxide 23 Anion Gap 13.0 BUN 14 Creatinine 0.6 Estimated GFR (MDRD) 113 Glucose 101 H Calcium 9.4 PD MEDICAL DECISION MAKING - ED course Complexity details: reviewed results, re-evaluated patient, considered differential, d/w patient ED course: Patient is a 36-year-old female who came in for left foot pain. Her duplex arterial ultrasound a few weeks ago showed monophasic flow in the left lower extremity. Discussed this with the patient, she had refused CT scan on prior visit. She agrees to a CT angio of her abdomen pelvis with runoff into the legs today. Patient was ordered for this. While awaiting for her labs to return, the patient decided she did not want to be seen anymore and eloped from the emergency department. She did not have an IV at the time of elopement. This document was made in part using voice recognition software. While efforts are made to proofread this document, sound alike and grammatical errors may occur. Departure - Departure Disposition: ED Elope Clinical Impression: Methamphetamine use, Left foot pain Condition: Stable Discharge Date/Time: 09/24/21 11:35
== END 2021-09-24 11:35 | disposition left against medical advice (07) ==
LOC: EDUNIT# → ED 10:15
DX: M79.672 Pain in left foot (principal); F17.200 Nicotine dependence, unspecified, uncomplicated
CPT/HCPCS: 36415; 80048; 85025; 99282; 99283

== ENCOUNTER 2023-05-01 20:56 | Outpatient (CLI) | payer SELFPAY | END 2023-05-01 20:57 | disposition critical access hospital (66) | LOC: EMS 20:56 | DX: R46.89 Other symptoms and signs involving appearance and behavior (principal) | CPT/HCPCS: A0425; A0429 ==

== ENCOUNTER 2023-05-02 21:50 | Outpatient (CLI) | payer MEDICAID, OTHER | END 2023-05-02 23:59 | disposition EMS.NT | LOC: EMS 21:50 | DX: Z03.89 Encounter for observation for other suspected diseases and conditions ruled out (principal) ==

== ENCOUNTER 2023-05-03 03:54 | Emergency (ER) | payer MEDICAID ==
[2023-05-03] MEDS ORDERED: SODIUM CHLORIDE 0.9% 2,500 ML IV STA (04:07)
[2023-05-03] MEDS ORDERED: ACETAMINOPHEN 325 MG TABLET PO STA (04:07)
--- NOTE | 2023-05-03 04:08 | ED Physician Documentation ---
History of Present Illness - Stated complaint Stated Complaint: LUQ/RIB PX - History obtained from History obtained from: Patient, EMS - Additonal information Additional information: 38yF with pmh meth abuse, bipolar disorder, presents from [facility] with nonproductive cough, fever, L rib pain X 1 day. denies cp. +soa. 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 : None HEENT: None Psych: Other Musculoskeletal: None Derm: None - Past Surgical History Past Surgical History: No - Present Medications Home Medications: Ambulatory Orders Medication Instructions Recorded Confirmed Amox/Clav 875/125 [Augmentin 1 tablet PO Q12H 7 Days #14 tablet 05/03/23 875/125 Tab] Azithromycin [Zithromax Tri-Jacobo] 500 mg PO QDAC 5 Days #6 tablet 05/03/23 diphenhydrAMINE HCL [Sleep Aid] 25 mg PO QPM 05/03/23 05/03/23 - Allergies Allergies/Adverse Reactions: Allergies Allergy/AdvReac Type Severity Reaction Status Date / Time No Known Drug Allergies Allergy Verified 09/24/21 10:21 - Social History Does the pt smoke?: Yes Smoking Status: Current every day smoker Does the pt drink ETOH?: No Does the pt have substance abuse?: Yes - Immunizations Immunizations are current?: No Immunizations: TDAP >10years/unknown - POLST Patient has POLST: No PD ED PE NORMAL - Vitals Vital signs reviewed: Yes - General General: Alert and oriented X 3, Well developed/nourished, Other (disheveled appearing) - HEENT HEENT: Atraumatic, PERRL, EOMI, Moist mucous membranes, Pharynx benign - Neck Neck: Supple, no meningeal sign - Cardiac Cardiac: Other (tachycardic rate, regular rhythm) - Respiratory Respiratory: Other (diminished breath sounds in left lower lung chaparro) - Abdomen Abdomen: Non tender, Non distended - Derm Derm: Normal color, Warm and dry Results - Vitals Vitals: Vital Signs - 24 hr 05/03/23 05/03/23 05/03/23 03:57 04:25 05:18 Temperature 37 C 37.3 C Heart Rate 104 H 104 H 97 Respiratory 22 16 22 Rate Blood Pressure 101/59 L 101/59 L 115/70 O2 Saturation 94 96 98 05/03/23 05/03/23 05:43 06:43 Temperature 37.0 C Heart Rate 94 88 Respiratory 20 23 Rate Blood Pressure 97/68 94/65 O2 Saturation 96 97 Oxygen O2 Source Room air - Labs Labs: Laboratory Tests 05/03/23 05/03/23 05/03/23 04:28 04:28 04:28 WBC 19.6 H RBC 3.65 L Hgb 11.2 L Hct 32.7 L MCV 89.6 MCH 30.7 MCHC 34.3 RDW 12.8 Plt Count 308 MPV 9.5 Neut # (Auto) 17.1 H Lymph # (Auto) 0.8 L [place] # (Auto) 1.3 H Eos # (Auto) 0.1 Baso # (Auto) 0.1 Absolute Nucleated RBC 0.00 Nucleated RBC % 0.0 Sodium 133 L Potassium 3.5 Chloride 100 L Carbon Dioxide 25 Anion Gap 8.0 BUN 9 Creatinine 0.6 Estimated GFR (MDRD) 112 Glucose 116 H Lactic Acid 0.6 Calcium 8.8 Total Bilirubin 0.8 AST 17 ALT 24 Alkaline Phosphatase 85 Total Protein 7.0 Albumin 3.4 Globulin 3.6 Albumin/Globulin Ratio 0.9 L PD Medical Decision Making - ED course ED course: 38yF with pmh bipolar and meth abuse p/w likely L sided pneumonia from [facility]. plan to obtain cxr, labs, and provide ivf/tylenol and reevaluate. Patient with new onset anemia from previous, as well as WBC 19.6. lactic acid normal. d/w Dr. Brown for admission given patient has limited ability to care for herself in outpatient setting due to social determinants of care - homelessness, substance use issues, mental illness. He accepted in admission however patient refused and stated she wants to be discharged so admission was canceled. plan to provide prescription and strict return precautions. Departure - Departure Disposition: 01 Home, Self Care Clinical Impression: Cough, Rib pain on left side, Pneumonia Condition: Stable Instructions: Pneumonia Prescriptions: Amox/Clav 875/125 [Augmentin 875/125 Tab] 1 tablet PO Q12H 7 Days #14 tablet Azithromycin [Zithromax Tri-Jacobo] 500 mg PO QDAC 5 Days #6 tablet Comments: You were seen in the emergency department for Pneumonia. You need to take your antibiotics as prescribed. [facility] [place]. Please follow-up with your primary care provider and return to the emergency department if you have any new or worsening symptoms or other concerns. Forms: PCP List
[2023-05-03 04:35] LABS: BASOPHILS # (AUTO) 0.1 10^3/uL (0.0-0.1); BASOPHILS % (AUTO) 0.6 %; EOSINOPHILS # (AUTO) 0.1 10^3/uL (0.0-0.7); EOSINOPHILS % (AUTO) 0.3 %; HCT - HEMATOCRIT 32.7 % (37.0-47.0); HGB - HEMOGLOBIN 11.2 g/dL (12.0-16.0); LYMPHOCYTES # (AUTO) 0.8 10^3/uL (1.5-3.5); MEAN CORPUSCULAR HEMOGLOBIN 30.7 pg (27.0-31.0); MEAN CORPUSCULAR HGB CONC 34.3 g/dL (32.0-36.0); MEAN CORPUSCULAR VOLUME 89.6 fL (81.0-99.0); MEAN PLATELET VOLUME 9.5 fL (7.9-10.8); MONOCYTES # (AUTO) 1.3 10^3/uL (0.0-1.0); MONOCYTES % (AUTO) 6.7 %; NEUTROPHILS # (AUTO) 17.1 10^3/uL (1.5-6.6); NEUTROPHILS % (AUTO) 87.4 %; PLT - PLATELET COUNT 308 10^3/uL (130-450); RED BLOOD COUNT 3.65 10^6/uL (4.20-5.40); RED CELL DISTRIBUTION WIDTH 12.8 % (12.0-15.0); WHITE BLOOD COUNT 19.6 x10^3/uL (4.8-10.8)
[2023-05-03 04:50] LABS: ALBUMIN 3.4 g/dL (3.2-5.5); ALBUMIN/GLOBULIN RATIO 0.9 (1.0-2.2); BILIRUBIN,TOTAL 0.8 mg/dL (0.2-1.0); CALCIUM 8.8 mg/dL (8.5-10.3); CREATININE 0.6 mg/dL (0.6-1.3); POTASSIUM 3.5 mmol/L (3.5-4.5)
[2023-05-03] MEDS ORDERED: AZITHROMYCIN INJ 500 MG in SODIUM CHLORIDE 0.9% 250 ML IV STA (05:06)
[2023-05-03] MEDS ORDERED: cefTRIAXone 2 GM in SODIUM CHLORIDE 0.9% MINIBAG 100 ML IV STA (05:07)
[2023-05-03] MEDS ORDERED: cefTRIAXone 2 GM VIAL ONE (05:20)
[2023-05-03 07:25] VITALS: BP 111/72; O2SAT 99
[2023-05-03 07:49] LABS: B. PARAPERTUSSIS- RESP PCR PAN NOT DETECTED; B. PERTUSSIS- RESP PCR PANEL NOT DETECTED; C. PNEUMONIAE- RESP PCR PANEL NOT DETECTED; CORONAVIRUS 229E-RESP PCR NOT DETECTED; CORONAVIRUS HKU1-RESP PCR NOT DETECTED; CORONAVIRUS NL63-RESP PCR NOT DETECTED; CORONAVIRUS OC43-RESP PCR NOT DETECTED; HUMAN METAPNEUMOVIRUS NOT DETECTED; INFLUENZA A- RESP PCR PANEL NOT DETECTED; INFLUENZA B - RESP PCR PANEL NOT DETECTED; M. PNEUMONIAE- RESP PCR PANEL NOT DETECTED; PARAINFLUENZA VIRUS 1 NOT DETECTED; PARAINFLUENZA VIRUS 2 NOT DETECTED; PARAINFLUENZA VIRUS 3 NOT DETECTED; PARAINFLUENZA VIRUS 4 NOT DETECTED; RHINOVIRUS/ENTEROVIRUS NOT DETECTED; RSV- RESP PCR PANEL NOT DETECTED; SARS-CoV-2 -RESP PCR PANEL NOT DETECTED
--- NOTE | 2023-05-03 08:14 | XRAY Report ---
PROCEDURE: Chest 2 View X-Ray INDICATIONS: cough, L rib pain, fever TECHNIQUE: 2 views of the chest were acquired. COMPARISON: None. FINDINGS: Surgical changes and devices: None. Lungs and pleura: Left lower lobe consolidation. Mediastinum: Mediastinal contours appear normal. Heart size is normal. Bones and chest wall: No suspicious bony lesions. Overlying soft tissues appear unremarkable. IMPRESSION: Left lower lobe consolidation, concerning for pneumonia. Consider CT for further evaluation. Otherwis e, follow-up with x-ray in 2-3 months to ensure resolution. Findings are concordant with preliminary interpretation provided by [facility]. Reviewed by: Jamey Pelaez on 05/03/2023 8:13 AM PDT Approved by: Jamey Pelaez on 05/03/2023 8:13 AM PDT Station ID: [id number]
--- NOTE | 2023-05-03 16:19 | ED Physician Documentation ---
ED Addendum - Addendum Addendum: 05/03/23 16:18 Lab was reporting to nurse that she is growing gram-positive cocci in pairs from one of her 2 blood cultures. I asked the nurse to contact the patient as she will need to come back for further evaluation and treatment.
--- NOTE | 2023-05-03 16:48 | ED Physician Documentation ---
ED Addendum - Addendum Addendum: 05/03/23 16:48 The nurse was having some difficulty finding her through the usual means. I [facility] and spoke with someone there who noted that she is there currently and requested that they notify her that she needs to come back immediately for positive blood cultures and call 911.
== END 2023-05-03 07:55 | disposition home or self-care (01) ==
LOC: EDUNIT# → ED 03:54
DX: J18.9 Pneumonia, unspecified organism (principal); R07.81 Pleurodynia; R78.81 Bacteremia; F17.200 Nicotine dependence, unspecified, uncomplicated; Z20.822 Contact with and (suspected) exposure to COVID-19; Z59.01 Sheltered homelessness
CPT/HCPCS: 36415; 71046; 80053; 83605; 85025; 87040; 87150; 87181; 87633; 96365; 96367; 99284; A9270

== ENCOUNTER 2023-10-09 11:37 | Emergency (ER) | payer MEDICAID ==
--- NOTE | 2023-10-09 11:57 | ED Physician Documentation ---
PD HPI MHE - Stated complaint Stated Complaint: IDA/DCR PICKUP - History obtained from History obtained from: Patient, Police ([place] PD picked up the patient and brought her here at the direction of a court order from the [facility] DCR. The patient was assessed yesterday and felt to be at grave disability due to ongoing psychiatric and substance induced psychosis.) - History of Present Illness Primary symptom: Manic, Medical clearance Timing - onset: How many days ago (unsure how long she has been poorly functioning. Has been watched by outpt social work/DCR. Seen yesterday) Contributing factors: Substance abuse - drugs Similar symptoms before: Diagnosis (The patient reportedly has psychosis related to meth use. Unsure whether an underlying schizoaffective disorder. She had been evaluated by DCR/social work through the [facility] yesterday and felt to be gravely disabled. 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 : None HEENT: None Psych: Schizophrenia, Other Musculoskeletal: None Derm: None - Past Surgical History Past Surgical History: No - Present Medications Home Medications: Ambulatory Orders Medication Instructions Recorded Confirmed No Known Home Medications 10/09/23 10/09/23 - Allergies Allergies/Adverse Reactions: Allergies Allergy/AdvReac Type Severity Reaction Status Date / Time No Known Drug Allergies Allergy Unverified 10/09/23 19:49 - Social History Does the pt smoke?: Yes Smoking Status: Current every day smoker Does the pt drink ETOH?: No Does the pt have substance abuse?: Yes Substance Use and Type: Marijuana, Meth - Immunizations Immunizations are current?: No Immunizations: TDAP >10years/unknown - POLST Patient has POLST: No PD ED PE NORMAL - Vitals Vital signs reviewed: Yes - General General: Well developed/nourished, Other (anxious and angry. Rambling speech and tangential. ) - HEENT HEENT: Atraumatic - Cardiac Cardiac: RRR, No murmur - Respiratory Respiratory: Clear bilaterally - Abdomen Abdomen: Soft, Non tender - Derm Derm: Normal color, Warm and dry - Neuro Neuro: No motor deficit, No sensory deficit, Normal speech Results - Vitals Vitals: Vital Signs - 24 hr 10/09/23 10/09/23 10/09/23 12:28 13:25 13:35 Temperature 36.9 C Heart Rate 122 H 82 86 Respiratory 20 15 18 Rate Blood Pressure 159/101 H 117/69 117/69 O2 Saturation 96 99 96 10/09/23 10/09/23 10/09/23 13:38 14:09 14:37 Temperature Heart Rate 84 82 87 Respiratory 15 15 17 Rate Blood Pressure 117/69 126/69 119/66 O2 Saturation 98 98 97 10/09/23 10/09/23 10/09/23 15:04 15:25 15:37 Temperature 35.7 C L Heart Rate 78 77 72 Respiratory 15 13 13 Rate Blood Pressure 119/69 134/83 H 134/83 H O2 Saturation 99 100 99 10/09/23 10/09/23 10/09/23 16:00 16:30 17:00 Temperature Heart Rate 65 73 66 Respiratory 15 14 13 Rate Blood Pressure 121/72 108/73 128/76 O2 Saturation 98 99 100 10/09/23 10/09/23 10/09/23 17:30 18:08 18:30 Temperature Heart Rate 69 80 65 Respiratory 13 14 15 Rate Blood Pressure 127/65 126/77 126/77 O2 Saturation 100 100 100 10/09/23 10/09/23 10/09/23 19:36 20:00 21:37 Temperature Heart Rate 68 73 86 Respiratory 15 20 16 Rate Blood Pressure 118/76 132/71 H 145/83 H O2 Saturation 100 100 98 Oxygen O2 Source Room air - Labs Labs: Laboratory Tests 10/09/23 10/09/23 10/09/23 13:22 13:22 13:35 WBC 8.0 RBC 4.41 Hgb 13.1 Hct 38.8 MCV 88.0 MCH 29.7 MCHC 33.8 RDW 13.6 Plt Count 249 MPV 10.1 Neut # (Auto) 5.7 Lymph # (Auto) 1.5 [place] # (Auto) 0.8 Eos # (Auto) 0.0 Baso # (Auto) 0.1 Absolute Nucleated RBC 0.00 Nucleated RBC % 0.0 Sodium 136 Potassium 3.6 Chloride 104 Carbon Dioxide 23 Anion Gap 9.0 BUN 15 Creatinine 0.7 Estimated GFR (MDRD) 94 Glucose 117 H Calcium 9.5 Magnesium 1.7 Total Bilirubin 0.7 AST 17 ALT 14 Alkaline Phosphatase 57 Total Creatine Kinase 205 Total Protein 7.3 Albumin 4.3 Globulin 3.0 Albumin/Globulin Ratio 1.4 Lipase 11 TSH 2.35 Urine Color Urine Clarity Urine pH Ur Specific [place] Urine Protein Urine Glucose (UA) Urine Ketones Urine Occult Blood Urine Nitrite Urine Bilirubin Urine Urobilinogen Ur Leukocyte Esterase Urine RBC Urine WBC Ur Squamous Epith Cells Urine Bacteria Ur Microscopic Review Urine Culture Comments Salicylates < 1.5 Urine Opiates Screen Ur Buprenorphine Scrn Ur Oxycodone Screen Urine Methadone Screen Acetaminophen 0.3 Ur Barbiturates Screen Ur Tricyclics Screen Ur Phencyclidine Scrn Ur Amphetamine Screen U Methamphetamines Scrn U Benzodiazepines Scrn Urine Cocaine Screen U Cannabinoids Screen Ur Drug Screen Comment Ethyl Alcohol < 10.0 SARS-CoV-2 (PCR) NOT DETECTED 10/09/23 13:51 WBC RBC Hgb Hct MCV MCH MCHC RDW Plt Count MPV Neut # (Auto) Lymph # (Auto) [place] # (Auto) Eos # (Auto) Baso # (Auto) Absolute Nucleated RBC Nucleated RBC % Sodium Potassium Chloride Carbon Dioxide Anion Gap BUN Creatinine Estimated GFR (MDRD) Glucose Calcium Magnesium Total Bilirubin AST ALT Alkaline Phosphatase Total Creatine Kinase Total Protein Albumin Globulin Albumin/Globulin Ratio Lipase TSH Urine Color YELLOW Urine Clarity HAZY Urine pH 6.5 Ur Specific [place] 1.025 Urine Protein 30 H Urine Glucose (UA) NEGATIVE Urine Ketones NEGATIVE Urine Occult Blood NEGATIVE Urine Nitrite NEGATIVE Urine Bilirubin NEGATIVE Urine Urobilinogen 0.2 (NORMAL) Ur Leukocyte Esterase NEGATIVE Urine RBC 0-5 Urine WBC 0-3 Ur Squamous Epith Cells FEW Squamous Urine Bacteria Rare Ur Microscopic Review INDICATED Urine Culture Comments NOT INDICATED Salicylates Urine Opiates Screen NEGATIVE Ur Buprenorphine Scrn NEGATIVE Ur Oxycodone Screen NEGATIVE Urine Methadone Screen NEGATIVE Acetaminophen Ur Barbiturates Screen NEGATIVE Ur Tricyclics Screen NEGATIVE Ur Phencyclidine Scrn NEGATIVE Ur Amphetamine Screen POSITIVE H U Methamphetamines Scrn POSITIVE H U Benzodiazepines Scrn NEGATIVE Urine Cocaine Screen NEGATIVE U Cannabinoids Screen POSITIVE H Ur Drug Screen Comment CUTOFF CONC BELOW: Ethyl Alcohol SARS-CoV-2 (PCR) PD Medical Decision Making - ED course Complexity details: re-evaluated patient, considered differential, d/w patient, d/w sales support consultant (I did consult social work initially. They were going to call the MHP/DCR. Apparently did not happen as yet. We are now calling the DCR at 1813 hrs. The patient has been resting more comfortably now after more medication earlier.) Reviewed Lab Results: Patient is positive for methamphetamines. Other labs are normal with regard to CBC, toxicity levels, chemistry panel. She is positive for cannabinoids as well but should not be part of her presenting problem. She is medically clear at the time of the lab results which was awhile ago, and has remained somnolent but arousable for several hours now. Still agitated when awake. Social Determinants of Health: I talked with Khushboo the DCR who is familiar with the patient. She has been hospitalized multiple times previously and has underlying schizoaffective disorder which can be exacerbated with the methamphetamine use. They have been watching her closely recently and seem to be decompensated on evaluation yesterday in the community. They will be detaining the patient and start looking for a bed. The patient will need to be out of restraints in order to be placed. At this point we will start removing them as she has remained calm and sleeping. ED course: The patient was brought here under a court ordered detainment/IDA for evaluation and reassessment. She had been deemed gravely disabled due to her psychosis outpatient. Does have history of substance abuse and in particular methamphetamines. Here the patient is having agitated behavior and is brought in with handcuffs. She makes body gestures towards providers. The feeling was likely unsafe and was given chemical and physical restraints. Refer to the initial notes. The patient subsequently did have calming of her demeanor. She is still arousable to tactile and verbal and is not able to follow commands commonly nor converse reasonably. She is pulling at the restraints when roused. The restraints were renewed still for that reason. We are continually reassessing those. At this point we are awaiting DCR to come and evaluate the patient for decision on involuntary treatment etc. The basic labs are without any significant abnormalities. She is positive for methamphetamine as expected. No other acute metabolic problem based on labs. Departure - Departure Disposition: 65 Psych Hosp/Unit DC/Xfer Clinical Impression: Methamphetamine abuse, Psychosis, Behavior disturbance, Schizoaffective disorder Condition: Stable Record reviewed to determine appropriate education?: Yes Forms: PCP List
[2023-10-09] MEDS ORDERED: KETAMINE 500 MG/10 ML VIAL ONE (12:08)
[2023-10-09] MEDS: OLANZapine 10 MG VIAL IM STA ×3 (12:28→13:03)
[2023-10-09] MEDS: KETAMINE 500 MG/10 ML VIAL IM STA (12:28)
--- NOTE | 2023-10-09 12:58 | ED Physician Documentation ---
Restraint [id number] - Immediate Situation Face to Face Evaluation Date: 10/09/23 Face to Face Evaluation Time: 12:56 Restraint Classification: Violent, chemical w/ physical hold - Patient's Reaction & Behaviors Safety: Physically unsafe Verbal: Screaming/Yelling Harm: Potential harm to self, Potential harm to others Physical: Aggressive behavior, Fighting restraints Other: Disruption of therapy, Attempting removal of medically necessary device(s) - Behavioral Condition Attitude: Guarded Behavior: Belligerent, Agitated Orientation: Person, Place Mood: Angry - Evaluation Current Medical Condition Relating to Need for Restraint: agitated and angry. fighting police cuffs then restraints. Pertinent History/Illicit Drugs/Medications/Results: reported history of meth use and likely underlying psych process. Deemed grve disability by DCR yesterday with court order for eval. - Plan Need to Initiate/Renew Violent or Chemical Restraint: agitation, angry, physically agitated. At risk of harm to self and others. Gesturing to providers with body.
[2023-10-09 13:31] LABS: BASOPHILS # (AUTO) 0.1 10^3/uL (0.0-0.1); BASOPHILS % (AUTO) 0.6 %; EOSINOPHILS % (AUTO) 0.4 %; HCT - HEMATOCRIT 38.8 % (37.0-47.0); HGB - HEMOGLOBIN 13.1 g/dL (12.0-16.0); LYMPHOCYTES # (AUTO) 1.5 10^3/uL (1.5-3.5); LYMPHOCYTES % (AUTO) 18.2 %; MEAN CORPUSCULAR HEMOGLOBIN 29.7 pg (27.0-31.0); MEAN CORPUSCULAR HGB CONC 33.8 g/dL (32.0-36.0); MEAN PLATELET VOLUME 10.1 fL (7.9-10.8); MONOCYTES # (AUTO) 0.8 10^3/uL (0.0-1.0); MONOCYTES % (AUTO) 9.4 %; NEUTROPHILS # (AUTO) 5.7 10^3/uL (1.5-6.6); NEUTROPHILS % (AUTO) 71.1 %; PLT - PLATELET COUNT 249 10^3/uL (130-450); RED BLOOD COUNT 4.41 10^6/uL (4.20-5.40); RED CELL DISTRIBUTION WIDTH 13.6 % (12.0-15.0)
[2023-10-09 13:50] LABS: ACETAMINOPHEN 0.3 ug/mL; ALBUMIN 4.3 g/dL (3.2-5.5); ALBUMIN/GLOBULIN RATIO 1.4 (1.0-2.2); ALKALINE PHOSPHATASE 57 IU/L (42-121); ALT ALANINE AMINOTRANSFERASE 14 IU/L (10-60); AST ASPARTATE AMINOTRANSFERASE 17 IU/L (10-42); BILIRUBIN,TOTAL 0.7 mg/dL (0.2-1.0); BUN - BLOOD UREA NITROGEN 15 mg/dL (6-20); CALCIUM 9.5 mg/dL (8.5-10.3); CARBON DIOXIDE - CO2 23 mmol/L (21-32); CHLORIDE 104 mmol/L (101-111); CK- CREATINE KINASE 205 IU/L (30-223); CREATININE 0.7 mg/dL (0.6-1.3); ETOH - ETHANOL < 10.0 mg/dL; GFR - MDRD 94 (>89); GLUCOSE 117 mg/dL (74-104); LIPASE 11 U/L (11-82); MAGNESIUM 1.7 mg/dL (1.7-2.3); POTASSIUM 3.6 mmol/L (3.5-4.5); SODIUM 136 mmol/L (135-145); TOTAL PROTEIN 7.3 g/dL (6.4-8.9)
[2023-10-09 13:52] LABS: SALICYLATE < 1.5 mg/dL
--- NOTE | 2023-10-09 13:55 | ED Physician Documentation ---
Restraint [id number] - Immediate Situation Face to Face Evaluation Date: 10/09/23 Face to Face Evaluation Time: 13:53 Restraint Classification: Violent, chemical - Patient's Reaction & Behaviors Safety: Physically safe Verbal: Demanding (was demanding allowed to go. Is being calmer now after 2nd dosing of medicaitons. ) Harm: Potential harm to self, Potential harm to others Physical: Aggressive behavior, Fighting restraints Other: Disruption of therapy - Behavioral Condition Attitude: Guarded Behavior: Belligerent, Agitated Orientation: Person, Place Mood: Labile (was having some moments of calmer afer initial meds but still quite agitated and angry often. ), Angry - Evaluation Pertinent History/Illicit Drugs/Medications/Results: reported history of meth use and likely underlying psych process. Deemed grve disability by DCR yesterday with court order for eval.
[2023-10-09 13:59] LABS: BILIRUBIN,URINE NEGATIVE (NEGATIVE); GLUCOSE, URINE (UA) NEGATIVE (NEGATIVE); KETONES,URINE (UA) NEGATIVE (NEGATIVE); LEUKOCYTE ESTERASE, URINE NEGATIVE (NEGATIVE); NITRITE,URINE NEGATIVE (NEGATIVE); OCCULT BLOOD,URINE NEGATIVE (NEGATIVE); PH,URINE 6.5 PH (5.0-7.5); PROTEIN,URINE 30 mg/dL (NEGATIVE); UROBILINOGEN,URINE 0.2 (NORMAL) E.U./dL (NORMAL)
[2023-10-09 14:04] LABS: THYROID STIMULATING HORMONE 2.35 uIU/mL (0.34-5.60)
[2023-10-09 14:05] LABS: CLARITY,URINE HAZY (CLEAR)
[2023-10-09 14:22] LABS: AMPHETAMINE SCREEN,URINE POSITIVE (NEGATIVE); BARBITURATE SCREEN,UR NEGATIVE (NEGATIVE); BENZODIAZEPINES SCREEN, URINE NEGATIVE (NEGATIVE); BUPRENORPHINE SCREEN, URINE NEGATIVE (NEGATIVE); COCAINE SCREEN URINE NEGATIVE (NEGATIVE); METHADONE SCREEN, URINE NEGATIVE (NEGATIVE); METHAMPHETAMINES SCREEN, URINE POSITIVE (NEGATIVE); OPIATE SCREEN, URINE NEGATIVE (NEGATIVE); OXYCODONE SCREEN, URINE NEGATIVE (NEGATIVE); THC CANNABINOID SCREEN, URINE POSITIVE (NEGATIVE); TRICYCLIC ANTIDEPRESSANT,URINE NEGATIVE (NEGATIVE)
[2023-10-09 14:25] LABS: BACTERIA,URINE Rare /HPF (None Seen); RBC,URINE 0-5 /HPF (0-5); SQUAMOUS EPITHELIAL CELL,UR FEW Squamous (<= Few); WBC,URINE 0-3 /HPF (0-5)
--- NOTE | 2023-10-09 16:36 | ED Physician Documentation ---
Restraint [id number] - Immediate Situation Face to Face Evaluation Date: 10/09/23 Face to Face Evaluation Time: 16:33 Restraint Classification: Violent, physical - Patient's Reaction & Behaviors Safety: Physically unsafe, Unable to Follow Commands Harm: Potential harm to self Physical: Fighting restraints (She is sleepy and calmer after the medication earlier. However when aroused to verbal or tactile stimulus she responds and angry voice and pulls vigorously at the restraints. She is not able to follow direction for relaxing. I feel she is not safe to be out of them at this time.) - Behavioral Condition Attitude: Other (somnnolent much of the time now) Behavior: Uncooperative, Agitated (intermittent) Orientation: Person Mood: Labile - Evaluation Pertinent History/Illicit Drugs/Medications/Results: reported history of meth use and likely underlying psych process. Deemed grve disability by DCR yesterday with court order for eval. - Plan Need to Initiate/Renew Violent or Chemical Restraint: yes at this point, though will watch carefully when more coherent and cooperative to surroundings, then will remove restraints.
--- NOTE | 2023-10-09 19:27 | ED Physician Documentation ---
Restraint [id number] - Immediate Situation Face to Face Evaluation Date: 10/09/23 Face to Face Evaluation Time: 19:26 Restraint Classification: Violent, physical - Patient's Reaction & Behaviors Safety: Physically safe Other: Resting quietly - Behavioral Condition Attitude: Guarded Behavior: Uncooperative Orientation: Person, Place Mood: Labile, Angry - Evaluation Pertinent History/Illicit Drugs/Medications/Results: reported history of meth use and likely underlying psych process. Deemed grve disability by DCR yesterday with court order for eval. - Plan Need to Initiate/Renew Violent or Chemical Restraint: Patient is able to removed from restraints.
--- NOTE | 2023-10-10 01:27 | ED Physician Documentation ---
ED Addendum - Addendum Addendum: 10/10/23 01:25 I received signout/turnover of care from Dr. Potts; please see his note for complete H&P. In short, patient is undergoing DCR evaluation. At approximately 01:20, the patient became very agitated. She is screaming at staff, walking out into the ED hallway despite repeated instruction to get back into her room. She is cursing at staff and after multiple attempts by ED RN to calm patient and to have her sit on her bed, the patient threw a cup of water at one of the ED nurses. I have ordered 10mg IM zyprexa for acute agitation as a chemical restraint. Restraint [id number] - Immediate Situation Face to Face Evaluation Date: 10/10/23 Face to Face Evaluation Time: 02:01 Restraint Classification: Violent, physical, chemical - Patient's Reaction & Behaviors Safety: Non-compliant Verbal: Swearing Harm: Potential harm to self, Potential harm to others Other: Resting quietly - Behavioral Condition Attitude: Indifferent Behavior: Uncooperative Orientation: Non-responsive (responds to questions with cursing and with answers not relevant to questions (including orientation questions)) Mood: Angry - Evaluation Pertinent History/Illicit Drugs/Medications/Results: reported history of meth use and likely underlying psych process. Deemed grve disability by DCR yesterday with court order for eval. - Plan Need to Initiate/Renew Violent or Chemical Restraint: exhibits behaviors and uses language suggesting she is no longer harm to self/ others
[2023-10-10] MEDS: OLANZapine 10 MG VIAL IM ONE (01:39)
[2023-10-10 05:03] VITALS: BP 113/67; O2SAT 96
[2023-10-10] MEDS: OLANZapine ODT 5 MG TABLET TL ONE (08:09)
--- NOTE | 2023-10-10 08:46 | ED Physician Documentation ---
ED Addendum - Addendum Addendum: 10/10/23 08:44 Patient is a evaluated in ED by DCR and detained involuntarily. At the end of my shift, [facility]
== END 2023-10-10 08:30 ==
LOC: EDUNIT# → ED 11:37
DX: F15.10 Other stimulant abuse, uncomplicated (principal); F29 Unspecified psychosis not due to a substance or known physiological condition; F20.9 Schizophrenia, unspecified; F91.9 Conduct disorder, unspecified; F17.200 Nicotine dependence, unspecified, uncomplicated
CPT/HCPCS: 36415; 51701; 80053; 80143; 80179; 80306; 81001; 81003; 82077; 82550; 83690; 83735; 84443; 85025; 87086; 87635; 93005; 96372; 99285